=== PATIENT | male | born 1950 | race Caucasian/White ===

== ENCOUNTER 2017-06-18 09:00 | Inpatient (IN) ==
[2017-06-18] MEDS ORDERED: *HR* HYDROmorphone (PF) 1 MG/ML SYRINGE IVP ONE (09:12)
[2017-06-18] MEDS ORDERED: 0.9 % Sodium Chloride 1,000 ML IVC ONE (09:12)
--- NOTE | 2017-06-18 09:29 | Emergency Department Note ---
Disposition Clinical Impression: Left acetabular fracture Qualifiers: Encounter type: initial encounter Sublocation of acetabulum: unspecified portion of acetabulum Fracture type: closed Fracture alignment: nondisplaced Qualified Code(s): S32.402A - Unspecified fracture of left acetabulum, initial encounter for closed fracture Disposition: Admitted As Inpatient Condition: Good Referrals: NONE,PCP [Non-Partnered Physician] - Forms: ED Satisfaction Letter Time of Disposition: 12:08 Extremity Problem HPI - General Chief complaint: ED Extremity Problem,Nontraumatic Stated complaint: L hip pain Time Seen by Provider: 06/18/17 09:02 Source: patient Limitations: no limitations Nursing Notes Reviewed: Yes Vital Signs Reviewed: Yes - History of Present Illness HPI Narrative: 66 year old male who was most recently diagnosed with lung cancer and has lytic lesions to his left hip staets that about 7 weeks ago he injured his left hip while he was trimming a tree which incidentally started his workup because of findings of lytic lesions to his right and left hip. He has been recieviing radiation therapy per Dr. Rico in addition was schedled to start Chemotherapy thsi week He staes that since last night he has been experiencing increased left hip pain to the point that he is not able to ambulate. at baseline luis has been wallkig with a walker and since last night to this morning he can no longer bear weight on his left hip secondary to pain. Motor/ sensory and pulses intact. 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 Luis is concerned for osteomyleitis vs, pathologic fracture Pain Scale: 10 - Related Data Home Medications Medication Instructions Recorded Confirmed Albuterol Sulfate [Ventolin Hfa] 2 puff IH Q4H PRN 05/23/17 06/18/17 Umeclidinium Brm/Vilanterol Tr 1 puff IH DAILY 05/23/17 06/18/17 [Anoro Ellipta 62.5-25 Mcg INH] amLODIPine [Norvasc] 5 mg PO BID 05/23/17 06/18/17 Previous Rx's Medication Instructions Recorded Sennosides [Senna] 1 tab PO BID PRN #60 tablet 05/24/17 OxyCODONE/APAP 5/325 [Percocet 1 tab PO Q6-8H PRN #90 06/03/17 5/325 MG] Folic Acid 1 mg PO DAILY #30 tablet 06/05/17 Allergies Allergy/AdvReac Type Severity Reaction Status Date / Time codeine Allergy Hives Verified 05/23/17 12:15 Constitutional: Denies: fever, chills, weakness, weight change Eyes: Denies: eye pain, eye discharge, vision change ENT ED: Denies: ear pain, throat pain, dental pain, hearing loss, epistaxis, congestion, dysphagia Cardiovascular: Denies: chest pain, palpitations, dyspnea on exertion, edema, syncope Respiratory: Denies: cough, dyspnea, wheezes, hemoptysis, stridor Gastrointestinal: Denies: abdominal pain, nausea, vomiting, diarrhea, constipation, hematemesis, melena, hematochezia Genitourinary: Denies: urgency, dysuria, frequency, hematuria Musculoskeletal: Reports: other (left hip pain). Denies: back pain, neck pain, arthralgia, myalgia Integumentary: Denies: rash, abrasion, lesions Neurological: Denies: headache, weakness, numbness, paresthesias, confusion, abnormal gait, vertigo Psychiatric: Denies: anxiety, depression, suicidal thoughts, homicidal thoughts , auditory hallucinations, visual hallucinations Endocrine: Denies: fatigue Hematological/Lymphatic: Denies: easy bleeding, easy bruising Allergic/Immunologic: Denies: facial swelling, urticaria Past Medical History - Past Medical History Medical history: Reports: cancer, hypertension, other Surgical history: Reports: other Psychiatric history: Reports: no psych history - Social History Smoking Status: Current every day smoker Smokeless Tobacco Status: No Alcohol use: Reports: rarely Drug use: Reports: none Physical Exam - General Limitations: no limitations General appearance: alert, in no apparent distress - Head Head exam: atraumatic, normocephalic, normal inspection - Eye Eye exam: Present: normal appearance, PERRL, EOMI - Expanded Eye Exam Pupils: Left: reactive - ENT ENT exam: normal exam, normal oropharynx, mucous membranes moist - Expanded ENT Exam External ear exam: Present: normal external inspection Mouth exam: Present: normal external inspection Teeth exam: Present: normal inspection Throat exam: Present: normal inspection - Neck Neck exam: Present: normal inspection, full ROM, trachea midline - Chest Chest inspection: Present: normal inspection, symmetric chest wall rise - Respiratory Respiratory exam: Present: normal lung sounds bilaterally - Cardiovascular Cardiovascular exam: Present: regular rate, normal rhythm, normal heart sounds - Abdominal Exam Abdominal exam: Present: soft, Non-Tender. Absent: tenderness, distention, guarding, rebound, rigidity - Extremities Exam Extremities exam: Present: normal inspection, full ROM. Absent: tenderness, pedal edema - Expanded Upper Extremity Exam Shoulder exam: Present: normal inspection, full ROM Arm exam: Present: normal inspection, full ROM Elbow exam: Present: normal inspection, full ROM Forearm/Wrist exam: Present: normal inspection, full ROM Hand exam: Present: normal inspection, full ROM Vascular exam: Normal: capillary refill, radial pulse - Expanded Lower Extremity Exam Hip/Pelvis exam: Present: normal inspection, tenderness (left acetabulum, decreased of ROM secondary to pain). Absent: full ROM, swelling Upper leg exam: Present: normal inspection, full ROM Knee exam: Present: normal inspection, full ROM Lower leg exam: Present: normal inspection, full ROM Ankle exam: Present: normal inspection, full ROM Foot/toe exam: Present: normal inspection, full ROM Neurovascular/Tendon exam: Absent: motor deficit, sensory deficit, tendon deficit - Back Exam Back exam: Present: normal inspection, full ROM. Absent: tenderness - Neurological Exam Neurological exam: Present: alert, oriented X3 - Expanded Neurological Exam Patient oriented to: Present: person, place, time Coma Scale Eye Opening: Spontaneous Coma Scale Motor Response: Obeys Commands Coma Scale Verbal Response: Oriented Coma Scale Total: 15 - Psychiatric Psychiatric exam: Present: normal affect, normal mood - Skin Skin exam: Present: warm, dry, intact, normal color Course Course Narrative: we will do a CT and IV dliaudid for pain control - Reevaluation(s) Reevaluation #1: updated patient on reults and he is agreeable with plan Time: 12:16 - Consultations Consultation #1: discussed case with Dr. Murcia and he will consult luis with admission to medicine. Time: 12:07 Consultation #2: discussed case with Dr. Hodges and she acceps patient for admission. Time: 12:16 Vital Signs Temperature 98.5 F 06/18/17 09:05 Pulse Rate 99 06/18/17 09:05 Respiratory Rate 15 06/18/17 09:05 Blood Pressure 174/108 06/18/17 09:05 O2 Sat by Pulse Oximetry 93 06/18/17 09:05 Temperature 98.5 F 06/18/17 09:05 Pulse Rate 95 06/18/17 10:58 Respiratory Rate 16 06/18/17 10:58 Blood Pressure 160/89 06/18/17 10:58 O2 Sat by Pulse Oximetry 98 06/18/17 10:58 Oxygen Delivery Oxygen Delivery Room Air Extremity Problem, Nontraumati - Lab Data Result diagrams: 06/18/17 09:19 06/18/17 09:19 Lab Results 06/18/17 06/18/17 06/18/17 Range/Units 09:19 09:19 09:19 WBC 10.0 (4.3-11.1) K/mcL RBC 4.44 (4.19-5.50) M/mcL Hgb 14.3 (12.9-16.9) g/dL Hct 40.8 (37.5-50.1) % MCV 91.9 (83.0-100.0) fL MCH 32.2 (28.0-33.3) pg MCHC 35.0 (31.6-35.5) g/dL RDW 12.7 (11.5-14.5) % Plt Count 205 (140-400) K/mcL MPV 8.7 L (9.4-12.4) fL Immature Gran % 0.5 (0-4) % Seg Neutrophils % 84.4 % Lymphocytes % 4.6 % Monocytes % 8.6 % Eosinophils % 1.4 % Basophils % 0.5 % Neutrophils # 8.4 (1.6-8.9) K/mcL Lymphocytes # 0.5 L (0.6-4.6) K/mcL Monocytes # 0.9 (0.0-1.3) K/mcL Eosinophils # 0.1 (0.0-0.6) K/mcL Basophils # 0.1 (0.0-0.2) K/mcL Immature Plt Fraction 2.3 (1.1-6.1) % ESR 61 H (0-10) mm/hr Sodium 131 L (136-145) mEq/L Potassium 3.9 (3.5-4.5) mEq/L Chloride 97 L (98-109) mEq/L Carbon Dioxide 24 (19-29) mEq/L BUN 8 (8-26) mg/dL Creatinine 0.83 (0.72-1.25) mg/dL Est GFR ( Amer) > 60 (> 60) Est GFR (Non-Af Amer) > 60 (> 60) BUN/Creatinine Ratio 10 (6-26) Glucose 101 H (70-99) mg/dL Calculated Osmolality 270 L (280-300) Lactic Acid (0.5-2.2) mmol/L Calcium 9.4 (8.6-10.8) mg/dL Total Bilirubin 0.4 (0.2-1.2) mg/dL AST 15 (5-34) Units/L ALT 14 (0-55) Units/L Alkaline Phosphatase 155 H (38-126) Units/L C-Reactive Protein 35 H (Less than 5) mg/L Serum Total Protein 7.5 (6.0-8.3) g/dL Albumin 3.6 (3.5-5.0) g/dL Globulin 3.9 H (2.4-3.5) g/dL Albumin/Globulin Ratio 0.9 L (1.1-2.2) 06/18/17 Range/Units 09:19 WBC (4.3-11.1) K/mcL RBC (4.19-5.50) M/mcL Hgb (12.9-16.9) g/dL Hct (37.5-50.1) % MCV (83.0-100.0) fL MCH (28.0-33.3) pg MCHC (31.6-35.5) g/dL RDW (11.5-14.5) % Plt Count (140-400) K/mcL MPV (9.4-12.4) fL Immature Gran % (0-4) % Seg Neutrophils % % Lymphocytes % % Monocytes % % Eosinophils % % Basophils % % Neutrophils # (1.6-8.9) K/mcL Lymphocytes # (0.6-4.6) K/mcL Monocytes # (0.0-1.3) K/mcL Eosinophils # (0.0-0.6) K/mcL Basophils # (0.0-0.2) K/mcL Immature Plt Fraction (1.1-6.1) % ESR (0-10) mm/hr Sodium (136-145) mEq/L Potassium (3.5-4.5) mEq/L Chloride (98-109) mEq/L Carbon Dioxide (19-29) mEq/L BUN (8-26) mg/dL Creatinine (0.72-1.25) mg/dL Est GFR ( Amer) (> 60) Est GFR (Non-Af Amer) (> 60) BUN/Creatinine Ratio (6-26) Glucose (70-99) mg/dL Calculated Osmolality (280-300) Lactic Acid 1.0 (0.5-2.2) mmol/L Calcium (8.6-10.8) mg/dL Total Bilirubin (0.2-1.2) mg/dL AST (5-34) Units/L ALT (0-55) Units/L Alkaline Phosphatase (38-126) Units/L C-Reactive Protein (Less than 5) mg/L Serum Total Protein (6.0-8.3) g/dL Albumin (3.5-5.0) g/dL Globulin (2.4-3.5) g/dL Albumin/Globulin Ratio (1.1-2.2)
[2017-06-18 09:30] LABS: Basophils # 0.1 K/mcL (0.0-0.2); Basophils % 0.5 %; Eosinophils # 0.1 K/mcL (0.0-0.6); Eosinophils % 1.4 %; Hematocrit 40.8 % (37.5-50.1); Hemoglobin 14.3 g/dL (12.9-16.9); Immature Granulocytes % 0.5 % (0-4); Immature Platelets 2.3 % (1.1-6.1); Lymphocytes # 0.5 K/mcL (0.6-4.6); Lymphocytes % 4.6 %; Mean Corpuscular Hemoglobin 32.2 pg (28.0-33.3); Mean Corpuscular Volume 91.9 fL (83.0-100.0); Mean Platelet Volume 8.7 fL (9.4-12.4); Monocytes # 0.9 K/mcL (0.0-1.3); Monocytes % 8.6 %; Neutrophils # 8.4 K/mcL (1.6-8.9); Platelet Count 205 K/mcL (140-400); Red Blood Count 4.44 M/mcL (4.19-5.50); Red Cell Distribution Width 12.7 % (11.5-14.5); Segmented Neutrophils % 84.4 %
[2017-06-18 09:44] LABS: Alanine Aminotransferase 14 Units/L (0-55); Albumin 3.6 g/dL (3.5-5.0); Albumin/Globulin Ratio 0.9 (1.1-2.2); Alkaline Phosphatase 155 Units/L (38-126); Aspartate Amino Transferase 15 Units/L (5-34); BUN/Creatinine Ratio 10 (6-26); Bilirubin,Total 0.4 mg/dL (0.2-1.2); Blood Urea Nitrogen 8 mg/dL (8-26); C-Reactive Protein 35 mg/L (Less than 5); Calcium 9.4 mg/dL (8.6-10.8); Carbon Dioxide 24 mEq/L (19-29); Chloride 97 mEq/L (98-109); Globulin 3.9 g/dL (2.4-3.5); Glucose 101 mg/dL (70-99); Osmolality,Calculated 270 (280-300); Potassium 3.9 mEq/L (3.5-4.5); Sodium 131 mEq/L (136-145); Total Protein 7.5 g/dL (6.0-8.3); eGFR For African Americans > 60 (> 60); eGFR For Non-African Americans > 60 (> 60)
[2017-06-18] MEDS ORDERED: Acetaminophen 325 MG TABLET PO PRN (14:10)
[2017-06-18] MEDS ORDERED: Naloxone 0.4 MG/ML INJ IVP PRN (14:10)
[2017-06-18] MEDS ORDERED: *HR* HYDROmorphone (PF) 1 MG/ML SYRINGE IVP PRN (14:10)
[2017-06-18] MEDS ORDERED: Ondansetron 4 MG/2 ML VIAL IVP PRN (14:10)
--- NOTE | 2017-06-18 15:06 | Internal Med History&Physical ---
Date of Encounter: 06/18/17 Time of Encounter: 15:07 Assessment and Plan (1) Left acetabular fracture Current visit: Yes Status: Acute Patient presented with increased left hip pain. CT pelvis showed pathologic fracture of left acetabulum. Percocet, morphine PRN for pain Dr. Murcia of orthopedic surgery consulted and will see patient. PT/OT consults Qualifiers: Encounter type: initial encounter Sublocation of acetabulum: unspecified portion of acetabulum Fracture type: closed Fracture alignment: nondisplaced Qualified Code(s): S32.402A - Unspecified fracture of left acetabulum, initial encounter for closed fracture (2) COPD (chronic obstructive pulmonary disease) Current visit: Yes Status: Acute Patient not reporting any increased SOB or cough. He is not in exacerbation. Continue home doses of medications. Qualifiers: COPD type: unspecified COPD Qualified Code(s): J44.9 - Chronic obstructive pulmonary disease, unspecified (3) Smoker Current visit: Yes Status: Acute Patient continues to smoke despite lung cancer diagnosis. He reports he has tried to quit multiple times. Offered encouragement. Nicotine patch and smoking cessation education ordered. (4) Primary cancer of right lung metastatic to other site Current visit: Yes Status: Chronic Patient with known metastatic lung cancer and follows with Dr. Khanna as an outpatient. He has had palliative radiation to his pelvis with Dr. Rico. He is scheduled to start chemo this week and is concerned about potential delay. Oncology consulted and will see patient. (5) DVT prophylaxis Current visit: Yes Status: Acute SCDs Heparin TID Internal Medicine - H&P: HPI Chief complaint: left hip pain Admitted From: Emergency Dept Plans for Post Hospital Care: Home History of present illness: Mr. Santoyo is a 66 year old male with hypertension, COPD, and metastatic lung cancer presented to the emergency department today with increased left hip pain. Patient had bilateral hip pain associated with his metastasis for several weeks, his right hip pain improved with palliative radiation, his left hip pain progressed and yesterday he was unable to bear any weight over tolerate any movement of the hip joint without severe pain. He denies any loss of movement or sensation in the lower left leg. He denies any chest pain, shortness of breath, palpitations, fever, chills or sweats. Evaluation in the emergency department included a CT of the pelvis which showed pathologic fracture of the left lateral acetabular roof, as well as chronic lytic lesions in both hips. ESR was elevated at 61, CRP and Alk phos were also elevated. He was mildly hyponatremic with sodium of 131. Lactate was normal at 1.0. Other labs are grossly normal. On exam, patient alert and oriented, in no acute distress. Lungs with diminished breath sounds bilaterally, heart has regular rate and rhythm. Hip is not tender to palpation, but patient does have severe pain with any passive range of motion of the left hip. Past Med Surg Social Fam HX - Past Medical History Medical history: cancer (metastatic lung cancer), COPD, hypertension, other Psychiatric history: no psych history - Past Surgical History Surgical History: no surgical history, other - Social History Smoking Status: Current every day smoker Smokeless Tobacco Status: No Alcohol use: rarely Drug use: none - Family History Brother Living Status: Age at : 61 Cause of : Prostate cancer Hx Family Cancer: Yes Grandmother Living Status: Age at : 95 Hx Family Cancer: Yes Grandfather Living Status: Age at : 90 Hx Family Cancer: Yes Internal Medicine - H&P: Meds Albuterol Sulfate [Ventolin Hfa] 2 puff IH Q4H PRN 05/23/17 [History] Umeclidinium Brm/Vilanterol Tr [Anoro Ellipta 62.5-25 Mcg INH] 1 puff IH DAILY 05/23/17 [History] amLODIPine [Norvasc] 5 mg PO BID 05/23/17 [History] OxyCODONE/APAP 5/325 [Percocet 5/325 MG] 1 tab PO Q6-8H PRN #90 06/03/17 [Rx] Folic Acid 1 mg PO DAILY #30 tablet 06/05/17 [Rx] Docusate [Colace] 100 mg PO BID 06/18/17 [History] 3 Allergy/AdvReac Type Severity Reaction Status Date / Time codeine Allergy Hives Verified 05/23/17 12:15 All Systems PM: A 10-system review of systems was performed and is negative for pertinent findings except as documented above in the HPI. - Constitutional Constitutional: anorexia, no chills, no fever(s), no night sweats - EENT Eyes: no change in vision, no discharge, no pain, no photophobia Ears: no ear discharge, no ear pain, no tinnitus Nose, mouth and throat: no dysphagia, no nasal discharge, no neck pain, no sore throat - Cardiovascular Cardiovascular ROS IM: no chest pain, no diaphoresis, no dyspnea, no lightheadedness, no palpitations, no syncope - Respiratory Respiratory: cough (dry), no dyspnea, no wheezing, no excessive phlegm production - Gastrointestinal Gastrointestinal: no abdominal pain, no diarrhea, no hematemesis, no hematochezia, no melena, no nausea, no vomiting - Musculoskeletal Musculoskeletal ROS IM: no numbness, no tingling Additional comments: pain of left hip - Integumentary Integumentary IM: no rash, no unusual bruising - Neurological Neurological ROS: no confusion, no convulsions, no focal weakness, no numbness, no tingling, no tremor(s) - Hematologic/Lymphatic Hematologic/Lymphatic: no easy bruising - Constitutional Vitals: Temp Pulse Resp BP Pulse Ox 98.5 F 78 0 0/0 99 06/18/17 09:05 06/18/17 12:39 06/18/17 12:40 06/18/17 12:40 06/18/17 12:39 General appearance: Present: A&O X 3, pleasant, no acute distress - Head Head exam: Present: atraumatic, normocephalic - Eye Eye exam: Present: PERRL, conjuntiva pink, sclera anicteric Pupils: Present: PERRL - Neck Neck exam general surgery: Present: supple, trachea midline. Absent: lymphadenopathy - Respiratory Respiratory exam: Present: decreased breath sounds. Absent: accessory muscle use, rales, rhonchi, wheezes - Cardiovascular Cardiovascular exam: Present: RRR, +S1, +S2. Absent: diastolic murmur, gallop, rubs, systolic murmur - GI/Abdominal GI/Abdominal exam: Present: normal bowel sounds, soft, no peritoneal signs. Absent: distended, tenderness - Extremities Exam Extremities exam: Present: warm, radial pulses palpable and symmetrical. Absent : calf tenderness, cyanotic, pedal edema Additional comments: Pain with passive range of motion of left hip. - Neurological Exam Neurological exam: Present: CN II-XII intact, oriented X3, no focal deficits. Absent: pronater drift, facial droop, speech deficit - Skin Skin exam: Present: dry, intact Internal Med - H&P Results - Labs CBC & Chem 7: 06/18/17 09:19 06/18/17 09:19 Labs: All Lab Results (24 Hours) 06/18/17 06/18/17 06/18/17 Range/Units 09:19 09:19 09:19 WBC 10.0 (4.3-11.1) K/mcL RBC 4.44 (4.19-5.50) M/mcL Hgb 14.3 (12.9-16.9) g/dL Hct 40.8 (37.5-50.1) % MCV 91.9 (83.0-100.0) fL MCH 32.2 (28.0-33.3) pg MCHC 35.0 (31.6-35.5) g/dL RDW 12.7 (11.5-14.5) % Plt Count 205 (140-400) K/mcL MPV 8.7 L (9.4-12.4) fL Immature Gran % 0.5 (0-4) % Seg Neutrophils % 84.4 % Lymphocytes % 4.6 % Monocytes % 8.6 % Eosinophils % 1.4 % Basophils % 0.5 % Neutrophils # 8.4 (1.6-8.9) K/mcL Lymphocytes # 0.5 L (0.6-4.6) K/mcL Monocytes # 0.9 (0.0-1.3) K/mcL Eosinophils # 0.1 (0.0-0.6) K/mcL Basophils # 0.1 (0.0-0.2) K/mcL Immature Plt Fraction 2.3 (1.1-6.1) % ESR 61 H (0-10) mm/hr Sodium 131 L (136-145) mEq/L Potassium 3.9 (3.5-4.5) mEq/L Chloride 97 L (98-109) mEq/L Carbon Dioxide 24 (19-29) mEq/L BUN 8 (8-26) mg/dL Creatinine 0.83 (0.72-1.25) mg/dL Est GFR ( Amer) > 60 (> 60) Est GFR (Non-Af Amer) > 60 (> 60) BUN/Creatinine Ratio 10 (6-26) Glucose 101 H (70-99) mg/dL Calculated Osmolality 270 L (280-300) Lactic Acid (0.5-2.2) mmol/L Calcium 9.4 (8.6-10.8) mg/dL Total Bilirubin 0.4 (0.2-1.2) mg/dL AST 15 (5-34) Units/L ALT 14 (0-55) Units/L Alkaline Phosphatase 155 H (38-126) Units/L C-Reactive Protein 35 H (Less than 5) mg/L Serum Total Protein 7.5 (6.0-8.3) g/dL Albumin 3.6 (3.5-5.0) g/dL Globulin 3.9 H (2.4-3.5) g/dL Albumin/Globulin Ratio 0.9 L (1.1-2.2) 06/18/17 Range/Units 09:19 WBC (4.3-11.1) K/mcL RBC (4.19-5.50) M/mcL Hgb (12.9-16.9) g/dL Hct (37.5-50.1) % MCV (83.0-100.0) fL MCH (28.0-33.3) pg MCHC (31.6-35.5) g/dL RDW (11.5-14.5) % Plt Count (140-400) K/mcL MPV (9.4-12.4) fL Immature Gran % (0-4) % Seg Neutrophils % % Lymphocytes % % Monocytes % % Eosinophils % % Basophils % % Neutrophils # (1.6-8.9) K/mcL Lymphocytes # (0.6-4.6) K/mcL Monocytes # (0.0-1.3) K/mcL Eosinophils # (0.0-0.6) K/mcL Basophils # (0.0-0.2) K/mcL Immature Plt Fraction (1.1-6.1) % ESR (0-10) mm/hr Sodium (136-145) mEq/L Potassium (3.5-4.5) mEq/L Chloride (98-109) mEq/L Carbon Dioxide (19-29) mEq/L BUN (8-26) mg/dL Creatinine (0.72-1.25) mg/dL Est GFR ( Amer) (> 60) Est GFR (Non-Af Amer) (> 60) BUN/Creatinine Ratio (6-26) Glucose (70-99) mg/dL Calculated Osmolality (280-300) Lactic Acid 1.0 (0.5-2.2) mmol/L Calcium (8.6-10.8) mg/dL Total Bilirubin (0.2-1.2) mg/dL AST (5-34) Units/L ALT (0-55) Units/L Alkaline Phosphatase (38-126) Units/L C-Reactive Protein (Less than 5) mg/L Serum Total Protein (6.0-8.3) g/dL Albumin (3.5-5.0) g/dL Globulin (2.4-3.5) g/dL Albumin/Globulin Ratio (1.1-2.2) - Diagnostic Studies CT scan - pelvis Additional comments: Pelvis CT 06/18/17 09:12 IMPRESSION: 1. Lytic lesion involving the left acetabulum most suspicious for osseous metastasis. There is associated pathologic fracture of the lateral left acetabular roof. 2. Lytic lesion involving the medial right iliac bone with associated heterogeneous soft tissue mass extending into the adjacent musculature, as described above. 3. Infrarenal abdominal aortic aneurysm measuring at least 3.6 cm in diameter. This was seen in its entirety on the preceding CT from 05/17/2017. Please refer to recommendations in that report for future follow-up. D/ / 06/18/2017 11:34:48 Emani Chery MD / lópez Interpreting Provider: Emani Chery MD
[2017-06-18] MEDS ORDERED: *HR* Morphine 2 MG/ML SYRINGE IVP PRN (15:31)
[2017-06-18] MEDS: Nicotine 14 MG PATCH.TD24 TD SCH (15:38)
--- NOTE | 2017-06-18 17:20 | Orthopedic Consult Note ---
Date of Encounter: 06/18/17 Time of Encounter: 17:08 Assessment and Plan (1) Metastatic cancer to bone Current Visit: Yes Status: Acute Patient's case reviewed with . CT scan shows new linear lucency, along acetabulum, concerning for fracture. Because of the significant lesion and metastasis, this is likely a pathological fracture, which may contribute the the increase in his pain. We discussed both conservative and surgical options. Conservative options: Palliative management, pain control, PT as tolerated, along with further pelvic support. Will get SI belt to aid with support and ambulation. Discussed with oncologist, who also recommended further radiation treatment for palliative control. Surgical options: Total Hip Replacement I reviewed both risks and benefits to both options, including fracture, infection, blood clot, medical complications, along with hardware failure and - all associated with surgical management. At this time, patient would like to proceed with conservative treatment, focusing on pain control and management of his primary lung cancer through chemotherapy and medications. aware. (2) Primary cancer of right lung metastatic to other site Current Visit: Yes Status: Chronic (3) COPD (chronic obstructive pulmonary disease) Current Visit: Yes Status: Acute Qualifiers: COPD type: unspecified COPD Qualified Code(s): J44.9 - Chronic obstructive pulmonary disease, unspecified (4) Smoker Current Visit: Yes Status: Acute History of Present Illness Chief complaint: Hip Pain - Left HPI: Mr. Santoyo is a 66 year old male, Adenomacarcinoma of lung, associated with metastatic bone involvement to Right pelvis, left acetabulum and vertebrae. Other comorbidities: hypertension, COPD. Patient admitted to [facility] secondary to increase in Left hip pain that started last night. He was ambulatory prior to his increase in pain; however he is now unable to ambulate because of his left hip pain. He is unable to tolerate movement of the hip joint without severe pain. Laying in bed, he has no pain. He states his pain is a pinpoint pain to lateral aspect of hip joint. He denies any loss of movement or sensation in the lower left leg. He denies N/T or radiation of pain to left LE. He denies any falls or trauma to hip. Workup for this started in April. Left Hip MRI 04/2017: FINDINGS: BONE MARROW: There is extensive abnormal low T1, T2 signal within the visualized lower lumbar spine concerning for infiltrating marrow process. Additional note made of a destructive mass involving the right innominate measuring up to 8.6 x 7.1 cm. The lesion demonstrates cortical disruption and extends through the SI joint. There is associated extraosseous manifestation. The lesion is mildly hyperintense on T1 weighted signal and mixed hyperintense on T2 signal weighted imaging. There is a similar appearing lesion within the left acetabulum with associated cortical disruption anteriorly. The lesion involving the left acetabulum measuring up to 6.3 x 3.3 cm. Additional scattered lesions within the left femoral neck, left ischial tuberosity. HIP JOINT: Mild narrowing of the left hip joint space. There is no evidence of synovitis. LABRUM: There is no evidence of paralabral cyst. BURSAE: There is no evidence of trochanteric bursitis. Distention of the left iliopsoas bursa noted. SCIATIC NERVE: The course of the sciatic nerve is normal and there is no abnormal mass seen impinging on it. MUSCLES / TENDONS: There is no evidence of intramuscular strain or tear. INTRAPELVIC CONTENTS / SOFT TISSUES: Scattered colonic diverticula are appreciated. MR/MR hip LT wo con IMPRESSION: 1. Multiple scattered lytic destructive lesions concerning for metastatic disease, the largest involving the right innominate with extraosseous manifestation 8.6 x 7.1 cm. 2. Marrow infiltrating process lumbar spine. Correlate hematologic assessment. Multiple myeloma should be excluded. Left ABD/Pelvis CT 05/17/17 Bones/Soft Tissues: Large destructive bony lesion involving the superior medial right iliac wing. The lesion measures about 7.5 cm across, 6.5 cm AP and 6.1 cm in height. Extension across the sacroiliac joint is seen with involvement of the right side of the sacrum. Heterogeneous density of the bony pelvis consistent with additional metastatic disease. Additional lytic lesion in the left superior acetabulum measuring 4 cm across, 3.9 cm AP and about 2.8 cm in height. No spinal fracture or definite destructive bony lesions seen. Large direct right inguinal hernia containing unobstructed loops of small bowel. Hernia sac extends into the scrotum. CT/CT abd pelvis w iv and oral IMPRESSION: 3.3 cm spiculated right lower lobe lesion consistent primary lung cancer. Large destructive metastatic lesion involving the posterior superior medial right iliac wing and right sacrum. Additional destructive lesion in the superior left acetabulum. Smaller lesions also suspected in the bony pelvis. No evident hepatic or adrenal metastatic disease. Small nonobstructing calculus superiorly in the right kidney. Small abdominal aortic aneurysm. Large direct right inguinal hernia containing loops of small bowel. Marked enlargement of the prostate. Left Hip CT 06/18/17: CT/CT pelvis w iv no oral IMPRESSION: 1. Lytic lesion involving the left acetabulum most suspicious for osseous metastasis. There is associated pathologic fracture of the lateral left acetabular roof. 2. Lytic lesion involving the medial right iliac bone with associated heterogeneous soft tissue mass extending into the adjacent musculature, as described above. 3. Infrarenal abdominal aortic aneurysm measuring at least 3.6 cm in diameter. This was seen in its entirety on the preceding CT from 05/17/2017. Please refer to recommendations in that report for future follow-up. Patient had bilateral hip pain associated with his metastasis for several weeks , and he underwent palliative radiation low-dose to his Right pelvis and Left Hip. His right hip pain improved with palliative radiation, his left hip pain progressed. He has had bone bx confirming bone metastasis associated with lung cancer. He is scheduled to start his chemotherapy and treatments 06/20/17 for his Lung Adenocarcinoma. He denies any chest pain, shortness of breath, palpitations, fever, chills or sweats. Evaluation in the emergency department included a CT of the pelvis which showed pathologic fracture of the left lateral acetabular roof, as well as chronic lytic lesions in both hips. ESR was elevated at 61, CRP and Alk phos were also elevated. He was mildly hyponatremic with sodium of 131. Lactate was normal at 1.0. Other labs are grossly normal. Exam: A&O x 3 Left Hip No swelling, erythema or ecchymosis. No obvious deformity noted. ROM limited secondary to pain with both PROM and AROM. Unable to WB. Strength - limited eval secondary to pain. NV intact distally. Past Med Surg Social Fam HX - Past Medical History Medical history: cancer (metastatic lung cancer), COPD, hypertension, other Psychiatric history: no psych history - Past Surgical History Surgical History: no surgical history, other - Social History Smoking Status: Current every day smoker Smokeless Tobacco Status: No Alcohol use: rarely Drug use: none - Family History Brother Living Status: Age at : 61 Cause of : Prostate cancer Hx Family Cancer: Yes Grandmother Living Status: Age at : 95 Hx Family Cancer: Yes Grandfather Living Status: Age at : 90 Hx Family Cancer: Yes Medications and Allergies Albuterol Sulfate [Ventolin Hfa] 2 puff IH Q4H PRN 05/23/17 [History] Umeclidinium Brm/Vilanterol Tr [Anoro Ellipta 62.5-25 Mcg INH] 1 puff IH DAILY 05/23/17 [History] amLODIPine [Norvasc] 5 mg PO BID 05/23/17 [History] OxyCODONE/APAP 5/325 [Percocet 5/325 MG] 1 tab PO Q6-8H PRN #90 06/03/17 [Rx] Folic Acid 1 mg PO DAILY #30 tablet 06/05/17 [Rx] Docusate [Colace] 100 mg PO BID 06/18/17 [History] 3 Allergy/AdvReac Type Severity Reaction Status Date / Time codeine Allergy Hives Verified 05/23/17 12:15 All Systems Reviewed: A 10-system review of systems was performed and is negative for pertinent findings except as documented above in the HPI. - Constitutional Constitutional: as per HPI - Cardiovascular Cardiovascular: as per HPI - Respiratory Respiratory: as per HPI - Musculoskeletal Musculoskeletal: as per HPI Physical Exam - Constitutional Vitals: Temp Pulse Resp BP Pulse Ox 98.0 F 90 16 136/86 97 06/18/17 15:55 06/18/17 15:55 06/18/17 15:55 06/18/17 15:55 06/18/17 15:55 - Hip left Gait: other Tenderness with palpation: anterior, lateral ROM: extension: abnormal ROM: flexion: abnormal ROM: abduction: abnormal ROM: adduction: abnormal Strength: extension: Weak Strength: flexion: Weak Results - Labs Result Diagrams: 06/18/17 09:19 06/18/17 09:19 Labs: Abnormal lab results MPV 8.7 fL (9.4-12.4) L 06/18/17 09:19 Lymphocytes # 0.5 K/mcL (0.6-4.6) L 06/18/17 09:19 ESR 61 mm/hr (0-10) H 06/18/17 09:19 Sodium 131 mEq/L (136-145) L 06/18/17 09:19 Chloride 97 mEq/L (98-109) L 06/18/17 09:19 Glucose 101 mg/dL (70-99) H 06/18/17 09:19 Calculated Osmolality 270 (280-300) L 06/18/17 09:19 Alkaline Phosphatase 155 Units/L (38-126) H 06/18/17 09:19 C-Reactive Protein 35 mg/L (Less than 5) H 06/18/17 09:19 Globulin 3.9 g/dL (2.4-3.5) H 06/18/17 09:19 Albumin/Globulin Ratio 0.9 (1.1-2.2) L 06/18/17 09:19 All other labs normal. - Diagnostic results Hip x-ray: report reviewed, image reviewed Hip MRI: report reviewed, image reviewed Hip CT: report reviewed, image reviewed Pelvic AP x-ray: report reviewed, image reviewed Consult Discharge Plan - Plan Referrals: Yovanny Briceno Jr, MD [Primary Care Provider] -
--- NOTE | 2017-06-18 18:46 | Oncology Inp Consult Note ---
Date of Encounter: 06/18/17 Time of Encounter: 17:00 Assessment and Plan (1) Primary cancer of right lung metastatic to other site Status: Chronic Assessment and plan: Patient with stage IV adenocarcinoma of the lung, with bony metastatic disease to both hips, status post radiation to the right and left hip acetabular region over 5 fractions, patient has noticed worsening pain with fracture of roof of a stab-wound, unable to move left hip. I will discuss with rad onc for any possibility of addition RT around the area for pain control. Orthopedics bedside discussing with patient treatment options- SI belt for support/any palliative surgical intervention. Systemic chemotherapy/PDLI depending on status-- to be rescheduled to be received in clinic. 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 Right hilar lymphadenopathy, status post bronchoscopy biopsy showed adenocarcinoma, TTF-1 was positive. Patient had received palliative radiotherapy to the left acetabular lesion, right ilium as well as C3 vertebral disease. He is scheduled to receive systemic treatment this week but hospitalized due to increasing pain in the left hip. Patient reports that radiation had help control her right hip pain. Patient is unable to move the left hip and imaging shows a lytic lesion involving the left acetabulum with associated pathologic fracture of lateral left acetabular roof. Of systems is significant for left hip pain. Past Med Surg Social Fam HX - Past Medical History Medical history: cancer (metastatic lung cancer), COPD, hypertension, other Psychiatric history: no psych history - Past Surgical History Surgical History: no surgical history, other - Social History Smoking Status: Current every day smoker Smokeless Tobacco Status: No Alcohol use: rarely Drug use: none - Family History Brother Living Status: Age at : 61 Cause of : Prostate cancer Hx Family Cancer: Yes Grandmother Living Status: Age at : 95 Hx Family Cancer: Yes Grandfather Living Status: Age at : 90 Hx Family Cancer: Yes Medications and Allergies Albuterol Sulfate [Ventolin Hfa] 2 puff IH Q4H PRN 05/23/17 [History] Umeclidinium Brm/Vilanterol Tr [Anoro Ellipta 62.5-25 Mcg INH] 1 puff IH DAILY 05/23/17 [History] amLODIPine [Norvasc] 5 mg PO BID 05/23/17 [History] OxyCODONE/APAP 5/325 [Percocet 5/325 MG] 1 tab PO Q6-8H PRN #90 06/03/17 [Rx] Folic Acid 1 mg PO DAILY #30 tablet 06/05/17 [Rx] Docusate [Colace] 100 mg PO BID 06/18/17 [History] 3 Allergy/AdvReac Type Severity Reaction Status Date / Time codeine Allergy Hives Verified 05/23/17 12:15 Review of systems: as in HPI Oncology - Exam - Constitutional Vitals: Temp Pulse Resp BP Pulse Ox 98.0 F 90 16 136/86 97 06/18/17 15:55 06/18/17 15:55 06/18/17 15:55 06/18/17 15:55 06/18/17 15:55 General appearance: thin - Head Head exam: Present: atraumatic, normal inspection - Eye Eye exam: Present: sclera anicteric - ENT ENT exam: Present: mucous membranes moist - Neck Neck exam: Present: full ROM - Respiratory Respiratory exam: Present: CTAB - Cardiovascular Cardiovascular exam: Present: +S1, +S2 - GI/Abdominal GI/Abdominal exam: Present: normal bowel sounds, soft - Extremities Exam Additional comments: no edema, unable to move left hip due to pain - Neurological Exam Neurological exam: Present: alert, CN II-XII intact, oriented X3 - Psychiatric Psychiatric exam: Present: normal affect Oncology - Results CT pelvis reviewed-report Consult Discharge Plan - Plan Referrals: Yovanny Briceno Jr, MD [Primary Care Provider] -
[2017-06-18] MEDS: amLODIPine 5 MG TABLET PO SCH (20:42)
[2017-06-18] MEDS: *HR* OxyCODONE/APAP 5/325 TABLET PO PRN (20:42)
[2017-06-18] MEDS: *HR* Heparin 5,000 UNIT/ML VIAL SQ SCH (20:43)
[2017-06-19] MEDS: *HR* Heparin 5,000 UNIT/ML VIAL SQ SCH ×3 (05:30→20:33)
[2017-06-19 05:49] LABS: Basophils # 0.1 K/mcL (0.0-0.2); Eosinophils # 0.3 K/mcL (0.0-0.6); Eosinophils % 3.5 %; Hematocrit 35.9 % (37.5-50.1); Immature Granulocytes % 0.4 % (0-4); Lymphocytes # 0.6 K/mcL (0.6-4.6); Lymphocytes % 7.8 %; Mean Corpuscular HGB Conc 34.3 g/dL (31.6-35.5); Mean Corpuscular Hemoglobin 31.7 pg (28.0-33.3); Mean Corpuscular Volume 92.5 fL (83.0-100.0); Mean Platelet Volume 9.4 fL (9.4-12.4); Monocytes % 14.5 %; Neutrophils # 5.2 K/mcL (1.6-8.9); Platelet Count 165 K/mcL (140-400); Red Blood Count 3.88 M/mcL (4.19-5.50); Red Cell Distribution Width 13.2 % (11.5-14.5); Segmented Neutrophils % 72.8 %
[2017-06-19 05:58] LABS: BUN/Creatinine Ratio 13 (6-26); Blood Urea Nitrogen 10 mg/dL (8-26); Calcium 9.1 mg/dL (8.6-10.8); Carbon Dioxide 24 mEq/L (19-29); Chloride 101 mEq/L (98-109); Glucose 88 mg/dL (70-99); Osmolality,Calculated 274 (280-300); Potassium 3.7 mEq/L (3.5-4.5); Sodium 133 mEq/L (136-145); eGFR For African Americans > 60 (> 60); eGFR For Non-African Americans > 60 (> 60)
[2017-06-19 06:00] LABS: Hemoglobin 12.3 g/dL (12.9-16.9)
[2017-06-19] MEDS: Folic Acid 1 MG TABLET PO SCH (07:54)
[2017-06-19] MEDS: amLODIPine 5 MG TABLET PO SCH ×2 (07:54→20:32)
[2017-06-19] MEDS: Nicotine 14 MG PATCH.TD24 TD SCH (07:56)
[2017-06-19] MEDS: *HR* OxyCODONE/APAP 5/325 TABLET PO PRN ×3 (08:13→20:32)
--- NOTE | 2017-06-19 12:14 | Internal Med Progress Note ---
<Wyatt Jarvis - Last Filed: 06/19/17 19:49> Date of Encounter: 06/19/17 Time of Encounter: 10:30 - Assessment and plan (1) Metastatic cancer to bone Current Visit: Yes Status: Acute Assessment and plan: Pathalogic fracture of L acetabulum based on CT image. Ortho presented option for surgical or conservative management. Patient opted for conservative management in order to not delay his chemotherapy treatment. Per oncology, their recommendation is that the patient proceed with total hip arthroplasty as this would be the best option to provide palliation of his pain and durability of the joint. The further stated that recovery time would be short and his chemotherapy treatment would only be minimally delayed. Per palliative care, patient is doing well with percocet for his pain. Continue percocet. (2) Left acetabular fracture Current Visit: Yes Status: Acute Assessment and plan: See plan above. Qualifiers: Encounter type: initial encounter Sublocation of acetabulum: unspecified portion of acetabulum Fracture type: closed Fracture alignment: nondisplaced Qualified Code(s): S32.402A - Unspecified fracture of left acetabulum, initial encounter for closed fracture (3) COPD (chronic obstructive pulmonary disease) Current Visit: Yes Status: Acute Assessment and plan: Reports no shortness of breath. Continue with home meds. Qualifiers: COPD type: unspecified COPD Qualified Code(s): J44.9 - Chronic obstructive pulmonary disease, unspecified (4) DVT prophylaxis Current Visit: Yes Status: Acute Assessment and plan: On heparin and SCDs. (5) Primary cancer of right lung metastatic to other site Current Visit: Yes Status: Chronic Assessment and plan: Follows Dr. Khanna as an outpatient. Had palliative radiation to his pelvis with Dr. Rico. Scheduled to start chemo this week. - Time Spent With Patient 25 - 35 minutes - Subjective Interval history: Patient is a 66 YO M with a PMH of HTN, COPD, and metastatic lung cancer that presented to the ED for increased L hip pain. He has been suffering bilateral hip pain for the past 7 weeks. He had received palliative radiation to this R hip before. Two days go, he was unable to bear any weight over his hip joint. CT of the pelvis revealed lytic lesions to the L acetabulum and fracture of the roof of the L lateral acetabulum. Patient was seen by ortho and presented with options for surgery (total hip replacement) or conservative management. Patient opted for conservative management. When seen today, the patient admits that he has difficulty with weight bearing on his L leg. He denies any chest pain, shortness of breath, fever, chills, nausea, vomiting, or abdominal pain. - Constitutional Vitals: Temp Pulse Resp BP Pulse Ox 97.9 F 83 18 143/79 97 06/19/17 11:52 06/19/17 11:52 06/19/17 11:52 06/19/17 11:52 06/19/17 11:52 General appearance: Present: A&O X 3, pleasant, no acute distress - Respiratory Respiratory exam: Present: CTAB. Absent: respiratory distress, wheezes, tachypnea - Cardiovascular Cardiovascular exam: Present: RRR, +S1, +S2. Absent: diastolic murmur, systolic murmur - GI/Abdominal GI/Abdominal exam: Present: normal bowel sounds, soft. Absent: guarding, tenderness - Extremities Exam Additional comments: 4/5 strength in the L lower extremity and 5/5 strength in the R Lower extremity. No tenderness to palpation of hip joint bilaterally. Internal Medicine: Result - Labs CBC & Chem 7: 06/19/17 04:53 06/19/17 04:53 Labs: Short CBC 06/19/17 Range/Units 04:53 WBC 7.2 (4.3-11.1) K/mcL Hgb 12.3 L D (12.9-16.9) g/dL Hct 35.9 L (37.5-50.1) % Plt Count 165 (140-400) K/mcL Neutrophils # 5.2 (1.6-8.9) K/mcL BMP 06/19/17 04:53 Sodium 133 L Potassium 3.7 Chloride 101 Carbon Dioxide 24 BUN 10 Creatinine 0.76 Glucose 88 Calcium 9.1 - VTE Documentation of Mechanical Device: Intermittent pneumatic compression device Consult Discharge Plan - Plan Referrals: Yovanny Briceno Jr, MD [Primary Care Provider] - <Nir Webb - Last Filed: 06/20/17 07:47> Date of Encounter: 06/20/17 - Constitutional Vitals: Temp Pulse Resp BP Pulse Ox 97.8 F 87 16 134/87 96 06/20/17 06:29 06/20/17 06:29 06/20/17 06:29 06/20/17 06:29 06/20/17 06:29 Internal Medicine: Result - Labs CBC & Chem 7: 06/20/17 05:29 06/20/17 05:29 Labs: Short CBC 06/20/17 Range/Units 05:29 WBC 7.6 (4.3-11.1) K/mcL Hgb 13.0 (12.9-16.9) g/dL Hct 37.7 (37.5-50.1) % Plt Count 166 (140-400) K/mcL Neutrophils # 5.9 (1.6-8.9) K/mcL BMP 06/20/17 05:29 Sodium 130 L Potassium 3.9 Chloride 96 L Carbon Dioxide 24 BUN 13 Creatinine 0.86 Glucose 92 Calcium 9.6 - Attending Attestation I have independently seen and examined this patient on 06/19/17, reviewed the EMR and discussed plan of care with the patient and resident physician 66 M. Seen and evaluated at bedside. Stage IV Lung CA with mets to the hip admitted and being managed for pathologic fracture. He is denting new complains. Surgical intervention is not patients preference at this time and he is waiting for SI brace, PT/OT eval. He is for possible radiation per Onc. Physical exam: VSS, not in distress, no neurologic deficits, speaks full sentences, CTAB, S1, S2 only, abdomen is soft and not tender. Labs and imaging reviewed Plan is to continue pain control, SW and palliative care eval. Continue current management
--- NOTE | 2017-06-19 15:25 | Palliative - Consult Note ---
Date of Encounter: 06/19/17 Time of Encounter: 14:20 - Assessment and Plan (1) Left hip pain Current Visit: Yes Status: Acute Assessment and plan: He currently is utilizing Percocet. He has only taken 2 doses over the past 24 hours. He states that he controls his pain better by positioning. States that Percocet has done well at home. states he takes approx 3 daily. Discussed that sustained released pain medication is appropriate, and discussed low dose MS Contin. However, he states that he may still be having surgery and is waiting to discuss with Dr. Khanna later today. Will continue current Percocet and monitor. (2) Advanced directives, counseling/discussion Current Visit: No Status: Acute Assessment and plan: Patient already had an advanced care planning visit with Erwin Leiva NP at oncology clinic. His POA and living will were already completed, and he has already had code status discussion. He continued to desire full code. He will have discharge needs, I will discuss with Cehvy Leon, but this may vary based on his discharge disposition, or pending any surgical procedure. Has walker, cane, and some wheeled chair they have been using as a wheelchair. Will follow. (3) Left acetabular fracture Current Visit: Yes Status: Acute Qualifiers: Encounter type: initial encounter Sublocation of acetabulum: unspecified portion of acetabulum Fracture type: closed Fracture alignment: nondisplaced Qualified Code(s): S32.402A - Unspecified fracture of left acetabulum, initial encounter for closed fracture (4) Primary cancer of right lung metastatic to other site Current Visit: Yes Status: Chronic Palliative-CN HPI - Data of Consult Consult date: 06/19/17 Requesting Physician: Maddie Abreu MD Primary Care Provider: Yovanny Briceno Jr, MD - Consult Narrative History of present illness: Mr. 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 He has received radiation to pelvic area lesions with Dr. Rod Rico, and was actually supposed to begin chemotherapy tomorrow. He had acute change in left hip pain, and was advised to come to hospital. Found to have left acetabulum fracture. Orthopedic evaluation per Dr. Silvio Alicia. Initially total hip replacement was discussed, but patient seleted conservative treatment. Now states that he is re -considering and desires to discuss with Dr. Khanna when he visits. Labs have been stable. manager terminal smoker. Upon my visit, pt is reluctant to speak with me, and believes that I am representing hospice care. I explained palliative role, and he verbalized understanding. He states that he feels his pain is adequately controlled with positioning and Percocet. He was up with walker returning from bathroom when I entered and is up in chair. is at bedside. He based most of our conversation on his role as a pathologist and his experiences. He is anxious to get chemotherapy began as soon as possible. States "I was lifting weights 4- 6 weeks ago". does verbalize difficulty managing him at home, with his decreasing mobility. states she went to [facility] and Dr. Khanna coming to see patient this evening. They have 2 children, daughter in [place], and son in [place]. Daughter traveling down tomorrow. CC: Maddie Abreu MD Past Med Surg Social Fam HX - Past Medical History Medical history: cancer (metastatic lung cancer), COPD, hypertension, other Psychiatric history: no psych history - Past Surgical History Surgical History: no surgical history, other - Social History Smoking Status: Current every day smoker Smokeless Tobacco Status: No Alcohol use: rarely Drug use: none - Family History Brother Living Status: Age at : 61 Cause of : Prostate cancer Hx Family Cancer: Yes Grandmother Living Status: Age at : 95 Hx Family Cancer: Yes Grandfather Living Status: Age at : 90 Hx Family Cancer: Yes Medications and Allergies Albuterol Sulfate [Ventolin Hfa] 2 puff IH Q4H PRN 05/23/17 [History] Umeclidinium Brm/Vilanterol Tr [Anoro Ellipta 62.5-25 Mcg INH] 1 puff IH DAILY 05/23/17 [History] amLODIPine [Norvasc] 5 mg PO BID 05/23/17 [History] OxyCODONE/APAP 5/325 [Percocet 5/325 MG] 1 tab PO Q6-8H PRN #90 06/03/17 [Rx] Folic Acid 1 mg PO DAILY #30 tablet 06/05/17 [Rx] Docusate [Colace] 100 mg PO BID 06/18/17 [History] 3 Allergy/AdvReac Type Severity Reaction Status Date / Time codeine Allergy Hives Verified 05/23/17 12:15 All systems: reviewed and no additional remarkable complaints except as stated ( hip pain with movement and ambulation, generalized weakness,) Palliative Care-Exam - Constitutional Vitals: Temp Pulse Resp BP Pulse Ox 97.9 F 83 18 143/79 97 06/19/17 11:52 06/19/17 11:52 06/19/17 11:52 06/19/17 11:52 06/19/17 11:52 General appearance: Present: no acute distress, thin - Head Head Exam: Present: normal inspection, normocephalic - Eye Eye exam: Present: normal appearance - Expanded Respiratory Exam Location: decreased breath sounds: Left, Right, Lower - Cardiovascular Cardiovascular exam: Present: +S1, +S2 - GI/Abdominal Exam GI/Abdominal exam: Present: normal bowel sounds, soft - Extremities Exam Extremities exam: Present: normal capillary refill, normal inspection - Neurological Exam Neurological exam: Present: alert, oriented X3 Additional comments: Strength equal to upper extremities. Lower extremity deferred r/t fracture. He has been up with walker. - Psychiatric Psychiatric exam: Present: flat affect - Skin Skin exam: Present: dry, warm Internal Medicine - CN: Reslt - Labs CBC & Chem 7: 06/19/17 04:53 06/19/17 04:53 Labs: Short CBC 06/19/17 Range/Units 04:53 WBC 7.2 (4.3-11.1) K/mcL Hgb 12.3 L D (12.9-16.9) g/dL Hct 35.9 L (37.5-50.1) % Plt Count 165 (140-400) K/mcL Neutrophils # 5.2 (1.6-8.9) K/mcL BMP 06/19/17 04:53 Sodium 133 L Potassium 3.7 Chloride 101 Carbon Dioxide 24 BUN 10 Creatinine 0.76 Glucose 88 Calcium 9.1 Consult Discharge Plan - Plan Referrals: Yovanny Briceno Jr, MD [Primary Care Provider] - Palliative Quality Palliative Quality: Screen for Code Status: Yes, Screen for Goals of Care: Yes, Screen for Pain: Yes, If Pain Regimen Started, Initiate Bowel Regimen: NA, Screen for Nausea/Vomitting: Yes Code Status: 06/18/17 14:10 Resuscitation Status: Active [RES] Routine Comment: Resuscitation Status: Full Code
--- NOTE | 2017-06-19 18:21 | Oncology Inp Progress Note ---
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 He has a symptomatic left acetabular fracture. I think the best plan of action would be to proceed with left total hip arthroplasty surgery. I think this will be the surest way to provide palliation of his pain and durability of the joint. I fear that he would continued to suffer and significant discomfort without this procedure. I think that this will likely hinder my ability to provide adequate oncologic care moving forward. In addition, recovery from LILLIAN is usually short and well received. I think we could proceed with chemotherapy within weeks after completion of his surgery without issue. I shared my thoughts with Dr. Alicia's team as well. If possible, they will proceed with surgery before the end of this week dependent upon Dr. Alicia scheduled. Dr. Santoyo will think about this again overnight but is leaning towards this strongly after my conversation today. His is in agreement with proceeding with surgery as well. We will continue to assist with his care through his hospital stay. If you have any concerns or questions, do not hesitate to call my cell phone [phone] Qualifiers: Encounter type: initial encounter Sublocation of acetabulum: unspecified portion of acetabulum Fracture type: closed Fracture alignment: nondisplaced Qualified Code(s): S32.402A - Unspecified fracture of left acetabulum, initial encounter for closed fracture Oncology: Subj Interval history: Natanael is still having pain about his left hip. Is chronically controlled with Percocet. He tried to stand today for a few minutes expressed significant pain with weightbearing. He met with Dr. Alicia of orthopedics and has been very indecisive with regards to pursuing hip replacement surgery for his pathologic left hip fracture. He wants know what the plan for chemotherapy will be moving forward as well. His and I did talk over the lunch hour at the cancer center as well. I have also reviewed the case with Dr. Alicia's team. - Constitutional Vitals: Vital Signs Temp Pulse Resp BP Pulse Ox 06/19/17 15:20 98.1 F 75 18 139/88 97 06/19/17 11:52 97.9 F 83 18 143/79 97 06/19/17 07:47 98.0 F 89 20 118/81 99 06/19/17 04:20 97.4 F L 68 18 154/72 97 06/18/17 23:45 97.3 F L 68 18 128/79 98 06/18/17 19:18 98.5 F 87 18 152/89 95 Intake and Output 06/19/17 06/19/17 06/20/17 08:59 16:59 00:59 Other: Weight 71.94 kg Patient Weight 06/20/17 00:59 Weight 71.94 kg - Head Head exam: Present: atraumatic, normal inspection, normocephalic - Eye Eye exam: Present: conjuntiva pink, sclera anicteric - ENT ENT exam: Present: mucous membranes moist, normal exam - Respiratory Respiratory exam: Present: decreased breath sounds, CTAB - Cardiovascular Cardiovascular exam: Present: RRR - GI/Abdominal GI/Abdominal exam: Present: normal bowel sounds, soft - Extremities Exam Extremities exam: Present: normal inspection - Neurological Exam Neurological exam: Present: alert, CN II-XII intact, oriented X3, no focal deficits Oncology: Obj Data - Labs CBC & Chem 7: 06/19/17 04:53 06/19/17 04:53 Labs: Laboratory Results - last 24 hr 06/19/17 06/19/17 04:53 04:53 WBC 7.2 RBC 3.88 L Hgb 12.3 L D Hct 35.9 L MCV 92.5 MCH 31.7 MCHC 34.3 RDW 13.2 Plt Count 165 MPV 9.4 Immature Gran % 0.4 Seg Neutrophils % 72.8 Lymphocytes % 7.8 Monocytes % 14.5 Eosinophils % 3.5 Basophils % 1.0 Neutrophils # 5.2 Lymphocytes # 0.6 Monocytes # 1.0 Eosinophils # 0.3 Basophils # 0.1 Sodium 133 L Potassium 3.7 Chloride 101 Carbon Dioxide 24 BUN 10 Creatinine 0.76 Est GFR ( Amer) > 60 Est GFR (Non-Af Amer) > 60 BUN/Creatinine Ratio 13 Glucose 88 Calculated Osmolality 274 L Calcium 9.1 Consult Discharge Plan - Plan Referrals: Yovanny Briceno Jr, MD [Primary Care Provider] -
[2017-06-20] MEDS: *HR* OxyCODONE/APAP 5/325 TABLET PO PRN ×3 (03:24→20:13)
[2017-06-20 05:59] LABS: Basophils # 0.1 K/mcL (0.0-0.2); Basophils % 0.8 %; Eosinophils # 0.3 K/mcL (0.0-0.6); Eosinophils % 3.4 %; Hematocrit 37.7 % (37.5-50.1); Immature Granulocytes % 0.4 % (0-4); Lymphocytes # 0.5 K/mcL (0.6-4.6); Lymphocytes % 6.8 %; Mean Corpuscular HGB Conc 34.5 g/dL (31.6-35.5); Mean Corpuscular Hemoglobin 32.5 pg (28.0-33.3); Mean Corpuscular Volume 94.3 fL (83.0-100.0); Mean Platelet Volume 9.2 fL (9.4-12.4); Monocytes # 0.9 K/mcL (0.0-1.3); Monocytes % 11.9 %; Neutrophils # 5.9 K/mcL (1.6-8.9); Platelet Count 166 K/mcL (140-400); Red Cell Distribution Width 13.2 % (11.5-14.5); Segmented Neutrophils % 76.7 %
[2017-06-20 06:14] LABS: BUN/Creatinine Ratio 15 (6-26); Blood Urea Nitrogen 13 mg/dL (8-26); Calcium 9.6 mg/dL (8.6-10.8); Carbon Dioxide 24 mEq/L (19-29); Chloride 96 mEq/L (98-109); Glucose 92 mg/dL (70-99); Osmolality,Calculated 270 (280-300); Potassium 3.9 mEq/L (3.5-4.5); Sodium 130 mEq/L (136-145); eGFR For African Americans > 60 (> 60); eGFR For Non-African Americans > 60 (> 60)
[2017-06-20] MEDS: *HR* Heparin 5,000 UNIT/ML VIAL SQ SCH ×3 (06:23→22:18)
--- NOTE | 2017-06-20 06:54 | Orthopedics Progress Note ---
Date of Encounter: 06/20/17 Time of Encounter: 06:52 Subjective Interval history: Patient seen this morning history of metastatic lung cancer with acetabular metastases with fracture of dome. Initially patient was thinking conservative management pain has been too significant unable to weight-bear affecting his quality of life. Patient spoke with his oncologist and change his mind to have surgical procedure. I reviewed the CAT scan and believe that he would benefit from a left total hip replacement to relieve his pain. I discussed this with him discussed risks benefits as well as recovery if the surgery was uneventful. The potential complications associated with the metastatic lesion and his recent radiation and chemotherapy. Patient was to like to proceed with hip replacement surgery. This will be scheduled for tomorrow. Objective Vital signs: Vital Signs Temp Pulse Resp BP Pulse Ox 06/20/17 00:43 97.6 F 81 17 138/89 97 06/19/17 21:33 98.4 F 86 20 137/87 96 06/19/17 15:20 98.1 F 75 18 139/88 97 06/19/17 11:52 97.9 F 83 18 143/79 97 06/19/17 07:47 98.0 F 89 20 118/81 99 Intake and Output 06/19/17 06/19/17 06/20/17 15:59 23:59 07:59 Intake Total 500 / 500 Balance 500 / 500 Intake: Oral 500 / 500 Other: # Voids 1 2 - Labs CBC & BMP: 06/20/17 05:29 06/20/17 05:29 Labs: Abnormal lab results RBC 4.00 M/mcL (4.19-5.50) L 06/20/17 05:29 MPV 9.2 fL (9.4-12.4) L 06/20/17 05:29 Lymphocytes # 0.5 K/mcL (0.6-4.6) L 06/20/17 05:29 ESR 61 mm/hr (0-10) H 06/18/17 09:19 Sodium 130 mEq/L (136-145) L 06/20/17 05:29 Chloride 96 mEq/L (98-109) L 06/20/17 05:29 Calculated Osmolality 270 (280-300) L 06/20/17 05:29 Alkaline Phosphatase 155 Units/L (38-126) H 06/18/17 09:19 C-Reactive Protein 35 mg/L (Less than 5) H 06/18/17 09:19 Globulin 3.9 g/dL (2.4-3.5) H 06/18/17 09:19 Albumin/Globulin Ratio 0.9 (1.1-2.2) L 06/18/17 09:19 - VTE Documentation of Mechanical Device: Intermittent pneumatic compression device Consult Discharge Plan - Plan Referrals: Yovanny Briceno Jr, MD [Primary Care Provider] -
[2017-06-20] MEDS: amLODIPine 5 MG TABLET PO SCH ×2 (08:49→20:13)
[2017-06-20] MEDS: Nicotine 14 MG PATCH.TD24 TD SCH (08:49)
[2017-06-20] MEDS: Folic Acid 1 MG TABLET PO SCH (08:49)
--- NOTE | 2017-06-20 10:50 | Internal Med Progress Note ---
<Wyatt Jarvis - Last Filed: 06/20/17 13:28> Date of Encounter: 06/20/17 Time of Encounter: 10:30 - Assessment and plan (1) Pre-op evaluation Current Visit: Yes Status: Acute Assessment and plan: Patient's revised cardiac index score is 0 based on the fact that hip arthroplasty is not a high risk surgery, patient has no history of ischemic heart disease, no history of CHF, no history of CVA, not on insulin, and creatinine is below 2. Patient is in a low risk category for a low risk surgical procedure. 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 Ortho presented option for surgical or conservative management. Patient opted for conservative management in order to not delay his chemotherapy treatment. Per oncology, their recommendation is that the patient proceed with total hip arthroplasty as this would be the best option to provide palliation of his pain and durability of the joint. They further stated that recovery time would be short and his chemotherapy treatment would only be minimally delayed. Patient has decided to proceed with the surgery. Continue percocet. (3) Left acetabular fracture Current Visit: Yes Status: Acute Assessment and plan: See plan above. Qualifiers: Encounter type: initial encounter Sublocation of acetabulum: unspecified portion of acetabulum Fracture type: closed Fracture alignment: nondisplaced Qualified Code(s): S32.402A - Unspecified fracture of left acetabulum, initial encounter for closed fracture (4) COPD (chronic obstructive pulmonary disease) Current Visit: Yes Status: Acute Assessment and plan: Reports no shortness of breath. Continue with home meds. Qualifiers: COPD type: unspecified COPD Qualified Code(s): J44.9 - Chronic obstructive pulmonary disease, unspecified (5) DVT prophylaxis Current Visit: Yes Status: Acute Assessment and plan: On heparin and SCDs. (6) Primary cancer of right lung metastatic to other site Current Visit: Yes Status: Chronic Assessment and plan: Follows Dr. Khanna as an outpatient. Had palliative radiation to his pelvis with Dr. Rico. Patient has opted for hip replacement surgery tomorrow. Patient plans to resume chemotherapy afterwards as soon as appropriate medically. - Subjective Interval history: Patient is a 66 YO M with a PMH of HTN, COPD, and metastatic lung cancer that presented to the ED for increased L hip pain. He has been suffering bilateral hip pain for the past 7 weeks. He had received palliative radiation to this R hip before. Two days go, he was unable to bear any weight over his hip joint. CT of the pelvis revealed lytic lesions to the L acetabulum and fracture of the roof of the L lateral acetabulum. Patient was seen by ortho and presented with options for surgery (total hip replacement) or conservative management. Patient opted for conservative management initially, but he has now opted to undergo hip replacement surgery, scheduled for tomorrow. When seen today, the patient admits that he has difficulty with weight bearing on his L leg. He denies any chest pain, shortness of breath, fever, chills, nausea, vomiting, or abdominal pain. - Constitutional Vitals: Temp Pulse Resp BP Pulse Ox 97.8 F 87 16 134/87 96 06/20/17 06:29 06/20/17 06:06/20/17 06:06/20/17 06:06/20/17 06:29 General appearance: Present: A&O X 3, pleasant, no acute distress - Respiratory Respiratory exam: Present: CTAB. Absent: respiratory distress, wheezes, tachypnea - Cardiovascular Cardiovascular exam: Present: RRR, +S1, +S2. Absent: diastolic murmur, systolic murmur, tachycardia - GI/Abdominal GI/Abdominal exam: Present: normal bowel sounds, soft. Absent: guarding, tenderness - Extremities Exam Extremities exam: Present: radial pulses palpable and symmetrical. Absent: pedal edema Additional comments: Patient exhibits 5/5 strength test in the R let and 4/5 strength in the L leg. No tenderness to palpation of hip joint bilaterally. Internal Medicine: Result - Labs CBC & Chem 7: 06/20/17 05:06/20/17 05:29 Labs: Short CBC 06/20/17 Range/Units 05:29 WBC 7.6 (4.3-11.1) K/mcL Hgb 13.0 (12.9-16.9) g/dL Hct 37.7 (37.5-50.1) % Plt Count 166 (140-400) K/mcL Neutrophils # 5.9 (1.6-8.9) K/mcL BMP 06/20/17 05:29 Sodium 130 L Potassium 3.9 Chloride 96 L Carbon Dioxide 24 BUN 13 Creatinine 0.86 Glucose 92 Calcium 9.6 - VTE Documentation of Mechanical Device: Intermittent pneumatic compression device Consult Discharge Plan - Plan Referrals: Yovanny Briceno Jr, MD [Primary Care Provider] - <Nir Webb - Last Filed: 06/20/17 14:41> Date of Encounter: 06/20/17 - Constitutional Vitals: Temp Pulse Resp BP Pulse Ox 98 F 94 16 138/83 95 06/20/17 10:32 06/20/17 10:32 06/20/17 10:32 06/20/17 10:32 06/20/17 10:32 Internal Medicine: Result - Labs CBC & Chem 7: 06/20/17 05:29 06/20/17 05:29 - Attending Attestation I have independently seen and examined this patient on 06/20/17, reviewed the EMR and discussed plan of care with the patient and resident physician 66 M. Seen and evaluated at bedside. Stage IV Lung CA with mets to the hip admitted and being managed for pathologic fracture. He is denting new complains. After discussion with Ortho , he has decided on L hip arthroplasty He denies prior GA exposure, no family hx of malignant hyperhermia, no chest pain or cariac symptoms, he does have a history of heavy smoking. Physical exam: VSS, not in distress, no neurologic deficits, speaks full sentences, CTAB, S1, S2 only, abdomen is soft and not tender. Labs and imaging reviewed: Stable Patient is low risk for low to medium risk surgery NPO from [place] DVT prophylaixs Discharge disposition depends on clinical outcome Plan is to continue pain control, SW and palliative care eval. Continue current management
--- NOTE | 2017-06-20 12:30 | Event Note ---
Date of Encounter: 06/20/17 Time of Encounter: 11:00 Patient doing well, up in chair. No family present. He is comfortable and Percocet managing pain. After consultation with oncology/ortho, pt now scheduled for total hip replacement tomorrow. spool worker Chevy Leon working with patient for discharge plan. Advanced directives are done, and code status is full. Palliative will sign off. Please call if needed.
--- NOTE | 2017-06-20 18:22 | Oncology Inp Progress Note ---
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 Will hopefully require minimal rehab as to expedite moving towards palliative chemotherapy. I will set up an appointment after d/c to finalize treatment planning. We will continue to assist with his care through his hospital stay. If you have any concerns or questions, do not hesitate to call my cell phone [phone] Qualifiers: Encounter type: initial encounter Sublocation of acetabulum: unspecified portion of acetabulum Fracture type: closed Fracture alignment: nondisplaced Qualified Code(s): S32.402A - Unspecified fracture of left acetabulum, initial encounter for closed fracture Oncology: Subj Interval history: Worked with PT today. Difficulty with pain during these exercises. Has agreed to surgery which is planned for tomorrow. Besides left hip, no other pain. Breathing well. Eating very well. - Constitutional Vitals: Vital Signs Temp Pulse Resp BP Pulse Ox 06/20/17 14:51 98.3 F 97 16 134/78 94 Intake and Output 06/20/17 06/20/17 06/21/17 08:59 16:59 00:59 Intake Total 450 / 450 Output Total 600 / 600 Balance -150 / -150 Intake: Oral 450 / 450 Output: Urine 600 / 600 Other: Meal Lunch Percent of Meal Consumed 90% - Head Head exam: Present: atraumatic, normal inspection, normocephalic - Eye Eye exam: Present: EOMI, normal appearance, conjuntiva pink, sclera anicteric - ENT ENT exam: Present: mucous membranes moist, normal exam, normal oropharynx - Respiratory Respiratory exam: Present: decreased breath sounds - Cardiovascular Cardiovascular exam: Present: RRR - GI/Abdominal GI/Abdominal exam: Present: normal bowel sounds, soft - Extremities Exam Extremities exam: Present: normal inspection - Neurological Exam Neurological exam: Present: alert, CN II-XII intact, oriented X3 Oncology: Obj Data - Labs CBC & Chem 7: 06/20/17 05:29 06/20/17 05:29 Consult Discharge Plan - Plan Referrals: Yovanny Briceno Jr, MD [Primary Care Provider] -
--- NOTE | 2017-06-20 19:35 | Anesthesia Evaluation PreOp ---
Date of Encounter: 06/20/17 Time of Encounter: 19:15 - Past History Planned Operation: Left Total Hip Replacement Cardiac History: HTN, Hyperlipidemia Pulmonary History: Smoker, COPD, Other (Metastatic Lung Cancer...palliative radiation therapy to Left Hip) SENIOR IT ENGINEER History: Denies Any Significant HX Other Medical History: Denies Any Significant HX Anesthesia History: No Prior Anesthetic Complications, Past Anesthesia (Bronch easy intubation MAC 4 blade 8.5 ETT) Alcohol Use: rarely Drug use: none Medications and Allergies Albuterol Sulfate [Ventolin Hfa] 2 puff IH Q4H PRN 05/23/17 [History] Umeclidinium Brm/Vilanterol Tr [Anoro Ellipta 62.5-25 Mcg INH] 1 puff IH DAILY 05/23/17 [History] amLODIPine [Norvasc] 5 mg PO BID 05/23/17 [History] OxyCODONE/APAP 5/325 [Percocet 5/325 MG] 1 tab PO Q6-8H PRN #90 06/03/17 [Rx] Folic Acid 1 mg PO DAILY #30 tablet 06/05/17 [Rx] Docusate [Colace] 100 mg PO BID 06/18/17 [History] 3 Allergy/AdvReac Type Severity Reaction Status Date / Time codeine Allergy Hives Verified 05/23/17 12:15 - Meds/Allergy Pre-op Review Medications Reviewed: Yes Allergies Reviewed: Yes Beta Blockers on Current Med List: No Anesthesia Results - Labs 06/20/17 05:29 06/20/17 05:29 - Imaging EKG: report reviewed (SR) Anesthesia Exam O2 Sat O2 Sat by Pulse Oximetry 94 O2 Sat by Pulse Oximetry 95 O2 Sat by Pulse Oximetry 96 O2 Sat by Pulse Oximetry 97 O2 Sat by Pulse Oximetry 96 Vital Signs Temp Pulse Resp BP Pulse Ox 98.5 F 99 15 174/108 93 06/18/17 09:05 06/18/17 09:05 06/18/17 09:05 06/18/17 09:05 06/18/17 09:05 Height: 6'0 Weight: 158 lbs NPO (# of Hours): [place] Pain Scale: 1 - HEENT Pupil (Motor): Pupils equal, EOMI Mallampati: II Teeth: Normal Oral Opening: Greater than 3 - SENIOR IT ENGINEER LOC: Oriented SENIOR IT ENGINEER Motor: Normal RUE, Normal LUE, Normal RLE, Normal LLE, Normal Face SENIOR IT ENGINEER Sensory: Normal: RUE, LUE, RLE, LLE, Face - Cardiac Rhythm: Regular Murmur: None JVD: No Carotid Bruit: No - Pulmonary Breath Sounds: bilateral Clear Respiratory Effort: Symmetrical Anesthesia Assess/Plan ASA Score: 3 (HTN COPD) Modified Oblong Scale for Level of Consciousness: Cooperative, oriented, and tranquil Anesthetic Plan: General Monitoring Plan: Standard Monitors Recovery Plan: PACU (Discussed GA versus RA, patient had GA recently, prefers GA , agrees to proceed)
[2017-06-21 04:36] LABS: Basophils % 0.5 %; Eosinophils # 0.3 K/mcL (0.0-0.6); Eosinophils % 3.7 %; Hematocrit 33.9 % (37.5-50.1); Hemoglobin 11.8 g/dL (12.9-16.9); Immature Granulocytes % 0.3 % (0-4); Lymphocytes # 0.6 K/mcL (0.6-4.6); Lymphocytes % 7.7 %; Mean Corpuscular HGB Conc 34.8 g/dL (31.6-35.5); Mean Corpuscular Hemoglobin 32.2 pg (28.0-33.3); Mean Corpuscular Volume 92.6 fL (83.0-100.0); Mean Platelet Volume 9.3 fL (9.4-12.4); Monocytes % 13.7 %; Neutrophils # 5.4 K/mcL (1.6-8.9); Platelet Count 148 K/mcL (140-400); Red Blood Count 3.66 M/mcL (4.19-5.50); Red Cell Distribution Width 12.9 % (11.5-14.5); Segmented Neutrophils % 74.1 %
[2017-06-21] MEDS: *HR* Heparin 5,000 UNIT/ML VIAL SQ SCH ×2 (04:50→11:45)
[2017-06-21 04:53] LABS: BUN/Creatinine Ratio 14 (6-26); Blood Urea Nitrogen 11 mg/dL (8-26); Carbon Dioxide 26 mEq/L (19-29); Chloride 97 mEq/L (98-109); Glucose 91 mg/dL (70-99); Magnesium 1.6 mg/dL (1.6-2.6); Osmolality,Calculated 269 (280-300); Potassium 3.9 mEq/L (3.5-4.5); Sodium 130 mEq/L (136-145); eGFR For African Americans > 60 (> 60); eGFR For Non-African Americans > 60 (> 60)
[2017-06-21] MEDS: Nicotine 14 MG PATCH.TD24 TD SCH (07:29)
--- NOTE | 2017-06-21 08:13 | Orthopedics Progress Note ---
Date of Encounter: 06/21/17 Time of Encounter: 08:13 Subjective Interval history: Patient seen this morning surgical plan reviewed all questions answered. Patient in significant discomfort Objective Vital signs: Vital Signs Temp Pulse Resp BP Pulse Ox 06/21/17 05:36 97.4 F L 88 16 124/79 98 06/21/17 02:03 97.8 F 86 14 140/84 99 06/20/17 21:05 98.0 F 81 16 132/87 97 06/20/17 14:51 98.3 F 97 16 134/78 94 - Labs CBC & BMP: 06/21/17 04:07 06/21/17 04:07 Labs: Abnormal lab results RBC 3.66 M/mcL (4.19-5.50) L 06/21/17 04:07 Hgb 11.8 g/dL (12.9-16.9) L 06/21/17 04:07 Hct 33.9 % (37.5-50.1) L 06/21/17 04:07 MPV 9.3 fL (9.4-12.4) L 06/21/17 04:07 ESR 61 mm/hr (0-10) H 06/18/17 09:19 Sodium 130 mEq/L (136-145) L 06/21/17 04:07 Chloride 97 mEq/L (98-109) L 06/21/17 04:07 Calculated Osmolality 269 (280-300) L 06/21/17 04:07 Alkaline Phosphatase 155 Units/L (38-126) H 06/18/17 09:19 C-Reactive Protein 35 mg/L (Less than 5) H 06/18/17 09:19 Globulin 3.9 g/dL (2.4-3.5) H 06/18/17 09:19 Albumin/Globulin Ratio 0.9 (1.1-2.2) L 06/18/17 09:19 - VTE Documentation of Mechanical Device: Intermittent pneumatic compression device Consult Discharge Plan - Plan Referrals: Yovanny Briceno Jr, MD [Primary Care Provider] -
[2017-06-21] MEDS: amLODIPine 5 MG TABLET PO SCH (08:43)
[2017-06-21] MEDS: Folic Acid 1 MG TABLET PO SCH (08:43)
--- NOTE | 2017-06-21 10:26 | Internal Med Progress Note ---
<Wyatt Jarvis - Last Filed: 06/21/17 12:39> Date of Encounter: 06/21/17 Time of Encounter: 10:00 - Assessment and plan (1) Pre-op evaluation Current Visit: Yes Status: Acute Assessment and plan: Patient's revised cardiac index score is 0 based on the fact that hip arthroplasty is not a high risk surgery, patient has no history of ischemic heart disease, no history of CHF, no history of CVA, not on insulin, and creatinine is below 2. Patient is in a low risk category for a low risk surgical procedure. 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 Ortho presented option for surgical or conservative management. Patient opted for conservative management in order to not delay his chemotherapy treatment. Per oncology, their recommendation is that the patient proceed with total hip arthroplasty as this would be the best option to provide palliation of his pain and durability of the joint. They further stated that recovery time would be short and his chemotherapy treatment would only be minimally delayed. Patient to proceed with the surgery. Continue percocet. (3) Left acetabular fracture Current Visit: Yes Status: Acute Assessment and plan: See plan above. Qualifiers: Encounter type: initial encounter Sublocation of acetabulum: unspecified portion of acetabulum Fracture type: closed Fracture alignment: nondisplaced Qualified Code(s): S32.402A - Unspecified fracture of left acetabulum, initial encounter for closed fracture (4) COPD (chronic obstructive pulmonary disease) Current Visit: Yes Status: Acute Assessment and plan: Reports no shortness of breath. Continue with home meds. Qualifiers: COPD type: unspecified COPD Qualified Code(s): J44.9 - Chronic obstructive pulmonary disease, unspecified (5) DVT prophylaxis Current Visit: Yes Status: Acute Assessment and plan: On heparin and SCDs. (6) Primary cancer of right lung metastatic to other site Current Visit: Yes Status: Chronic Assessment and plan: Follows Dr. Khanna as an outpatient. Had palliative radiation to his pelvis with Dr. Rico. Patient has opted for hip replacement surgery tomorrow. Patient plans to resume chemotherapy afterwards as soon as appropriate medically. - Time Spent With Patient less than 15 minutes - Subjective Interval history: Patient is a 66 YO M with a PMH of HTN, COPD, and metastatic lung cancer that presented to the ED for increased L hip pain. He has been suffering bilateral hip pain for the past 7 weeks. He had received palliative radiation to this R hip before. Two days go, he was unable to bear any weight over his hip joint. CT of the pelvis revealed lytic lesions to the L acetabulum and fracture of the roof of the L lateral acetabulum. Patient was seen by ortho and presented with options for surgery (total hip replacement) or conservative management. Patient opted for conservative management initially, but he has now opted to undergo hip replacement surgery, scheduled for today. When seen today, patient seemed more mobile today, stating that he is able to walk around with his walker with minimal stiffness of his L hip. He denies any headaches, dizziness, chest pain, shortness of breath, nausea, vomiting, constipation, diarrhea, light-headedness , or syncope. - Constitutional Vitals: Temp Pulse Resp BP Pulse Ox 97.4 F L 88 16 124/79 98 06/21/17 05:36 06/21/17 05:36 06/21/17 05:36 06/21/17 05:36 06/21/17 05:36 General appearance: Present: cachectic, A&O X 3, pleasant, no acute distress - Respiratory Respiratory exam: Present: CTAB. Absent: respiratory distress, rhonchi, wheezes , tachypnea - Cardiovascular Cardiovascular exam: Present: RRR, +S1, +S2. Absent: diastolic murmur, systolic murmur - GI/Abdominal GI/Abdominal exam: Present: normal bowel sounds, soft. Absent: guarding, rebound, tenderness - Extremities Exam Extremities exam: Present: radial pulses palpable and symmetrical. Absent: pedal edema, tenderness Additional comments: 5/5 strength testing in lower extremities bilaterally. Sensations intact in lower extremities bilaterally. Pedal pulses intact bilaterally. Internal Medicine: Result - Labs CBC & Chem 7: 06/21/17 04:07 06/21/17 04:07 Labs: Short CBC 06/21/17 Range/Units 04:07 WBC 7.3 (4.3-11.1) K/mcL Hgb 11.8 L (12.9-16.9) g/dL Hct 33.9 L (37.5-50.1) % Plt Count 148 (140-400) K/mcL Neutrophils # 5.4 (1.6-8.9) K/mcL [facility] 06/21/17 04:07 Sodium 130 L Potassium 3.9 Chloride 97 L Carbon Dioxide 26 BUN 11 Creatinine 0.76 Glucose 91 Calcium 9.0 - VTE Documentation of Mechanical Device: Intermittent pneumatic compression device Consult Discharge Plan - Plan Referrals: Yovanny Briceno Jr, MD [Primary Care Provider] - <Nir Webb - Last Filed: 06/21/17 13:08> Date of Encounter: 06/21/17 - Constitutional Vitals: Temp Pulse Resp BP Pulse Ox 97.8 F 86 17 139/85 97 06/21/17 11:52 06/21/17 11:52 06/21/17 11:52 06/21/17 11:52 06/21/17 11:52 Internal Medicine: Result - Labs CBC & Chem 7: 06/21/17 04:07 06/21/17 04:07 Labs: Short CBC 06/21/17 Range/Units 04:07 WBC 7.3 (4.3-11.1) K/mcL Hgb 11.8 L (12.9-16.9) g/dL Hct 33.9 L (37.5-50.1) % Plt Count 148 (140-400) K/mcL Neutrophils # 5.4 (1.6-8.9) K/mcL [facility] 06/21/17 04:07 Sodium 130 L Potassium 3.9 Chloride 97 L Carbon Dioxide 26 BUN 11 Creatinine 0.76 Glucose 91 Calcium 9.0 - Attending Attestation I have independently seen and examined this patient on 06/21/17, reviewed the EMR and discussed plan of care with the patient and resident physician 66 M. Seen and evaluated at bedside. Stage IV Lung CA with mets to the hip admitted and being managed for pathologic fracture. He is denting new complains. He is awaiting surgery this afternoon He is seen at the bedside with his and daughter. He states his pain is well controlled and he has no wheezing. He denies new complains Physical exam: VSS, not in distress, no neurologic deficits, speaks full sentences, CTAB, S1, S2 only, abdomen is soft and not tender. Labs and imaging reviewed: Stable A/P: Stage IV Lung CA with bone mets, pathologic fracture and COPD. For surgery today Continue current management Rest of details as in resident physician's documentation
--- NOTE | 2017-06-21 12:37 | Event Note ---
Date of Encounter: 06/21/17 Time of Encounter: 12:20 Patient scheduled for THR today with Dr. Alicia. Nursing informed me he has not yet taken his pre-surgical bath. Discussed this with patient and he states he is now ready for this. SLAT TWISTER/Nurse informed. He states his pain is presently well controlled. He states he has been NPO since last night. He admits concern regarding his IV site to left arm. Inspected - in place and sealed though proximal to IV dull erythema appx [id number] noted however not warm to touch or tender per patient. Informed nursing.
[2017-06-21] MEDS ORDERED: Lidocaine -MPF 4% 5 ML AMPUL ONE (14:38)
[2017-06-21] MEDS ORDERED: *HR* FentaNYL (PF) 100 MCG/2 ML VIAL ONE ×3 (14:38→16:15)
[2017-06-21] MEDS ORDERED: Ondansetron 4 MG/2 ML VIAL ONE (14:38)
[2017-06-21] MEDS ORDERED: *HR* Succinylcholine 200 MG/10 ML VIAL IVP ONE (14:38)
[2017-06-21] MEDS ORDERED: *HR* Propofol 200 MG/20 ML VIAL IVP ONE (14:38)
[2017-06-21] MEDS ORDERED: Dexamethasone 4 MG/ML VIAL ONE ×2 (14:38→16:06)
[2017-06-21] MEDS ORDERED: *HR* Midazolam HCl 2 MG/2 ML VIAL ONE (14:38)
[2017-06-21] MEDS ORDERED: Lidocaine -MPF 2% 2 ML VIAL ONE (14:39)
[2017-06-21] MEDS ORDERED: *HR* Meperidine 25 MG/ML SYRINGE IVP PRN ×2 (15:28→18:21)
[2017-06-21] MEDS ORDERED: Ondansetron 4 MG/2 ML VIAL IVP ONE ×2 (15:28→18:21)
[2017-06-21] MEDS ORDERED: Dexamethasone 4 MG/ML VIAL IVP ONE ×2 (15:28→18:21)
[2017-06-21] MEDS ORDERED: Ketorolac 15 MG/ML VIAL IVP ONE ×2 (15:28→18:21)
[2017-06-21] MEDS ORDERED: *HR* Labetalol 20 MG/4 ML SYRINGE IVP PRN ×2 (15:28→18:21)
[2017-06-21] MEDS ORDERED: *HR* Promethazine 25 MG/ML VIAL IVP PRN ×2 (15:28→18:21)
--- NOTE | 2017-06-21 15:47 | Electrocardiograph Report ---
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
[2017-06-21] MEDS ORDERED: *HR* HYDROmorphone 2 MG/ML SYRINGE ONE (16:17)
--- NOTE | 2017-06-21 17:02 | Orthopedic Operative Note ---
Date of procedure: 06/21/17 Pre-op diagnosis: Metastatic disease left acetabulum with pathologic fracture Post-op diagnosis: same Procedure: Procedure: Left Total Hip Replacment Estimated blood loss: 400 cc Hardware: Metal and polyethylene replacement. Biomet DM Cup: 60 G7 fin cup Femoral size13 echo full profile lateralized stem Head: 12 head with Vandana Procedural Notes: Patient with abnormal tissue in the central portion of acetabulum. Operative procedure: The patient was brought to the operating room and placed on the operating room table. After general anesthesia was administered the patient was placed in the lateral decubitus position with the operative leg up. All pressure points were padded appropriately and the head was stabilized in the neutral position. The operative extremity was prepped and draped in the sterile surgical fashion patient received IV antibiotic prior to skin incision. A standard posterior approach is made to the operative hip, the incision was made through the skin and subcutaneous tissue hemostasis was obtained with Bovie cautery. Using careful sharp dissection the fascia was identified and incised exposing the external rotators. The external rotators were released off the greater trochanter and tagged with #2 FiberWire suture. The capsule was T'd open and the hip was brought into internal rotation and dislocated. The femoral neck cut was made at the appropriate level. An anterior capsulotomy was performed for the anterior retractor. Soft tissues removed from the acetabulum. Patient noted to have abnormal soft tissue in the central portion of the acetabulum. Acetabulum was first reamed medially, and then reamed in 15 degrees of anteversion and 45 degrees off the horizontal. It was reamed up to the appropriate size 60, care was taken not to ream to medial to avoid entering the fracture area. The appropriate-sized 60 acetabular cup was impacted in place in 15 degrees of anteversion and 45 degrees off the horizontal. This had good fit and fixation. The hip was brought back in to internal rotation and prepared with the card boxer followed by the canal finder followed by broaching process in 20 degrees anteversion. It was broached up to the appropriate size 13. The femoral implant was impacted in place in 20 degrees of anteversion. Trial reduction found the hip to be stable with 12 head and Vandana. The trials were removed and the real implants were impacted in place. The hip was reduced, patient had apparent equal leg lengths. The hip had excellent stability with forward flexion to 90 degrees adduction of 30 degrees and internal rotation of 60 degrees. The hip had no shuck. The hips after 2 minutes with a Betadine saline solution. It was irrigated out with 2 L of pulse irrigation. Fascia was closed with a running #2 PDS suture. The deep tissue was irrigated and closed deep with #1 PDS suture superficially with 0 PDS suture and skin was closed with Dermabond and skin blake. The patient was placed in a sterile dressing and abduction pillow. The patient was extubated and transferred to the recovery room in stable condition. Anesthesia: GETA Surgeon: Silvio Alicia Condition: stable Disposition: PACU
[2017-06-21] MEDS ORDERED: Acetaminophen IV 1,000 MG/100 ML INFUS..BTL ONE (17:16)
[2017-06-21] MEDS: *HR* HYDROmorphone (PF) 1 MG/ML SYRINGE IVP PRN ×4 (17:20→17:40)
[2017-06-21] MEDS ORDERED: Acetaminophen IV 1,000 MG/100 ML INFUS..BTL IVPB ONE (17:50)
[2017-06-21 17:54] LABS: Hematocrit 35.3 % (37.5-50.1); Hemoglobin 11.9 g/dL (12.9-16.9)
--- NOTE | 2017-06-21 18:00 | Anesthesia Evaluation Post Op ---
Date of Encounter: 06/21/17 Time of Encounter: 18:00 - Vital Signs Vital Signs: Vital Signs/O2 Sat, Most Current Temp Pulse Resp BP Pulse Ox 97.3 F L 100 16 158/89 98 06/21/17 17:36 06/21/17 17:47 06/21/17 17:47 06/21/17 17:47 06/21/17 17:47 - Lungs Lungs: Clear Ascult./Percussion - Airway Airway: Non-obstructed - Cardiovascular Regular Rate - Mental Status Mental Status: Asleep with brisk response to light stimulation - Pain Pain Scale: 5 Pain Scale used: Numeric (1 - 10) - Nausea Vomiting Nausea Vomiting: Not Present - Hydration Hydration: NPO, Has not voided - Discharge PostOp Status: Transfer Patient to floor
[2017-06-21] MEDS ORDERED: *HR* HYDROmorphone (PF) 1 MG/ML SYRINGE IVP PRN (18:21)
[2017-06-21] MEDS ORDERED: MOM Conc 10 ML UD.LIQ PO PRN (18:21)
[2017-06-21] MEDS ORDERED: Ondansetron 4 MG/2 ML VIAL IVP PRN (18:21)
[2017-06-21] MEDS ORDERED: Naloxone 0.4 MG/ML INJ IVP PRN (18:21)
[2017-06-21] MEDS ORDERED: Acetaminophen 325 MG TABLET PO PRN (18:21)
[2017-06-21] MEDS ORDERED: ceFAZolin 2,000 MG in D5% in Water 100 ML IVPB SCH (18:21)
[2017-06-21] MEDS ORDERED: Ringers Solution, Lactated 1,000 ML IVC SCH (18:21)
[2017-06-21] MEDS: *HR* Morphine 2 MG/ML SYRINGE IVP PRN (18:48)
[2017-06-21] MEDS: Ascorbic Acid 500 MG TABLET PO SCH (18:50)
[2017-06-21] MEDS ORDERED: Sennosides 8.6 MG TABLET PO PRN (21:00)
[2017-06-21] MEDS ORDERED: Temazepam 15 MG CAPSULE PO PRN (21:00)
[2017-06-22] MEDS: *HR* Heparin 5,000 UNIT/ML VIAL SQ SCH ×4 (00:25→22:23)
[2017-06-22] MEDS: amLODIPine 5 MG TABLET PO SCH ×3 (00:25→22:22)
[2017-06-22] MEDS: *HR* OxyCODONE/APAP 5/325 TABLET PO PRN ×4 (00:45→22:56)
[2017-06-22] MEDS: ceFAZolin 2,000 MG in D5% in Water 100 ML IVPB SCH ×2 (01:32→09:54)
[2017-06-22 04:45] LABS: Hematocrit 29.9 % (37.5-50.1); Hemoglobin 10.4 g/dL (12.9-16.9)
[2017-06-22] MEDS: Ascorbic Acid 500 MG TABLET PO SCH ×2 (06:54→16:50)
--- NOTE | 2017-06-22 07:33 | Orthopedics Progress Note ---
Date of Encounter: 06/22/17 Time of Encounter: 07:32 Subjective Interval history: Patient was seen this morning doing well without complaints. Afebrile vital signs stable. Operative extremity: Neurovascularly intact Dressing clean dry and intact Calves nontender Assessment and plan: Continue with postoperative care hemoglobin 10.4 Objective Vital signs: Vital Signs Temp Pulse Resp BP Pulse Ox 06/22/17 07:01 98.4 F 79 16 127/81 98 06/22/17 04:24 98.2 F 77 16 129/79 99 06/21/17 21:05 98.1 F 74 16 128/70 95 06/21/17 20:05 97.9 F 76 16 135/78 95 06/21/17 18:40 104 18 162/92 96 06/21/17 18:10 102 18 158/92 96 06/21/17 17:56 97.7 F 85 18 164/92 98 06/21/17 17:47 100 16 158/89 98 06/21/17 17:36 97.3 F L 103 20 172/97 95 06/21/17 17:26 108 20 154/92 96 06/21/17 17:16 110 14 160/99 96 06/21/17 17:06 98.0 F 80 16 150/88 98 06/21/17 14:22 81 137/86 100 06/21/17 11:52 97.8 F 86 17 139/85 97 Intake and Output 06/21/17 06/21/17 06/22/17 15:59 23:59 07:59 Intake Total 0 / 0 Output Total 1050 / 1050 Balance -1050 / -1050 Intake: Oral 0 / 0 Output: Urine 650 / 650 Estimated Blood Loss 400 / 400 - Labs CBC & BMP: 06/22/17 03:46 06/21/17 04:07 Labs: Abnormal lab results RBC 3.66 M/mcL (4.19-5.50) L 06/21/17 04:07 Hgb 10.4 g/dL (12.9-16.9) L D 06/22/17 03:46 Hct 29.9 % (37.5-50.1) L 06/22/17 03:46 MPV 9.3 fL (9.4-12.4) L 06/21/17 04:07 ESR 61 mm/hr (0-10) H 06/18/17 09:19 Sodium 130 mEq/L (136-145) L 06/21/17 04:07 Chloride 97 mEq/L (98-109) L 06/21/17 04:07 Calculated Osmolality 269 (280-300) L 06/21/17 04:07 Alkaline Phosphatase 155 Units/L (38-126) H 06/18/17 09:19 C-Reactive Protein 35 mg/L (Less than 5) H 06/18/17 09:19 Globulin 3.9 g/dL (2.4-3.5) H 06/18/17 09:19 Albumin/Globulin Ratio 0.9 (1.1-2.2) L 06/18/17 09:19 - VTE Documentation of Mechanical Device: Venous foot pump, device Consult Discharge Plan - Plan Referrals: Yovanny Briceno Jr, MD [Primary Care Provider] -
[2017-06-22] MEDS: Folic Acid 1 MG TABLET PO SCH (09:55)
[2017-06-22] MEDS: Nicotine 14 MG PATCH.TD24 TD SCH (09:56)
[2017-06-22] MEDS: Multivit/Ca/Min/Fe/FA 1 TAB TABLET PO SCH (09:57)
[2017-06-22] MEDS: VILANTEROL TR IH SCH (10:00)
[2017-06-22] MEDS: UMECLIDINIUM BRM IH SCH (10:00)
[2017-06-22] MEDS: *HR* Morphine 2 MG/ML SYRINGE IVP PRN (11:23)
--- NOTE | 2017-06-22 11:55 | Internal Med Progress Note ---
Date of Encounter: 06/22/17 Time of Encounter: 11:55 - Assessment and plan (1) COPD (chronic obstructive pulmonary disease) Current Visit: Yes Status: Chronic Assessment and plan: Reports no shortness of breath. Continue with home meds. Qualifiers: COPD type: unspecified COPD Qualified Code(s): J44.9 - Chronic obstructive pulmonary disease, unspecified (2) DVT prophylaxis Current Visit: Yes Status: Acute Assessment and plan: On heparin and SCDs. (3) Metastatic cancer to bone Current Visit: Yes Status: Acute Assessment and plan: Pathalogic fracture of L acetabulum based on CT image. Ortho presented option for surgical or conservative management. Per oncology, their recommendation is that the patient proceed with total hip arthroplasty as this would be the best option to provide palliation of his pain and durability of the joint. POD 1 pain control Monitor CBC Ensure DVT prophylaxis (4) Left acetabular fracture Current Visit: Yes Status: Acute Assessment and plan: See plan above. Qualifiers: Encounter type: initial encounter Sublocation of acetabulum: unspecified portion of acetabulum Fracture type: closed Fracture alignment: nondisplaced Qualified Code(s): S32.402A - Unspecified fracture of left acetabulum, initial encounter for closed fracture (5) Pre-op evaluation Current Visit: Yes Status: Resolved (6) Smoker Current Visit: Yes Status: Chronic Assessment and plan: Cessation encouraged (7) Acute blood loss anemia Current Visit: Yes Status: Acute Assessment and plan: Surgery related Hb 12-14 on admission, 10 POD 1 Hb is acceptable today Monitor CBC hemodynamically stable - Subjective Interval history: Seen at bedside No new complains POD 1 s/p L hip arthroplasty for pathologic fracture secondary to bone mets from Lung CA - Constitutional Vitals: Temp Pulse Resp BP Pulse Ox 97.9 F 95 18 125/74 98 06/22/17 10:08 06/22/17 10:08 06/22/17 10:08 06/22/17 10:08 06/22/17 10:08 General appearance: Present: cachectic, A&O X 3, pleasant, no acute distress - Head Head exam: Present: atraumatic, normocephalic - Eye Eye exam: Present: PERRL, conjuntiva pink, sclera anicteric Pupils: Present: PERRL - Neck Neck exam general surgery: Present: supple, trachea midline. Absent: lymphadenopathy - Respiratory Respiratory exam: Present: CTAB. Absent: accessory muscle use, rales, rhonchi, wheezes - Cardiovascular Cardiovascular exam: Present: RRR, +S1, +S2. Absent: diastolic murmur, gallop, rubs, systolic murmur - GI/Abdominal GI/Abdominal exam: Present: normal bowel sounds, soft, no peritoneal signs. Absent: distended, tenderness - Extremities Exam Extremities exam: Present: normal inspection, warm, radial pulses palpable and symmetrical. Absent: calf tenderness, cyanotic, pedal edema Additional comments: Neurovascularly intact - Neurological Exam Neurological exam: Present: alert, CN II-XII intact, oriented X3, no focal deficits. Absent: pronater drift, facial droop, speech deficit - Skin Skin exam: Present: dry, intact Internal Medicine: Result - Labs CBC & Chem 7: 06/22/17 03:46 06/21/17 04:07 Labs: Short CBC 06/21/17 06/22/17 Range/Units 17:33 03:46 Hgb 11.9 L 10.4 L D (12.9-16.9) g/dL Hct 35.3 L 29.9 L (37.5-50.1) % - Impressions Impressions Hip X-Ray 06/21/17 17:32 IMPRESSION: Postop radiographs of the left hip with expected postsurgical appearance. D/ / Minh Chaparro MD / Minh Chaparro MD Interpreting Provider: Minh Chaparro MD - VTE Documentation of Mechanical Device: Intermittent pneumatic compression device Consult Discharge Plan - Plan Referrals: Yovanny Briceno Jr, MD [Primary Care Provider] -
[2017-06-23 01:48] LABS: Basophils % 0.3 %; Eosinophils % 0.2 %; Hematocrit 25.7 % (37.5-50.1); Immature Granulocytes % 0.4 % (0-4); Lymphocytes # 0.7 K/mcL (0.6-4.6); Lymphocytes % 7.9 %; Mean Corpuscular Hemoglobin 32.3 pg (28.0-33.3); Mean Corpuscular Volume 92.1 fL (83.0-100.0); Mean Platelet Volume 9.6 fL (9.4-12.4); Monocytes # 1.5 K/mcL (0.0-1.3); Monocytes % 15.5 %; Neutrophils # 7.1 K/mcL (1.6-8.9); Platelet Count 140 K/mcL (140-400); Red Blood Count 2.79 M/mcL (4.19-5.50); Red Cell Distribution Width 12.9 % (11.5-14.5); Segmented Neutrophils % 75.7 %
[2017-06-23 02:00] LABS: BUN/Creatinine Ratio 21 (6-26); Blood Urea Nitrogen 15 mg/dL (8-26); Calcium 8.4 mg/dL (8.6-10.8); Carbon Dioxide 25 mEq/L (19-29); Chloride 95 mEq/L (98-109); Glucose 100 mg/dL (70-99); Osmolality,Calculated 263 (280-300); Potassium 3.7 mEq/L (3.5-4.5); Sodium 126 mEq/L (136-145); eGFR For African Americans > 60 (> 60); eGFR For Non-African Americans > 60 (> 60)
[2017-06-23] MEDS: *HR* Heparin 5,000 UNIT/ML VIAL SQ SCH ×3 (07:02→22:35)
--- NOTE | 2017-06-23 07:35 | Orthopedics Progress Note ---
Date of Encounter: 06/23/17 Time of Encounter: 07:35 Subjective Interval history: Patient was seen this morning doing well without complaints. Afebrile vital signs stable. Operative extremity: Neurovascularly intact Dressing clean dry and intact Calves nontender Assessment and plan: Continue with postoperative care hemoglobin 9 Objective Vital signs: Vital Signs Temp Pulse Resp BP Pulse Ox 06/23/17 06:49 97.8 F 96 16 129/78 96 06/22/17 23:51 97.7 F 90 18 121/81 97 06/22/17 19:55 97.6 F 93 18 120/84 97 06/22/17 15:11 98.1 F 98 16 132/76 96 06/22/17 10:08 97.9 F 95 18 125/74 98 Intake and Output 06/22/17 06/22/17 06/23/17 15:59 23:59 07:59 Intake Total 800 / 800 300 / 300 Output Total 1000 / 1000 Balance -200 / -200 300 / 300 Intake: IV Fluids 100 / 100 Ancef 2,000 MG In 100 / 100 Dextrose 5% 100 ML @ 200 mls/hr IVPB Q8HR [facility] Rx#: [id number] Oral 800 / 800 200 / 200 Output: Urine 1000 / 1000 Other: Meal Lunch Dinner Percent of Meal Consumed 100% 85% # Voids 1 Weight 73 kg Patient Weight 06/23/17 23:59 Weight 73 kg - Labs CBC & BMP: 06/23/17 01:03 06/23/17 01:03 Labs: Abnormal lab results RBC 2.79 M/mcL (4.19-5.50) L 06/23/17 01:03 Hgb 9.0 g/dL (12.9-16.9) L 06/23/17 01:03 Hct 25.7 % (37.5-50.1) L 06/23/17 01:03 Monocytes # 1.5 K/mcL (0.0-1.3) H 06/23/17 01:03 ESR 61 mm/hr (0-10) H 06/18/17 09:19 Sodium 126 mEq/L (136-145) L 06/23/17 01:03 Chloride 95 mEq/L (98-109) L 06/23/17 01:03 Creatinine 0.70 mg/dL (0.72-1.25) L 06/23/17 01:03 Glucose 100 mg/dL (70-99) H 06/23/17 01:03 Calculated Osmolality 263 (280-300) L 06/23/17 01:03 Calcium 8.4 mg/dL (8.6-10.8) L 06/23/17 01:03 Alkaline Phosphatase 155 Units/L (38-126) H 06/18/17 09:19 C-Reactive Protein 35 mg/L (Less than 5) H 06/18/17 09:19 Globulin 3.9 g/dL (2.4-3.5) H 06/18/17 09:19 Albumin/Globulin Ratio 0.9 (1.1-2.2) L 06/18/17 09:19 - VTE Documentation of Mechanical Device: Venous foot pump, device Consult Discharge Plan - Plan Referrals: Yovanny Briceno Jr, MD [Primary Care Provider] -
[2017-06-23] MEDS: Folic Acid 1 MG TABLET PO SCH (08:18)
[2017-06-23] MEDS: Multivit/Ca/Min/Fe/FA 1 TAB TABLET PO SCH (08:18)
[2017-06-23] MEDS: amLODIPine 5 MG TABLET PO SCH ×2 (08:18→22:34)
[2017-06-23] MEDS: Ascorbic Acid 500 MG TABLET PO SCH ×2 (08:18→17:02)
[2017-06-23] MEDS: Nicotine 14 MG PATCH.TD24 TD SCH (08:19)
[2017-06-23] MEDS: VILANTEROL TR IH SCH (08:19)
[2017-06-23] MEDS: UMECLIDINIUM BRM IH SCH (08:19)
[2017-06-23] MEDS: *HR* OxyCODONE/APAP 5/325 TABLET PO PRN ×2 (08:20→14:24)
--- NOTE | 2017-06-23 10:49 | Internal Med Progress Note ---
Date of Encounter: 06/23/17 Time of Encounter: 10:49 - Assessment and plan (1) COPD (chronic obstructive pulmonary disease) Current Visit: Yes Status: Chronic Assessment and plan: Reports no shortness of breath. Continue with home meds. Qualifiers: COPD type: unspecified COPD Qualified Code(s): J44.9 - Chronic obstructive pulmonary disease, unspecified (2) DVT prophylaxis Current Visit: Yes Status: Acute Assessment and plan: On heparin and SCDs. (3) Metastatic cancer to bone Current Visit: Yes Status: Acute Assessment and plan: Pathalogic fracture of L acetabulum based on CT image. Ortho presented option for surgical or conservative management. Per oncology, their recommendation is that the patient proceed with total hip arthroplasty as this would be the best option to provide palliation of his pain and durability of the joint. POD 2 pain control Monitor CBC Ensure DVT prophylaxis (4) Left acetabular fracture Current Visit: Yes Status: Acute Assessment and plan: See plan above. Qualifiers: Encounter type: initial encounter Sublocation of acetabulum: unspecified portion of acetabulum Fracture type: closed Fracture alignment: nondisplaced Qualified Code(s): S32.402A - Unspecified fracture of left acetabulum, initial encounter for closed fracture (5) Pre-op evaluation Current Visit: Yes Status: Resolved Assessment and plan: Resolved. (6) Smoker Current Visit: Yes Status: Chronic Assessment and plan: Cessation encouraged (7) Acute blood loss anemia Current Visit: Yes Status: Acute Assessment and plan: Surgery related Hb 12-14 on admission, 10 POD 1, 9.8 today Hb is acceptable today Monitor CBC hemodynamically stable - Subjective Interval history: Seen at bedside No new complains POD 2 s/p L hip arthroplasty for pathologic fracture secondary to bone mets from Lung CA - Constitutional Vitals: Temp Pulse Resp BP Pulse Ox 97.8 F 96 16 129/78 97 06/23/17 06:49 06/23/17 06:49 06/23/17 06:49 06/23/17 06:49 06/23/17 08:00 General appearance: Present: cachectic, A&O X 3, pleasant, no acute distress - Head Head exam: Present: atraumatic, normocephalic - Eye Eye exam: Present: PERRL, conjuntiva pink, sclera anicteric Pupils: Present: PERRL - Neck Neck exam general surgery: Present: supple, trachea midline. Absent: lymphadenopathy - Respiratory Respiratory exam: Present: CTAB. Absent: accessory muscle use, rales, rhonchi, wheezes - Cardiovascular Cardiovascular exam: Present: RRR, +S1, +S2. Absent: diastolic murmur, gallop, rubs, systolic murmur - GI/Abdominal GI/Abdominal exam: Present: normal bowel sounds, soft, no peritoneal signs. Absent: distended, tenderness - Extremities Exam Extremities exam: Present: warm, radial pulses palpable and symmetrical. Absent : calf tenderness, cyanotic, pedal edema - Neurological Exam Neurological exam: Present: alert, CN II-XII intact, oriented X3, no focal deficits. Absent: pronater drift, facial droop, speech deficit - Skin Skin exam: Present: dry Internal Medicine: Result - Labs CBC & Chem 7: 06/23/17 01:03 06/23/17 01:03 Labs: Short CBC 06/23/17 Range/Units 01:03 WBC 9.4 (4.3-11.1) K/mcL Hgb 9.0 L (12.9-16.9) g/dL Hct 25.7 L (37.5-50.1) % Plt Count 140 (140-400) K/mcL Neutrophils # 7.1 (1.6-8.9) K/mcL BMP 06/23/17 01:03 Sodium 126 L Potassium 3.7 Chloride 95 L Carbon Dioxide 25 BUN 15 Creatinine 0.70 L Glucose 100 H Calcium 8.4 L - VTE Documentation of Mechanical Device: Venous foot pump, device Consult Discharge Plan - Plan Referrals: Yovanny Briceno Jr, MD [Primary Care Provider] -
[2017-06-23] MEDS: *HR* Morphine 2 MG/ML SYRINGE IVP PRN (11:03)
[2017-06-24] MEDS: *HR* OxyCODONE/APAP 5/325 TABLET PO PRN ×3 (01:18→21:43)
[2017-06-24] MEDS: *HR* Heparin 5,000 UNIT/ML VIAL SQ SCH ×3 (06:11→21:38)
[2017-06-24 07:07] LABS: Basophils % 0.3 %; Eosinophils # 0.1 K/mcL (0.0-0.6); Eosinophils % 0.6 %; Hemoglobin 9.6 g/dL (12.9-16.9); Immature Granulocytes % 0.4 % (0-4); Lymphocytes # 0.6 K/mcL (0.6-4.6); Lymphocytes % 6.6 %; Mean Corpuscular HGB Conc 34.3 g/dL (31.6-35.5); Mean Corpuscular Hemoglobin 31.8 pg (28.0-33.3); Mean Corpuscular Volume 92.7 fL (83.0-100.0); Mean Platelet Volume 9.3 fL (9.4-12.4); Monocytes # 1.3 K/mcL (0.0-1.3); Monocytes % 14.3 %; Platelet Count 160 K/mcL (140-400); Red Blood Count 3.02 M/mcL (4.19-5.50); Red Cell Distribution Width 12.9 % (11.5-14.5); Segmented Neutrophils % 77.8 %
[2017-06-24 07:23] LABS: BUN/Creatinine Ratio 18 (6-26); Blood Urea Nitrogen 13 mg/dL (8-26); Calcium 9.1 mg/dL (8.6-10.8); Carbon Dioxide 25 mEq/L (19-29); Glucose 120 mg/dL (70-99); eGFR For African Americans > 60 (> 60); eGFR For Non-African Americans > 60 (> 60)
[2017-06-24] MEDS: Multivit/Ca/Min/Fe/FA 1 TAB TABLET PO SCH (07:35)
[2017-06-24] MEDS: Ascorbic Acid 500 MG TABLET PO SCH ×2 (07:35→16:40)
[2017-06-24] MEDS: Folic Acid 1 MG TABLET PO SCH (07:35)
[2017-06-24 07:36] LABS: Chloride 93 mEq/L (98-109); Magnesium 1.6 mg/dL (1.6-2.6); Osmolality,Calculated 265 (280-300); Potassium 3.9 mEq/L (3.5-4.5); Sodium 127 mEq/L (136-145)
[2017-06-24] MEDS: Nicotine 14 MG PATCH.TD24 TD SCH (07:36)
[2017-06-24] MEDS: amLODIPine 5 MG TABLET PO SCH ×2 (07:36→21:37)
[2017-06-24] MEDS: VILANTEROL TR IH SCH (08:36)
[2017-06-24] MEDS: UMECLIDINIUM BRM IH SCH (08:36)
--- NOTE | 2017-06-24 10:02 | Orthopedics Progress Note ---
Date of Encounter: 06/24/17 Time of Encounter: 10:01 Subjective Interval history: Patient was seen this morning doing well without complaints. Afebrile vital signs stable. Operative extremity: Neurovascularly intact Dressing clean dry and intact Calves nontender Assessment and plan: Continue with postoperative care ortho stable Objective Vital signs: Vital Signs Temp Pulse Resp BP Pulse Ox 06/24/17 06:42 97.8 F 91 18 117/75 97 06/24/17 00:00 98.1 F 89 19 125/80 96 06/23/17 19:46 98.3 F 93 19 126/82 97 06/23/17 10:17 98.2 F 89 16 136/78 95 Intake and Output 06/23/17 06/24/17 06/24/17 23:59 07:59 15:59 Intake Total 200 / 200 400 / 400 Output Total 300 / 300 300 / 300 Balance -100 / -100 100 / 100 Intake: Oral 200 / 200 Free Water 400 / 400 Output: Urine 300 / 300 300 / 300 Other: # Voids 1 Weight 74.1 kg Patient Weight 06/24/17 23:59 Weight 74.1 kg - Labs CBC & BMP: 06/24/17 06:57 06/24/17 06:57 Labs: Abnormal lab results RBC 3.02 M/mcL (4.19-5.50) L 06/24/17 06:57 Hgb 9.6 g/dL (12.9-16.9) L 06/24/17 06:57 Hct 28.0 % (37.5-50.1) L 06/24/17 06:57 MPV 9.3 fL (9.4-12.4) L 06/24/17 06:57 ESR 61 mm/hr (0-10) H 06/18/17 09:19 Sodium 127 mEq/L (136-145) L 06/24/17 06:57 Chloride 93 mEq/L (98-109) L 06/24/17 06:57 Creatinine 0.71 mg/dL (0.72-1.25) L 06/24/17 06:57 Glucose 120 mg/dL (70-99) H 06/24/17 06:57 Calculated Osmolality 265 (280-300) L 06/24/17 06:57 Alkaline Phosphatase 155 Units/L (38-126) H 06/18/17 09:19 C-Reactive Protein 35 mg/L (Less than 5) H 06/18/17 09:19 Globulin 3.9 g/dL (2.4-3.5) H 06/18/17 09:19 Albumin/Globulin Ratio 0.9 (1.1-2.2) L 06/18/17 09:19 - VTE Documentation of Mechanical Device: Intermittent pneumatic compression device Consult Discharge Plan - Plan Referrals: Yovanny Briceno Jr, MD [Primary Care Provider] -
--- NOTE | 2017-06-24 11:37 | Internal Med Progress Note ---
<Wyatt Jarvis - Last Filed: 06/24/17 11:53> Date of Encounter: 06/24/17 Time of Encounter: 10:30 - Assessment and plan (1) Metastatic cancer to bone Current Visit: Yes Status: Acute Assessment and plan: Pathalogic fracture of L acetabulum based on CT image. Patient underwent hip arthoplasty on 06/21/17. Hemoglobin has increased to 9.6 from 9.0. Patient displaying good mobility per physical therapy. - Monitor CBC. -Continue pain control. -F/U with clinical social work aide for placement to [facility] in [place] once financial approvals are complete. (2) Left acetabular fracture Current Visit: Yes Status: Acute Assessment and plan: See plan above. Qualifiers: Encounter type: initial encounter Sublocation of acetabulum: unspecified portion of acetabulum Fracture type: closed Fracture alignment: nondisplaced Qualified Code(s): S32.402A - Unspecified fracture of left acetabulum, initial encounter for closed fracture (3) COPD (chronic obstructive pulmonary disease) Current Visit: Yes Status: Chronic Assessment and plan: Shortness of breath at his baseline. Continue with home meds. Qualifiers: COPD type: unspecified COPD Qualified Code(s): J44.9 - Chronic obstructive pulmonary disease, unspecified (4) DVT prophylaxis Current Visit: Yes Status: Acute Assessment and plan: On heparin and SCDs. (5) Primary cancer of right lung metastatic to other site Current Visit: Yes Status: Chronic Assessment and plan: Follows Dr. Khanna as an outpatient. Had palliative radiation to his pelvis with Dr. Rico. Patient has opted for hip replacement surgery tomorrow. Patient plans to resume chemotherapy afterwards as soon as appropriate medically. (6) Hyponatremia Current Visit: Yes Status: Acute Assessment and plan: Current sodium level is at 127, which has increased from 126 since yesterday. His sodium on admission was 131 and his baseline has been 131 from 05/09/17. Hyponatremia likely secondary to patient's lung cancer status. Patient displays no neurologic symptoms. Continue to monitor and plan to treat if it downtrends tomorrow. - Subjective Interval history: Patient is a 66 YO M with a PMH of HTN, COPD, and metastatic lung cancer that presented to the ED for increased L hip pain. He has been suffering bilateral hip pain for the past 7 weeks. He had received palliative radiation to this R hip before. Two days go, he was unable to bear any weight over his hip joint. CT of the pelvis revealed lytic lesions to the L acetabulum and fracture of the roof of the L lateral acetabulum. Patient was seen by ortho and presented with options for surgery (total hip replacement) or conservative management. Patient opted for conservative management initially, but he ultimately decided to undergo surgery, which he underwent on 06/21/17. Per PT, patient has been able to ambulate long distances. When seen today, he says that the tightness in his L hip has gotten better since yesterday. He also says that the swelling in his L hip was worst yesterday, but it has since subsided. He denies any fever, chills , nausea, vomiting, or chest pain. He complains of shortness of breath, but he describes it as being his baseline due to his COPD. - Constitutional Vitals: Temp Pulse Resp BP Pulse Ox 97.8 F 91 18 117/75 97 06/24/17 06:42 06/24/17 06:42 06/24/17 06:42 06/24/17 06:42 06/24/17 06:42 General appearance: Present: cachectic, A&O X 3, pleasant, no acute distress - Respiratory Respiratory exam: Present: CTAB. Absent: respiratory distress, wheezes, tachypnea - Cardiovascular Cardiovascular exam: Present: RRR, +S1, +S2. Absent: diastolic murmur, systolic murmur - GI/Abdominal GI/Abdominal exam: Present: soft. Absent: guarding, tenderness - Extremities Exam Extremities exam: Present: radial pulses palpable and symmetrical. Absent: pedal edema Additional comments: 5/5 strength in lower extremities bilaterally. Internal Medicine: Result - Labs CBC & Chem 7: 06/24/17 06:57 06/24/17 06:57 Labs: Short CBC 06/24/17 Range/Units 06:57 WBC 9.0 (4.3-11.1) K/mcL Hgb 9.6 L (12.9-16.9) g/dL Hct 28.0 L (37.5-50.1) % Plt Count 160 (140-400) K/mcL Neutrophils # 7.0 (1.6-8.9) K/mcL BMP 06/24/17 06:57 Sodium 127 L Potassium 3.9 Chloride 93 L Carbon Dioxide 25 BUN 13 Creatinine 0.71 L Glucose 120 H Calcium 9.1 - VTE Documentation of Mechanical Device: Intermittent pneumatic compression device Consult Discharge Plan - Plan Referrals: Yovanny Briceno Jr, MD [Primary Care Provider] - <Nir Webb - Last Filed: 06/24/17 16:01> Date of Encounter: 06/24/17 - Assessment and plan (1) COPD (chronic obstructive pulmonary disease) Current Visit: Yes Status: Chronic Qualifiers: COPD type: unspecified COPD Qualified Code(s): J44.9 - Chronic obstructive pulmonary disease, unspecified (2) DVT prophylaxis Current Visit: Yes Status: Acute (3) Metastatic cancer to bone Current Visit: Yes Status: Acute (4) Left acetabular fracture Current Visit: Yes Status: Acute Qualifiers: Encounter type: initial encounter Sublocation of acetabulum: unspecified portion of acetabulum Fracture type: closed Fracture alignment: nondisplaced Qualified Code(s): S32.402A - Unspecified fracture of left acetabulum, initial encounter for closed fracture (5) Pre-op evaluation Current Visit: Yes Status: Resolved (6) Smoker Current Visit: Yes Status: Chronic (7) Acute blood loss anemia Current Visit: Yes Status: Acute - Constitutional Vitals: Temp Pulse Resp BP Pulse Ox 98.1 F 92 18 129/79 98 06/24/17 15:05 06/24/17 15:05 06/24/17 15:05 06/24/17 15:05 06/24/17 15:05 Internal Medicine: Result - Labs CBC & Chem 7: 06/24/17 06:57 06/24/17 06:57 Labs: Short CBC 06/24/17 Range/Units 06:57 WBC 9.0 (4.3-11.1) K/mcL Hgb 9.6 L (12.9-16.9) g/dL Hct 28.0 L (37.5-50.1) % Plt Count 160 (140-400) K/mcL Neutrophils # 7.0 (1.6-8.9) K/mcL BMP 06/24/17 06:57 Sodium 127 L Potassium 3.9 Chloride 93 L Carbon Dioxide 25 BUN 13 Creatinine 0.71 L Glucose 120 H Calcium 9.1 - Attending Attestation I have independently seen and examined this patient on 06/24/17, reviewed the EMR and discussed plan of care with the patient and resident physician John Ames. Seen and evaluated at bedside. Stage IV Lung CA with mets to the hip admitted and being managed for pathologic fracture. He is denting new complains. POD 3 He is seen today with no new complains. Physical exam: VSS, not in distress, no neurologic deficits, speaks full sentences, CTAB, S1, S2 only, abdomen is soft and not tender. No pedal edema. Labs and imaging reviewed: Stable. Na is chronically low, slowly improving A/P: Stage IV Lung CA with bone mets, pathologic fracture and COPD. POD 3 s/p L hip arthroplasty Continue current management, for placement to SNF Rest of details as in resident physician's documentation
[2017-06-25] MEDS: *HR* Heparin 5,000 UNIT/ML VIAL SQ SCH ×3 (05:53→21:18)
[2017-06-25 06:01] LABS: Basophils % 0.4 %; Eosinophils # 0.1 K/mcL (0.0-0.6); Eosinophils % 1.4 %; Hematocrit 26.7 % (37.5-50.1); Hemoglobin 9.2 g/dL (12.9-16.9); Immature Granulocytes % 0.5 % (0-4); Lymphocytes # 0.6 K/mcL (0.6-4.6); Lymphocytes % 7.6 %; Mean Corpuscular HGB Conc 34.5 g/dL (31.6-35.5); Mean Corpuscular Hemoglobin 31.7 pg (28.0-33.3); Mean Corpuscular Volume 92.1 fL (83.0-100.0); Mean Platelet Volume 9.2 fL (9.4-12.4); Monocytes % 13.3 %; Neutrophils # 5.9 K/mcL (1.6-8.9); Platelet Count 181 K/mcL (140-400); Segmented Neutrophils % 76.8 %
[2017-06-25 06:03] LABS: BUN/Creatinine Ratio 17 (6-26); Blood Urea Nitrogen 12 mg/dL (8-26); Calcium 9.1 mg/dL (8.6-10.8); Carbon Dioxide 26 mEq/L (19-29); Chloride 94 mEq/L (98-109); Glucose 135 mg/dL (70-99); Magnesium 1.4 mg/dL (1.6-2.6); Osmolality,Calculated 268 (280-300); Potassium 3.9 mEq/L (3.5-4.5); Sodium 128 mEq/L (136-145); eGFR For African Americans > 60 (> 60); eGFR For Non-African Americans > 60 (> 60)
[2017-06-25] MEDS ORDERED: Magnesium Sulfate 2 GM in D5% in Water 100 ML IVPB ONE (06:47)
[2017-06-25] MEDS: Ascorbic Acid 500 MG TABLET PO SCH ×2 (08:42→17:09)
[2017-06-25] MEDS: amLODIPine 5 MG TABLET PO SCH ×2 (08:42→21:19)
[2017-06-25] MEDS: Folic Acid 1 MG TABLET PO SCH (08:42)
[2017-06-25] MEDS: Multivit/Ca/Min/Fe/FA 1 TAB TABLET PO SCH (08:42)
[2017-06-25] MEDS: Nicotine 14 MG PATCH.TD24 TD SCH (08:43)
--- NOTE | 2017-06-25 08:46 | Internal Med Progress Note ---
<Wyatt Jarvis - Last Filed: 06/25/17 14:57> Date of Encounter: 06/25/17 Time of Encounter: 08:30 - Assessment and plan (1) Metastatic cancer to bone Current Visit: Yes Status: Acute Assessment and plan: Pathalogic fracture of L acetabulum based on CT image. Patient underwent hip arthoplasty on 06/21/17. Hemoglobin has decreased from 9.6 from 9.2. Patient displaying good mobility per physical therapy. - Monitor CBC. -Continue pain control. -emergency medical services coordinator currently working to get patient placed in rhab facility at [facility]. Anticipated date of placement today or tomorrow. (2) Left acetabular fracture Current Visit: Yes Status: Acute Assessment and plan: See plan above. Qualifiers: Encounter type: initial encounter Sublocation of acetabulum: unspecified portion of acetabulum Fracture type: closed Fracture alignment: nondisplaced Qualified Code(s): S32.402A - Unspecified fracture of left acetabulum, initial encounter for closed fracture (3) COPD (chronic obstructive pulmonary disease) Current Visit: Yes Status: Chronic Assessment and plan: Shortness of breath at his baseline. Continue with home meds. Qualifiers: COPD type: unspecified COPD Qualified Code(s): J44.9 - Chronic obstructive pulmonary disease, unspecified (4) Primary cancer of right lung metastatic to other site Current Visit: Yes Status: Chronic Assessment and plan: Follows Dr. Khanna as an outpatient. Had palliative radiation to his pelvis with Dr. Rico. Patient has opted for hip replacement surgery tomorrow. Patient plans to resume chemotherapy afterwards as soon as appropriate medically. (5) Hyponatremia Current Visit: Yes Status: Acute Assessment and plan: Current sodium level is at 128, which has increased from 127 since yesterday. His sodium on admission was 131 and his baseline has been 131 from 05/09/17. Hyponatremia likely secondary to patient's lung cancer status. Patient displays no neurologic symptoms. Continue to monitor and plan to treat if it downtrends tomorrow. (6) Hypomagnesemia Current Visit: Yes Status: Acute Assessment and plan: Patient had magnesium of 1.4. He was given 2 gm of IV magnesium earlier this morning. (7) DVT prophylaxis Current Visit: Yes Status: Acute Assessment and plan: On heparin and SCDs. - Subjective Interval history: Patient is a 66 YO M with a PMH of HTN, COPD, and metastatic lung cancer that presented to the ED for increased L hip pain. He has been suffering bilateral hip pain for the past 7 weeks. He had received palliative radiation to this R hip before. Two days go, he was unable to bear any weight over his hip joint. CT of the pelvis revealed lytic lesions to the L acetabulum and fracture of the roof of the L lateral acetabulum. Patient was seen by ortho and presented with options for surgery (total hip replacement) or conservative management. Patient opted for conservative management initially, but he ultimately decided to undergo surgery, which he underwent on 06/21/17. Per PT, patient has been able to ambulate long distances. emergency medical services coordinator is currently trying to place him in a rehab facility named [facility]. When seen today, patient says that the pain in his L hip is minimal, rating it a 1/10 in the pain scale. He admits to minor swelling at the surgical site on his L hip. He is able to ambulate with a walker long distances. He denies any chest pain, shortness of breath, nausea, vomiting, numbness/tingling, headaches, or syncope. - Constitutional Vitals: Temp Pulse Resp BP Pulse Ox 97.6 F 85 16 127/73 99 06/25/17 07:01 06/25/17 07:01 06/25/17 07:01 06/25/17 07:01 06/25/17 07:01 General appearance: Present: cachectic, A&O X 3, pleasant, no acute distress - Respiratory Respiratory exam: Present: CTAB. Absent: respiratory distress, rhonchi, wheezes , tachypnea - Cardiovascular Cardiovascular exam: Present: RRR, +S1, +S2. Absent: diastolic murmur, systolic murmur - GI/Abdominal GI/Abdominal exam: Present: normal bowel sounds, soft. Absent: guarding, rebound, tenderness - Extremities Exam Extremities exam: Present: full ROM, radial pulses palpable and symmetrical. Absent: pedal edema Additional comments: Pedal pulses intact bilaterally. Sensations in lower extremities intact bilaterally. 5/5 strength in lower extremities bilaterally. Internal Medicine: Result - Labs CBC & Chem 7: 06/25/17 05:43 06/25/17 05:43 Labs: Short CBC 06/25/17 Range/Units 05:43 WBC 7.7 (4.3-11.1) K/mcL Hgb 9.2 L (12.9-16.9) g/dL Hct 26.7 L (37.5-50.1) % Plt Count 181 (140-400) K/mcL Neutrophils # 5.9 (1.6-8.9) K/mcL [facility] 06/25/17 05:43 Sodium 128 L Potassium 3.9 Chloride 94 L Carbon Dioxide 26 BUN 12 Creatinine 0.70 L Glucose 135 H Calcium 9.1 Laboratory Tests 06/25/17 05:43 Magnesium 1.4 L - VTE Documentation of Mechanical Device: Venous foot pump, device Consult Discharge Plan - Plan Referrals: Yovanny Briceno Jr, MD [Primary Care Provider] - <Tarun Bonner H - Last Filed: 06/25/17 15:02> Date of Encounter: 06/25/17 - Constitutional Vitals: Temp Pulse Resp BP Pulse Ox 97.6 F 85 16 127/73 99 06/25/17 07:01 06/25/17 07:01 06/25/17 07:01 06/25/17 07:01 06/25/17 07:01 Internal Medicine: Result - Labs CBC & Chem 7: 06/25/17 05:43 06/25/17 05:43 Labs: Short CBC 06/25/17 Range/Units 05:43 WBC 7.7 (4.3-11.1) K/mcL Hgb 9.2 L (12.9-16.9) g/dL Hct 26.7 L (37.5-50.1) % Plt Count 181 (140-400) K/mcL Neutrophils # 5.9 (1.6-8.9) K/mcL [facility] 06/25/17 05:43 Sodium 128 L Potassium 3.9 Chloride 94 L Carbon Dioxide 26 BUN 12 Creatinine 0.70 L Glucose 135 H Calcium 9.1 - Attending Attestation Send urine sodium and osmolality Consider either increasing sodium in diet or fluid restriction depending on results I examined this patient and my medical decision-making was reviewed with the Resident Physician. I agree with the documented findings, disposition and treatment plan as described except to the extent set forth below.
[2017-06-25] MEDS: UMECLIDINIUM BRM IH SCH (10:56)
[2017-06-25] MEDS: VILANTEROL TR IH SCH (10:56)
--- NOTE | 2017-06-25 12:31 | Event Note ---
Date of Encounter: 06/25/17 Time of Encounter: 12:31 Left THR - metastatic lesion - 06/21/17 POD#4 Patient seen at bedside. Pain control: yes Participating in PT. All questions and concerns addressed. Educated on use of incentive spirometer, ambulation, and hydration. Patient educated on post-operative restrictions and care. D/C plan: ECF.
[2017-06-25] MEDS: *HR* OxyCODONE/APAP 5/325 TABLET PO PRN ×2 (14:13→21:18)
[2017-06-25 19:00] LABS: Sodium, Urine < 20.0 mEq/L
[2017-06-26 02:02] LABS: Osmolality,Urine 504 mOsm/kg (300-1090)
[2017-06-26 06:07] LABS: Basophils % 0.5 %; Eosinophils # 0.2 K/mcL (0.0-0.6); Eosinophils % 2.4 %; Hematocrit 28.4 % (37.5-50.1); Hemoglobin 9.7 g/dL (12.9-16.9); Immature Granulocytes % 0.5 % (0-4); Lymphocytes # 0.6 K/mcL (0.6-4.6); Lymphocytes % 6.9 %; Mean Corpuscular HGB Conc 34.2 g/dL (31.6-35.5); Mean Corpuscular Hemoglobin 31.6 pg (28.0-33.3); Mean Corpuscular Volume 92.5 fL (83.0-100.0); Mean Platelet Volume 9.2 fL (9.4-12.4); Monocytes # 1.1 K/mcL (0.0-1.3); Monocytes % 12.9 %; Neutrophils # 6.7 K/mcL (1.6-8.9); Platelet Count 230 K/mcL (140-400); Red Blood Count 3.07 M/mcL (4.19-5.50); Red Cell Distribution Width 13.1 % (11.5-14.5); Segmented Neutrophils % 76.8 %
[2017-06-26 06:20] LABS: BUN/Creatinine Ratio 14 (6-26); Blood Urea Nitrogen 10 mg/dL (8-26); Carbon Dioxide 25 mEq/L (19-29); Chloride 94 mEq/L (98-109); Glucose 93 mg/dL (70-99); Magnesium 1.6 mg/dL (1.6-2.6); Osmolality,Calculated 263 (280-300); Potassium 3.8 mEq/L (3.5-4.5); Sodium 127 mEq/L (136-145); eGFR For African Americans > 60 (> 60); eGFR For Non-African Americans > 60 (> 60)
[2017-06-26] MEDS: *HR* Heparin 5,000 UNIT/ML VIAL SQ SCH ×3 (06:40→21:39)
[2017-06-26] MEDS: *HR* OxyCODONE/APAP 5/325 TABLET PO PRN ×2 (06:41→18:15)
[2017-06-26] MEDS: amLODIPine 5 MG TABLET PO SCH ×2 (08:14→21:39)
[2017-06-26] MEDS: Nicotine 14 MG PATCH.TD24 TD SCH (08:14)
[2017-06-26] MEDS: Ascorbic Acid 500 MG TABLET PO SCH ×2 (08:14→18:04)
[2017-06-26] MEDS: Multivit/Ca/Min/Fe/FA 1 TAB TABLET PO SCH (08:15)
[2017-06-26] MEDS: Folic Acid 1 MG TABLET PO SCH (08:15)
--- NOTE | 2017-06-26 08:33 | Discharge Summary ---
<Wyatt Jarvis - Last Filed: 06/26/17 09:09> Date of Encounter: 06/26/17 Time of Encounter: 08:45 - Discharge Diagnosis (1) Metastatic cancer to bone Priority: Primary Status: Acute (2) Left acetabular fracture Priority: Primary Status: Acute Qualifiers: Encounter type: initial encounter Sublocation of acetabulum: unspecified portion of acetabulum Fracture type: closed Fracture alignment: nondisplaced Qualified Code(s): S32.402A - Unspecified fracture of left acetabulum, initial encounter for closed fracture (3) COPD (chronic obstructive pulmonary disease) Priority: Primary Status: Chronic Qualifiers: COPD type: unspecified COPD Qualified Code(s): J44.9 - Chronic obstructive pulmonary disease, unspecified (4) Primary cancer of right lung metastatic to other site Priority: Primary Status: Chronic (5) Hyponatremia Priority: Primary Status: Acute (6) Hypomagnesemia Priority: Primary Status: Acute (7) DVT prophylaxis Priority: Primary Status: Acute - Discharge Medications Home Medications: Albuterol Sulfate [Ventolin Hfa] 2 puff IH Q4H PRN 05/23/17 [History] Umeclidinium Brm/Vilanterol Tr [Anoro Ellipta 62.5-25 Mcg INH] 1 puff IH DAILY 05/23/17 [History] amLODIPine [Norvasc] 5 mg PO BID 05/23/17 [History] OxyCODONE/APAP 5/325 [Percocet 5/325 MG] 1 tab PO Q6-8H PRN #90 06/03/17 [Rx] Folic Acid 1 mg PO DAILY #30 tablet 06/05/17 [Rx] Docusate [Colace] 100 mg PO BID 06/18/17 [History] Allergies/Adverse Reactions: 3 Allergy/AdvReac Type Severity Reaction Status Date / Time codeine Allergy Hives Verified 05/23/17 12:15 Date of admission: 06/20/17 12:11 Primary care physician: Yovanny Briceno Jr, MD Consults: 06/21/17 18:21 Consult to Nurse Navigator [CONS] Routine Comment: ortho navigator Consult to Occupational Therapy [CONS] Routine Comment: Evaluate, develop and implement POC Reason for Consult: total hip replacement Consult to Physical Therapy [CONS] Routine Comment: Evaluate, develop and implement POC Reason for Consult: total hip replacement Consult to Die Stamping Press Operator [CONS] Routine Reason for SW Consult: post op joint replacement RT Post Op Consult [CONS] Routine Discharging clinician: Tarun Bonner Anticipated date of discharge: 06/26/17 - Patient Status Disposition: Transfer Inpatient Rehab Fac Condition: Good Functional capacity at discharge: uses cane/walker Overall status at discharge: patient is progressing back to baseline - Discharge Instructions Follow Up With: Yovanny Briceno Jr, MD [Primary Care Provider] - - Diet and Activity Activity: as per physical therapy Diet: regular diet Interval History: Mr. Santoyo is a 66 year old male with a PMH of HTN, COPD, and metastatic lung cancer that presented to the ED for increased L hip pain. Hospital course: Mr. Santoyo is a 66 year old male with a PMH of HTN, COPD, and metastatic lung cancer that presented to the ED for increased L hip pain. He has been suffering bilateral hip pain for the past 7 weeks. He had received palliative radiation to this R hip before. Two days before presentation, he was unable to bear any weight over his L hip joint. CT of the pelvis revealed lytic lesions to the L acetabulum and fracture of the roof of the L lateral acetabulum. Patient was seen by ortho and presented with options for surgery (total hip replacement) or conservative management. Patient opted for conservative management initially, but he ultimately decided to undergo surgery, which he underwent on 06/21/17. His hemoglobin has been stable today at 9.7. He has had no exacerbation of his shortness of breath and cites that it has been around his baseline. He was treated with albuterol PRN for his COPD. Patient plans to resume chemotherapy soon. Per PT, patient has been able to ambulate long distances. [facility] [place]. Currently awaiting pirior authorization. When seen today, patient says his L hip pain has improved considerably. He has no pain while sitting and just minor stiffness and discomfort when standing up. His shortness of breath has been at his baseline. He denies any chest pain, light-headedness, syncope, dizziness, cough , fever, chills, urinary retention, nausea, or vomiting. - Time Spent with Patient Total time spent providing and/or coordinating discharge services: Greater than 30 minutes - Constitutional Vitals: Temp Pulse Resp BP Pulse Ox 97.8 F 86 16 132/75 99 06/26/17 00:36 06/26/17 00:36 06/26/17 00:36 06/26/17 00:36 06/26/17 00:36 General appearance: Present: cachectic, A&O X 3, pleasant, no acute distress, answers questions appropriately - Respiratory Respiratory exam: Present: CTAB. Absent: respiratory distress, rhonchi, wheezes , tachypnea - Cardiovascular Cardiovascular exam: Present: RRR, +S1, +S2. Absent: diastolic murmur, systolic murmur - GI/Abdominal GI/Abdominal exam: Present: soft. Absent: distended, guarding, rebound, tenderness - Extremities Exam Extremities exam: Present: radial pulses palpable and symmetrical. Absent: pedal edema Additional comments: Pedal pulses intact bilaterally. 5/5 strength lower extremities bilaterally. Surigical scar dressing intact on L hip. No signs of active bleeding, pus, drainage, or erythema. - VTE Documentation of Mechanical Device: Venous foot pump, device <Tarun Bonner - Last Filed: 06/26/17 10:23> Date of Encounter: 06/26/17 Date of admission: 06/20/17 12:11 Primary care physician: Yovanny Briceno Jr, MD Consults: 06/21/17 18:21 Consult to Nurse Navigator [CONS] Routine Comment: ortho navigator Consult to Occupational Therapy [CONS] Routine Comment: Evaluate, develop and implement POC Reason for Consult: total hip replacement Consult to Physical Therapy [CONS] Routine Comment: Evaluate, develop and implement POC Reason for Consult: total hip replacement Consult to Die Stamping Press Operator [CONS] Routine Reason for SW Consult: post op joint replacement RT Post Op Consult [CONS] Routine Hospital course: Mr. Santoyo is a 66 year old male - Time Spent with Patient Total time spent providing and/or coordinating discharge services: - Constitutional Vitals: Temp Pulse Resp BP Pulse Ox 97.9 F 89 16 129/79 97 06/26/17 09:04 06/26/17 09:04 06/26/17 00:36 06/26/17 09:04 06/26/17 09:04 - Attending Attestation Urine sodium was less than 20. Maintain proper hydration, increase salt intake Acute to be discharged to a rehabilitation facility Time spent: 40 minutes I examined this patient and my medical decision-making was reviewed with the Resident Physician. I agree with the documented findings, disposition and treatment plan as described except to the extent set forth below.
--- NOTE | 2017-06-26 10:30 | Physician Discharge Referral ---
<Wyatt Jarvis - Last Filed: 06/26/17 10:28> ExtendedCare Referral Info Transfer To: Extended care facility Provider in Charge: Dr. Thompson Provider in Charge after Transfer: PCP Institutional Level of Care: Intermediate - Diagnosis (1) Metastatic cancer to bone Priority: Primary Status: Acute (2) Left acetabular fracture Priority: Primary Status: Acute (3) COPD (chronic obstructive pulmonary disease) Priority: Primary Status: Chronic (4) Primary cancer of right lung metastatic to other site Priority: Primary Status: Chronic (5) Hyponatremia Priority: Primary Status: Acute (6) Hypomagnesemia Priority: Primary Status: Acute (7) DVT prophylaxis Priority: Primary Status: Acute Prognosis: Fair Aware of Diagnosis: Patient Aware of Prognosis: Patient - Transfer Medications Home Medications: Albuterol Sulfate [Ventolin Hfa] 2 puff IH Q4H PRN 05/23/17 [History] Umeclidinium Brm/Vilanterol Tr [Anoro Ellipta 62.5-25 Mcg INH] 1 puff IH DAILY 05/23/17 [History] amLODIPine [Norvasc] 5 mg PO BID 05/23/17 [History] OxyCODONE/APAP 5/325 [Percocet 5/325 MG] 1 tab PO Q6-8H PRN #90 06/03/17 [Rx] Folic Acid 1 mg PO DAILY #30 tablet 06/05/17 [Rx] Docusate [Colace] 100 mg PO BID 06/18/17 [History] Allergies/Adverse Reactions: 3 Allergy/AdvReac Type Severity Reaction Status Date / Time codeine Allergy Hives Verified 05/23/17 12:15 - Respiratory Orders None Smoking Cessation: Smoking cessation has been advised. For more information, call the [place] Tobacco Quit Line at 8-323-LLXS-NOW. - Advance Directives Code Status: Full Code - Mobility Orders Other - Rehabiliation Orders Rehab Potential: Good - Diet Orders Regular (May increase salt in diet.) CERTIFICATION: I certify that the transfer of the above named patient to an Extended Care Facility is necessary for the continuing treatment of the diagnosis listed. The above information is true and accurate reflection of patient's current condition. Confidential - Redisclosure prohibited without a patient's written consent. <Tarun Bonner - Last Filed: 06/26/17 15:10> - Respiratory Orders Smoking Cessation: Smoking cessation has been advised. For more information, call the [place] Tobacco Quit Line at 7-150-MXGR-NOW. CERTIFICATION: I certify that the transfer of the above named patient to an Extended Care Facility is necessary for the continuing treatment of the diagnosis listed. The above information is true and accurate reflection of patient's current condition. Confidential - Redisclosure prohibited without a patient's written consent. Add Lovenox 30 mg daily
[2017-06-26] MEDS: UMECLIDINIUM BRM IH SCH (11:00)
[2017-06-26] MEDS: VILANTEROL TR IH SCH (11:00)
--- NOTE | 2017-06-26 11:44 | Event Note ---
Date of Encounter: 06/26/17 Time of Encounter: 11:49 Left THR - metastatic lesion - 06/21/17 POD#5 Patient seen at bedside. Pain control: yes Participating in PT. All questions and concerns addressed. Educated on use of incentive spirometer, ambulation, and hydration. Patient educated on post-operative restrictions and care. Scant drainage noted to the bandage - will plan to change prior to discharge. D/C plan: ECF
[2017-06-27 05:12] LABS: Basophils % 0.4 %; Eosinophils # 0.2 K/mcL (0.0-0.6); Eosinophils % 2.4 %; Hemoglobin 9.1 g/dL (12.9-16.9); Immature Granulocytes % 0.5 % (0-4); Immature Platelets 2.5 % (1.1-6.1); Lymphocytes # 0.6 K/mcL (0.6-4.6); Lymphocytes % 6.7 %; Mean Corpuscular Hemoglobin 32.9 pg (28.0-33.3); Mean Corpuscular Volume 93.9 fL (83.0-100.0); Mean Platelet Volume 9.2 fL (9.4-12.4); Monocytes # 1.1 K/mcL (0.0-1.3); Monocytes % 13.9 %; Neutrophils # 6.2 K/mcL (1.6-8.9); Platelet Count 252 K/mcL (140-400); Red Blood Count 2.77 M/mcL (4.19-5.50); Red Cell Distribution Width 13.2 % (11.5-14.5); Segmented Neutrophils % 76.1 %
[2017-06-27] MEDS: *HR* Heparin 5,000 UNIT/ML VIAL SQ SCH ×3 (05:25→22:13)
[2017-06-27] MEDS: *HR* OxyCODONE/APAP 5/325 TABLET PO PRN ×2 (05:25→18:07)
[2017-06-27 05:34] LABS: BUN/Creatinine Ratio 16 (6-26); Blood Urea Nitrogen 11 mg/dL (8-26); Calcium 8.8 mg/dL (8.6-10.8); Carbon Dioxide 25 mEq/L (19-29); Chloride 94 mEq/L (98-109); Glucose 90 mg/dL (70-99); Magnesium 1.6 mg/dL (1.6-2.6); Osmolality,Calculated 263 (280-300); Potassium 4.1 mEq/L (3.5-4.5); Sodium 127 mEq/L (136-145); eGFR For African Americans > 60 (> 60); eGFR For Non-African Americans > 60 (> 60)
[2017-06-27] MEDS: Multivit/Ca/Min/Fe/FA 1 TAB TABLET PO SCH (10:02)
[2017-06-27] MEDS: Ascorbic Acid 500 MG TABLET PO SCH ×2 (10:02→18:04)
[2017-06-27] MEDS: Nicotine 14 MG PATCH.TD24 TD SCH (10:02)
[2017-06-27] MEDS: amLODIPine 5 MG TABLET PO SCH ×2 (10:02→22:13)
--- NOTE | 2017-06-27 10:55 | Internal Med Progress Note ---
<Wyatt Jarvis - Last Filed: 06/27/17 10:53> Date of Encounter: 06/27/17 Time of Encounter: 10:45 - Assessment and plan (1) Metastatic cancer to bone Current Visit: Yes Status: Acute Assessment and plan: Pathalogic fracture of L acetabulum based on CT image. Patient underwent hip arthoplasty on 06/21/17. Hemoglobin stable at 9.1. Patient displaying good mobility per physical therapy. - Monitor CBC. -Continue pain control. -director field services currently working to get patient placed in rehab facility at [facility]. Anticipated date of placement today. (2) Left acetabular fracture Current Visit: Yes Status: Acute Assessment and plan: See plan above. Qualifiers: Encounter type: initial encounter Sublocation of acetabulum: unspecified portion of acetabulum Fracture type: closed Fracture alignment: nondisplaced Qualified Code(s): S32.402A - Unspecified fracture of left acetabulum, initial encounter for closed fracture (3) COPD (chronic obstructive pulmonary disease) Current Visit: Yes Status: Chronic Assessment and plan: Shortness of breath at his baseline. Continue with home meds. Qualifiers: COPD type: unspecified COPD Qualified Code(s): J44.9 - Chronic obstructive pulmonary disease, unspecified (4) Primary cancer of right lung metastatic to other site Current Visit: Yes Status: Chronic Assessment and plan: Follows Dr. Khanna as an outpatient. Had palliative radiation to his pelvis with Dr. Rico. Patient has underwent hip replacement surgery. Patient plans to resume chemotherapy afterwards as soon as appropriate medically. (5) Hyponatremia Current Visit: Yes Status: Acute Assessment and plan: Current sodium level is at 128, which has stayed at 127 since yesterday. His sodium on admission was 131 and his baseline has been 131 from 05/09/17. Hyponatremia likely secondary to patient's lung cancer status. Patient displays no neurologic symptoms. Continue to monitor and plan to treat if it downtrends. (6) Hypomagnesemia Current Visit: Yes Status: Resolved Assessment and plan: Patient's magnesium stable at 1.6. (7) DVT prophylaxis Current Visit: Yes Status: Acute Assessment and plan: On heparin and SCDs. - Subjective Interval history: Patient is a 66 YO M with a PMH of HTN, COPD, and metastatic lung cancer that presented to the ED for increased L hip pain. He has been suffering bilateral hip pain for the past 7 weeks. He had received palliative radiation to this R hip before. Two days go, he was unable to bear any weight over his hip joint. CT of the pelvis revealed lytic lesions to the L acetabulum and fracture of the roof of the L lateral acetabulum. Patient was seen by ortho and presented with options for surgery (total hip replacement) or conservative management. Patient opted for conservative management initially, but he ultimately decided to undergo surgery, which he underwent on 06/21/17. Per PT, patient has been able to ambulate long distances. director field services is currently trying to place him in a rehab facility named [facility]. When seen today, patient says that the pain in his L hip is minimal. He says that he has been able to ambulate farther with his walker with PT/OT. He denies any shortness of breath, fever, chills, chest pain, light-headedness, syncope, dizziness, abdominal pain, nausea, vomiting, or numbness.tingling. - Constitutional Vitals: Temp Pulse Resp BP Pulse Ox 97.7 F 96 18 127/76 98 06/27/17 09:59 06/27/17 09:59 06/27/17 09:59 06/27/17 09:59 06/27/17 09:59 General appearance: Present: cachectic, A&O X 3, pleasant, no acute distress, answers questions appropriately - Respiratory Respiratory exam: Present: CTAB. Absent: respiratory distress, rhonchi, wheezes , tachypnea - Cardiovascular Cardiovascular exam: Present: RRR, +S1, +S2. Absent: diastolic murmur, systolic murmur - GI/Abdominal GI/Abdominal exam: Present: normal bowel sounds, soft. Absent: distended, rebound, tenderness - Extremities Exam Extremities exam: Present: pedal edema, radial pulses palpable and symmetrical. Absent: calf tenderness, cyanotic Additional comments: Pedal pulses intact bilaterally. +1 pitting edema of L foot. L hip surgical site has dressing intact. No signs of bleeding, pus, or drainage. Internal Medicine: Result - Labs CBC & Chem 7: 06/27/17 04:28 06/27/17 04:28 Labs: Short CBC 06/27/17 Range/Units 04:28 WBC 8.2 (4.3-11.1) K/mcL Hgb 9.1 L (12.9-16.9) g/dL Hct 26.0 L (37.5-50.1) % Plt Count 252 (140-400) K/mcL Neutrophils # 6.2 (1.6-8.9) K/mcL [facility] 06/27/17 04:28 Sodium 127 L Potassium 4.1 Chloride 94 L Carbon Dioxide 25 BUN 11 Creatinine 0.70 L Glucose 90 Calcium 8.8 Laboratory Tests 06/27/17 04:28 Magnesium 1.6 - VTE Documentation of Mechanical Device: Venous foot pump, device Consult Discharge Plan - Plan Referrals: Yovanny Briceno Jr, MD [Primary Care Provider] - Prescriptions: Enoxaparin [Lovenox] 30 mg SQ DAILY #14 syr <Tarun Bonner H - Last Filed: 06/27/17 15:08> Date of Encounter: 06/27/17 - Constitutional Vitals: Temp Pulse Resp BP Pulse Ox 98.3 F 92 16 137/74 96 06/27/17 14:39 06/27/17 14:39 06/27/17 14:39 06/27/17 14:39 06/27/17 14:39 Internal Medicine: Result - Labs CBC & Chem 7: 06/27/17 04:28 06/27/17 04:28 Labs: Short CBC 06/27/17 Range/Units 04:28 WBC 8.2 (4.3-11.1) K/mcL Hgb 9.1 L (12.9-16.9) g/dL Hct 26.0 L (37.5-50.1) % Plt Count 252 (140-400) K/mcL Neutrophils # 6.2 (1.6-8.9) K/mcL [facility] 06/27/17 04:28 Sodium 127 L Potassium 4.1 Chloride 94 L Carbon Dioxide 25 BUN 11 Creatinine 0.70 L Glucose 90 Calcium 8.8 - Attending Attestation Stable to be discharged
[2017-06-27] MEDS: VILANTEROL TR IH SCH (13:55)
[2017-06-27] MEDS: Folic Acid 1 MG TABLET PO SCH (13:55)
[2017-06-27] MEDS: UMECLIDINIUM BRM IH SCH (13:55)
[2017-06-28] MEDS: *HR* OxyCODONE/APAP 5/325 TABLET PO PRN ×4 (00:20→20:21)
[2017-06-28] MEDS: *HR* Heparin 5,000 UNIT/ML VIAL SQ SCH ×2 (06:38→17:29)
--- NOTE | 2017-06-28 09:51 | Internal Med Progress Note ---
<Wyatt Jarvis - Last Filed: 06/28/17 09:49> Date of Encounter: 06/28/17 Time of Encounter: 09:40 - Assessment and plan (1) Metastatic cancer to bone Current Visit: Yes Status: Acute Assessment and plan: Pathalogic fracture of L acetabulum based on CT image. Patient underwent hip arthoplasty on 06/21/17. Patient displaying good mobility per physical therapy. -Continue pain control. -financial services professional currently working to get patient placed in rehab facility at [facility]. Anticipated date of placement today. (2) Left acetabular fracture Current Visit: Yes Status: Acute Assessment and plan: See plan above. Qualifiers: Encounter type: initial encounter Sublocation of acetabulum: unspecified portion of acetabulum Fracture type: closed Fracture alignment: nondisplaced Qualified Code(s): S32.402A - Unspecified fracture of left acetabulum, initial encounter for closed fracture (3) COPD (chronic obstructive pulmonary disease) Current Visit: Yes Status: Chronic Assessment and plan: Shortness of breath at his baseline. Continue with home meds. Qualifiers: COPD type: unspecified COPD Qualified Code(s): J44.9 - Chronic obstructive pulmonary disease, unspecified (4) Primary cancer of right lung metastatic to other site Current Visit: Yes Status: Chronic Assessment and plan: Follows Dr. Khanna as an outpatient. Had palliative radiation to his pelvis with Dr. Rico. Patient has underwent hip replacement surgery. Patient plans to resume chemotherapy afterwards as soon as appropriate medically. (5) Hyponatremia Current Visit: Yes Status: Acute Assessment and plan: Patient's sodium yesterday was 127 and his baseline has been a 131. Hyponatremia likely secondary to patient's lung cancer status. Patient displays no neurologic symptoms. (6) DVT prophylaxis Current Visit: Yes Status: Acute Assessment and plan: On heparin and SCDs. - Subjective Interval history: Patient is a 66 YO M with a PMH of HTN, COPD, and metastatic lung cancer that presented to the ED for increased L hip pain. He has been suffering bilateral hip pain for the past 7 weeks. He had received palliative radiation to this R hip before. Two days go, he was unable to bear any weight over his hip joint. CT of the pelvis revealed lytic lesions to the L acetabulum and fracture of the roof of the L lateral acetabulum. Patient was seen by ortho and presented with options for surgery (total hip replacement) or conservative management. Patient opted for conservative management initially, but he ultimately decided to undergo surgery, which he underwent on 06/21/17. Per PT, patient has been able to ambulate long distances. financial services professional is currently trying to place him in a rehab facility named [facility]. When seen today, patient says that the pain in his L hip is minimal. He says that he has been able to ambulate with his walker with PT/OT. His shortness of breath due to his COPD has been at his baseline. He denies fever, chills, chest pain, light-headedness, syncope, dizziness, abdominal pain, nausea, vomiting, or numbness/tingling. - Constitutional Vitals: Temp Pulse Resp BP Pulse Ox 97.7 F 94 17 145/84 97 06/28/17 00:45 06/28/17 00:45 06/28/17 00:45 06/28/17 00:45 06/28/17 00:45 General appearance: Present: cachectic, A&O X 3, pleasant, no acute distress, answers questions appropriately - Respiratory Respiratory exam: Present: CTAB. Absent: respiratory distress, rhonchi, wheezes , tachypnea - Cardiovascular Cardiovascular exam: Present: RRR, +S1, +S2. Absent: diastolic murmur, systolic murmur - GI/Abdominal GI/Abdominal exam: Present: soft. Absent: guarding, rebound, tenderness - Extremities Exam Extremities exam: Present: pedal edema (Edema in L foot has improved considerably since yesterday. ). Absent: cyanotic, tenderness Additional comments: Pedal pulses intact bilaterally. Dressing on L hip surgical site intact. No signs of active bleeding, pus, or discharge. Internal Medicine: Result - Labs CBC & Chem 7: 06/27/17 04:28 06/27/17 04:28 - VTE Documentation of Mechanical Device: Venous foot pump, device Consult Discharge Plan - Plan Referrals: Yovanny Briceno Jr, MD [Primary Care Provider] - Prescriptions: Enoxaparin [Lovenox] 30 mg SQ DAILY #14 syr <Tarun Bonner H - Last Filed: 06/28/17 16:07> Date of Encounter: 06/28/17 - Constitutional Vitals: Temp Pulse Resp BP Pulse Ox 97.7 F 94 17 145/84 97 06/28/17 00:45 06/28/17 00:45 06/28/17 00:45 06/28/17 00:45 06/28/17 00:45 Internal Medicine: Result - Labs CBC & Chem 7: 06/27/17 04:28 06/27/17 04:28 - Impressions Impressions Hip X-Ray 06/28/17 11:29 IMPRESSION: 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 Again noted is the lytic mass in the superior left acetabulum with a pathologic fracture D/ / 06/28/2017 12:17:43 [facility]oss [facility] Interpreting Provider: Mark Voss MD - Attending Attestation stable to be discharged I examined this patient and my medical decision-making was reviewed with the Resident Physician. I agree with the documented findings, disposition and treatment plan as described except to the extent set forth below.
[2017-06-28] MEDS: Ascorbic Acid 500 MG TABLET PO SCH ×2 (11:09→17:28)
[2017-06-28] MEDS: amLODIPine 5 MG TABLET PO SCH ×2 (11:09→20:21)
[2017-06-28] MEDS: Folic Acid 1 MG TABLET PO SCH (11:09)
[2017-06-28] MEDS: Multivit/Ca/Min/Fe/FA 1 TAB TABLET PO SCH (11:10)
[2017-06-28] MEDS: VILANTEROL TR IH SCH (11:11)
[2017-06-28] MEDS: UMECLIDINIUM BRM IH SCH (11:11)
[2017-06-28] MEDS: Nicotine 14 MG PATCH.TD24 TD SCH (12:56)
[2017-06-28] MEDS: *HR* Morphine 2 MG/ML SYRINGE IVP PRN (17:29)
[2017-06-28 20:22] VITALS: BP 121/73
== END 2017-06-28 21:54 | DRG 470 ==
LOC: 3NENU 09:00 → EMEROO 09:00 → 3NENU 13:18 → SUATTDRO 06-20 12:11
PROVIDERS: ADMIT Internal Medicine; ATTEND Internal Medicine

== ENCOUNTER 2017-07-19 13:56 | Inpatient (IN) ==
--- NOTE | 2017-07-19 14:08 | Emergency Department Note ---
Disposition Clinical Impression: Altered mental status, Primary cancer of right lung metastatic to other site Disposition: Admitted As Inpatient Condition: Undetermined General Adult HPI - General Chief complaint: ED Altered Mental Status Stated complaint: confusion Time Seen by Provider: 07/19/17 14:01 Source: patient Limitations: no limitations - History of Present Illness Pain Scale: 7 - Related Data Home Medications Medication Instructions Recorded Confirmed Albuterol Sulfate [Ventolin Hfa] 2 puff IH Q4H PRN 05/23/17 07/19/17 Umeclidinium Brm/Vilanterol Tr 1 puff IH DAILY 05/23/17 07/19/17 [Anoro Ellipta 62.5-25 Mcg INH] amLODIPine [Norvasc] 5 mg PO BID 05/23/17 07/19/17 Docusate [Colace] 100 mg PO BID PRN 06/18/17 07/19/17 Multivit-Min/FA/Lycopen/Lutein 1 each PO DAILY 07/11/17 07/19/17 [Centrum Silver Men Tablet] LORazepam [Ativan] 1 mg PO Q4HR PRN 07/19/17 07/19/17 Promethazine [Phenergan] 12.5 - 25 mg PO Q6HR PRN 07/19/17 07/19/17 Previous Rx's Medication Instructions Recorded Folic Acid 1 mg PO DAILY #30 tablet 06/05/17 HYDROcodone/Acet 5/325 mg [[place] 1 tab PO Q6H PRN #30 tab 07/11/17 5-325 mg] Allergies Allergy/AdvReac Type Severity Reaction Status Date / Time codeine Allergy Hives Verified 07/18/17 08:28 Past Medical History - Past Medical History Medical history: Reports: cancer, COPD, hypertension, other Surgical history: Reports: no surgical history, other Psychiatric history: Reports: no psych history - Social History Smoking Status: Current every day smoker Smokeless Tobacco Status: No Alcohol use: Reports: rarely Drug use: Reports: none Physical Exam - General Limitations: no limitations General appearance: alert, in no apparent distress Course Vital Signs Temperature 97.2 F L 07/19/17 13:58 Pulse Rate 97 07/19/17 13:58 Respiratory Rate 16 07/19/17 13:58 Blood Pressure 163/84 07/19/17 13:58 O2 Sat by Pulse Oximetry 99 07/19/17 13:58 Temperature 98.0 F 07/19/17 19:06 Pulse Rate 88 07/19/17 19:06 Respiratory Rate 18 07/19/17 19:06 Blood Pressure 136/87 07/19/17 19:06 O2 Sat by Pulse Oximetry 98 07/19/17 19:06 Oxygen Delivery Oxygen Delivery Room Air Medical Decision Making - Lab Data Result diagrams: 07/19/17 14:30 07/19/17 14:30 Lab Results 07/19/17 07/19/17 07/19/17 Range/Units 14:30 14:30 14:30 WBC 14.9 H (4.3-11.1) K/mcL RBC 3.50 L (4.19-5.50) M/mcL Hgb 11.1 L (12.9-16.9) g/dL Hct 32.4 L (37.5-50.1) % MCV 92.6 (83.0-100.0) fL MCH 31.7 (28.0-33.3) pg MCHC 34.3 (31.6-35.5) g/dL RDW 13.0 (11.5-14.5) % Plt Count 304 (140-400) K/mcL MPV 8.4 L (9.4-12.4) fL Immature Gran % 0.7 (0-4) % Seg Neutrophils % 89.0 % Lymphocytes % 3.0 % Monocytes % 7.1 % Eosinophils % 0.1 % Basophils % 0.1 % Neutrophils # 13.2 H (1.6-8.9) K/mcL Lymphocytes # 0.5 L (0.6-4.6) K/mcL Monocytes # 1.1 (0.0-1.3) K/mcL Eosinophils # 0.0 (0.0-0.6) K/mcL Basophils # 0.0 (0.0-0.2) K/mcL PT 11.3 (9.4-12.1) Seconds INR 1.1 APTT 31.6 (26.0-36.0) Seconds Sodium 126 L (136-145) mEq/L Potassium 4.1 (3.5-4.5) mEq/L Chloride 92 L (98-109) mEq/L Carbon Dioxide 26 (19-29) mEq/L BUN 15 (8-26) mg/dL Creatinine 0.69 L (0.72-1.25) mg/dL Est GFR ( Amer) > 60 (> 60) Est GFR (Non-Af Amer) > 60 (> 60) BUN/Creatinine Ratio 22 (6-26) Glucose 110 H (70-99) mg/dL Calculated Osmolality 263 L (280-300) Lactic Acid (0.5-2.2) mmol/L Calcium 9.5 (8.6-10.8) mg/dL Total Bilirubin 0.4 (0.2-1.2) mg/dL Direct Bilirubin 0.2 (0.0-0.5) mg/dL Indirect Bilirubin 0.2 (0.0-1.2) mg/dL AST 17 (5-34) Units/L ALT 18 (0-55) Units/L Alkaline Phosphatase 159 H (38-126) Units/L Troponin I (0-0.03) ng/mL Serum Total Protein 7.3 (6.0-8.3) g/dL Albumin 3.4 L (3.5-5.0) g/dL Globulin 3.9 H (2.4-3.5) g/dL Albumin/Globulin Ratio 0.9 L (1.1-2.2) TSH 0.643 (0.350-4.840) mcIU/mL Ur Specimen Adequacy Urine Color (Yellow) Urine Clarity (Clear) Urine pH (5.0-8.0) pH Units Ur Specific [place] (1.010-1.025) Urine Protein (Neg-Trace) mg/dL Urine Glucose (UA) (Normal) mg/dL Urine Ketones (Negative) mg/dL Urine Blood (Negative) Urine Nitrite (Negative) Urine Bilirubin (Negative) Urine Urobilinogen (Normal) mg/dL Ur Leukocyte Esterase (Negative) Urine Microscopic RBC (0-3) per hpf Urine Microscopic WBC (0-3) per hpf Ur Squamous Epith Cells (None-Few) per lpf Urine Bacteria (None-Few) per hpf Hyaline Casts (None-Few) per lpf Ur Culture Indicated? (NO) Urine Opiates Screen (Zjubsr=931) ng/mL Ur Barbiturates Screen (Zbicqq=784) ng/mL Ur Phencyclidine Scrn (Cutoff=25) ng/mL Ur Amphetamines Screen (Mscyiu=9920) ng/mL U Benzodiazepines Scrn (Zajrto=520) ng/mL Urine Cocaine Screen (Cutoff= 300) ng/mL U Marijuana (THC) Screen (Cutoff = 50) ng/mL Ethyl Alcohol < 10 (0-10) mg/dL 07/19/17 07/19/17 07/19/17 Range/Units 14:30 15:19 15:28 WBC (4.3-11.1) K/mcL RBC (4.19-5.50) M/mcL Hgb (12.9-16.9) g/dL Hct (37.5-50.1) % MCV (83.0-100.0) fL MCH (28.0-33.3) pg MCHC (31.6-35.5) g/dL RDW (11.5-14.5) % Plt Count (140-400) K/mcL MPV (9.4-12.4) fL Immature Gran % (0-4) % Seg Neutrophils % % Lymphocytes % % Monocytes % % Eosinophils % % Basophils % % Neutrophils # (1.6-8.9) K/mcL Lymphocytes # (0.6-4.6) K/mcL Monocytes # (0.0-1.3) K/mcL Eosinophils # (0.0-0.6) K/mcL Basophils # (0.0-0.2) K/mcL PT (9.4-12.1) Seconds INR APTT (26.0-36.0) Seconds Sodium (136-145) mEq/L Potassium (3.5-4.5) mEq/L Chloride (98-109) mEq/L Carbon Dioxide (19-29) mEq/L BUN (8-26) mg/dL Creatinine (0.72-1.25) mg/dL Est GFR ( Amer) (> 60) Est GFR (Non-Af Amer) (> 60) BUN/Creatinine Ratio (6-26) Glucose (70-99) mg/dL Calculated Osmolality (280-300) Lactic Acid 0.8 (0.5-2.2) mmol/L Calcium (8.6-10.8) mg/dL Total Bilirubin (0.2-1.2) mg/dL Direct Bilirubin (0.0-0.5) mg/dL Indirect Bilirubin (0.0-1.2) mg/dL AST (5-34) Units/L ALT (0-55) Units/L Alkaline Phosphatase (38-126) Units/L Troponin I 0.00 (0-0.03) ng/mL Serum Total Protein (6.0-8.3) g/dL Albumin (3.5-5.0) g/dL Globulin (2.4-3.5) g/dL Albumin/Globulin Ratio (1.1-2.2) TSH (0.350-4.840) mcIU/mL Ur Specimen Adequacy See below A Urine Color Yellow (Yellow) Urine Clarity Clear (Clear) Urine pH 7.0 (5.0-8.0) pH Units Ur Specific [place] 1.010 (1.010-1.025) Urine Protein Negative (Neg-Trace) mg/dL Urine Glucose (UA) Normal (Normal) mg/dL Urine Ketones Negative (Negative) mg/dL Urine Blood Negative (Negative) Urine Nitrite Negative (Negative) Urine Bilirubin Negative (Negative) Urine Urobilinogen Normal (Normal) mg/dL Ur Leukocyte Esterase Moderate H (Negative) Urine Microscopic RBC 0-3 (0-3) per hpf Urine Microscopic WBC 5-15 H (0-3) per hpf Ur Squamous Epith Cells Few (None-Few) per lpf Urine Bacteria Few (None-Few) per hpf Hyaline Casts None Seen (None-Few) per lpf Ur Culture Indicated? YES A (NO) Urine Opiates Screen (Ardjqi=582) ng/mL Ur Barbiturates Screen (Mmabam=549) ng/mL Ur Phencyclidine Scrn (Cutoff=25) ng/mL Ur Amphetamines Screen (Pznkzt=9436) ng/mL U Benzodiazepines Scrn (Ycuhdg=072) ng/mL Urine Cocaine Screen (Cutoff= 300) ng/mL U Marijuana (THC) Screen (Cutoff = 50) ng/mL Ethyl Alcohol (0-10) mg/dL 07/19/17 Range/Units 15:28 WBC (4.3-11.1) K/mcL RBC (4.19-5.50) M/mcL Hgb (12.9-16.9) g/dL Hct (37.5-50.1) % MCV (83.0-100.0) fL MCH (28.0-33.3) pg MCHC (31.6-35.5) g/dL RDW (11.5-14.5) % Plt Count (140-400) K/mcL MPV (9.4-12.4) fL Immature Gran % (0-4) % Seg Neutrophils % % Lymphocytes % % Monocytes % % Eosinophils % % Basophils % % Neutrophils # (1.6-8.9) K/mcL Lymphocytes # (0.6-4.6) K/mcL Monocytes # (0.0-1.3) K/mcL Eosinophils # (0.0-0.6) K/mcL Basophils # (0.0-0.2) K/mcL PT (9.4-12.1) Seconds INR APTT (26.0-36.0) Seconds Sodium (136-145) mEq/L Potassium (3.5-4.5) mEq/L Chloride (98-109) mEq/L Carbon Dioxide (19-29) mEq/L BUN (8-26) mg/dL Creatinine (0.72-1.25) mg/dL Est GFR ( Amer) (> 60) Est GFR (Non-Af Amer) (> 60) BUN/Creatinine Ratio (6-26) Glucose (70-99) mg/dL Calculated Osmolality (280-300) Lactic Acid (0.5-2.2) mmol/L Calcium (8.6-10.8) mg/dL Total Bilirubin (0.2-1.2) mg/dL Direct Bilirubin (0.0-0.5) mg/dL Indirect Bilirubin (0.0-1.2) mg/dL AST (5-34) Units/L ALT (0-55) Units/L Alkaline Phosphatase (38-126) Units/L Troponin I (0-0.03) ng/mL Serum Total Protein (6.0-8.3) g/dL Albumin (3.5-5.0) g/dL Globulin (2.4-3.5) g/dL Albumin/Globulin Ratio (1.1-2.2) TSH (0.350-4.840) mcIU/mL Ur Specimen Adequacy Urine Color (Yellow) Urine Clarity (Clear) Urine pH (5.0-8.0) pH Units Ur Specific [place] (1.010-1.025) Urine Protein (Neg-Trace) mg/dL Urine Glucose (UA) (Normal) mg/dL Urine Ketones (Negative) mg/dL Urine Blood (Negative) Urine Nitrite (Negative) Urine Bilirubin (Negative) Urine Urobilinogen (Normal) mg/dL Ur Leukocyte Esterase (Negative) Urine Microscopic RBC (0-3) per hpf Urine Microscopic WBC (0-3) per hpf Ur Squamous Epith Cells (None-Few) per lpf Urine Bacteria (None-Few) per hpf Hyaline Casts (None-Few) per lpf Ur Culture Indicated? (NO) Urine Opiates Screen Negative (Qpxxec=751) ng/mL Ur Barbiturates Screen Negative (Knfmfk=681) ng/mL Ur Phencyclidine Scrn Negative (Cutoff=25) ng/mL Ur Amphetamines Screen Negative (Wbtswz=5730) ng/mL U Benzodiazepines Scrn Negative (Etygnp=326) ng/mL Urine Cocaine Screen Negative (Cutoff= 300) ng/mL U Marijuana (THC) Screen Negative (Cutoff = 50) ng/mL Ethyl Alcohol (0-10) mg/dL Attestation Statement - Attestation Attestation: I examined this patient and my medical decision-making was reviewed with the Resident Physician. I agree with the documented findings, disposition and treatment plan as described except to the extent set forth below. Status post time provided in conjunction with the resident physician Dr. De Luna Patient presents by EMS with reports of confusion. He appears in no acute distress on exam
--- NOTE | 2017-07-19 14:28 | Emergency Department Note ---
Disposition Clinical Impression: Primary cancer of right lung metastatic to other site Altered mental status Qualifiers: Altered mental status type: delirium Qualified Code(s): R41.0 - Disorientation , unspecified Disposition: Admitted As Inpatient Condition: Undetermined Referrals: Dario Díaz DO [Primary Care Provider] - Forms: ED Satisfaction Letter Time of Disposition: 16:32 Altered Mental Status HPI - General Chief Complaint: ED Altered Mental Status Stated Complaint: confusion Time Seen by Provider: 07/19/17 14:01 Source: patient Mode of arrival: EMS Limitations: no limitations Nursing Notes Reviewed: Yes Vital Signs Reviewed: Yes - History of Present Illness HPI Narrative: 66-year-old male with recent diagnosis of lung cancer and multiple metastasis arrives to [facility] emergency department with intermittent , waxing and waning episodes of delirium/dementia. The patient was recently diagnosed with this metastasis cancer. The patient received chemotherapy one day ago. He was due for another dose of chemotherapy today and was very confused with what is going on according to his . The patient's states that over the course of the past few weeks he has become increasingly more confused intermittently and states that he gets very worked up over 1 subject and then it completely wanes. The patient denies any complaints at this time but knows that something is occurring. The patient has a previous physician and is very aware that he is not quite acting like himself. The patient denies any abdominal pain, fever, chills, headache, weakness. MD complaint: altered mental status Onset (ago): week(s) (2-3) Timing confirmed by: spouse Pain Severity: mild Consistency of Symptoms: waxing and waning Context: cancer Associated symptoms: Reports: denies other symptoms - Related Data Home Medications Medication Instructions Recorded Confirmed Albuterol Sulfate [Ventolin Hfa] 2 puff IH Q4H PRN 05/23/17 07/19/17 Umeclidinium Brm/Vilanterol Tr 1 puff IH DAILY 05/23/17 07/19/17 [Anoro Ellipta 62.5-25 Mcg INH] amLODIPine [Norvasc] 5 mg PO BID 05/23/17 07/19/17 Docusate [Colace] 100 mg PO BID PRN 06/18/17 07/19/17 Multivit-Min/FA/Lycopen/Lutein 1 each PO DAILY 07/11/17 07/19/17 [Centrum Silver Men Tablet] LORazepam [Ativan] 1 mg PO Q4HR PRN 07/19/17 07/19/17 Promethazine [Phenergan] 12.5 - 25 mg PO Q6HR PRN 07/19/17 07/19/17 Previous Rx's Medication Instructions Recorded Folic Acid 1 mg PO DAILY #30 tablet 06/05/17 HYDROcodone/Acet 5/325 mg [[place] 1 tab PO Q6H PRN #30 tab 07/11/17 5-325 mg] Allergies Allergy/AdvReac Type Severity Reaction Status Date / Time codeine Allergy Hives Verified 07/18/17 08:28 All systems ED: reviewed and negative except as stated. Constitutional: Denies: fever, chills, weakness Cardiovascular: Denies: chest pain, palpitations, dyspnea on exertion Respiratory: Denies: cough, dyspnea, wheezes Gastrointestinal: Denies: abdominal pain, nausea, vomiting Genitourinary: Denies: urgency, dysuria Musculoskeletal: Denies: back pain, neck pain, arthralgia, myalgia Neurological: Reports: confusion. Denies: headache, weakness, numbness, paresthesias, abnormal gait, vertigo Psychiatric: Reports: anxiety, other (Paranoia). Denies: depression, suicidal thoughts, homicidal thoughts, auditory hallucinations, visual hallucinations Past Medical History - Past Medical History Attestation: Yes The following information was validated with the patient. Source: patient, obtained from family Medical history: Reports: cancer, COPD, hypertension, other Surgical history: Reports: no surgical history, other Psychiatric history: Reports: no psych history - Social History Smoking Status: Current every day smoker Smokeless Tobacco Status: No Alcohol use: Reports: rarely Drug use: Reports: none Physical Exam - General Limitations: no limitations General appearance: alert, in no apparent distress - Head Head exam: atraumatic, normocephalic, normal inspection - Eye Eye exam: Present: normal appearance, PERRL, EOMI - ENT ENT exam: normal exam, normal oropharynx, mucous membranes moist - Neck Neck exam: Present: normal inspection, full ROM, trachea midline - Chest Chest inspection: Present: normal inspection, symmetric chest wall rise - Respiratory Respiratory exam: Present: normal lung sounds bilaterally - Cardiovascular Cardiovascular exam: Present: regular rate, normal rhythm, normal heart sounds - Abdominal Exam Abdominal exam: Present: soft, Non-Tender. Absent: tenderness, distention, guarding, rebound, rigidity - Extremities Exam Extremities exam: Present: normal inspection, full ROM. Absent: tenderness, pedal edema - Neurological Exam Neurological exam: Present: alert, oriented X3, CN II-XII intact, normal gait - Expanded Neurological Exam Patient oriented to: Present: person, place, time Speech: Present: fluid speech Cranial nerves: EOM function (II, III, IV, ): Normal, facial sensation (V): Normal, facial palsy (VII): Normal Cerebellar function: normal gait Motor strength - LUE: 5/5 Motor strength - RUE: 5/5 Motor strength - LLE: 5/5 Motor strength - RLE: 5/5 Sensory exam upper extremity: light touch: Normal Sensory exam lower extremity: light touch: Normal Coma Scale Eye Opening: Spontaneous Coma Scale Motor Response: Obeys Commands Coma Scale Verbal Response: Oriented Coma Scale Total: 15 Course - Reevaluation(s) Reevaluation #1: Patient's family expressed concern that they did not feel comfortable taking care of patient at home due to agitation as well as confusion. We will speak to the oncologist regional planner after labs return. We will likely admit the patient for further work-up. Time: 15:27 - Consultations Consultation #1: After speaking with oncology, Dr. Leiva, he no further recommendations. He agreed that the patient would benefit from admission for further care and workup. Time: 15:54 Vital Signs Temperature 97.2 F L 07/19/17 13:58 Pulse Rate 97 07/19/17 13:58 Respiratory Rate 16 07/19/17 13:58 Blood Pressure 163/84 07/19/17 13:58 O2 Sat by Pulse Oximetry 99 07/19/17 13:58 Temperature 97.2 F L 07/19/17 13:58 Pulse Rate 84 07/19/17 15:48 Respiratory Rate 16 07/19/17 15:48 Blood Pressure 153/94 07/19/17 15:48 O2 Sat by Pulse Oximetry 100 07/19/17 15:48 Oxygen Delivery Oxygen Delivery Room Air Altered Mental Status - MDM Narrative Medical decision making narrative: Patient's expressed concern for patient's safety at home. Given the patient's alteration of mentation and worsening symptoms, we will admit the patient to the hospitalist. The patient denies any other complaints at this time. He is able to answer most questions correctly but does seem to have some delirium. Patient does have a mild leukocytosis and a left shift without any known source at this time. Urinalysis is negative. The patient denies any cough or difficulty breathing. Patient's abdominal exam is benign. We will admit the patient for observation given his mental status and for further care. Patient does not have any nuchal rigidity and we are not concerned about meningitis at this time. We spoke with oncology regional planner in the if they agree that the patient would benefit from admission. We will admit the patient to the hospitalist service at this time. Accepted by Dr. Staley. Dr. Staley requested 1 g of Rocephin due to white blood cells in the urine. - Lab Data Lab results reviewed: Yes I reviewed the patient's lab results. Result diagrams: 07/19/17 14:30 07/19/17 14:30 Lab Results 07/19/17 07/19/17 07/19/17 Range/Units 14:30 14:30 14:30 WBC 14.9 H (4.3-11.1) K/mcL RBC 3.50 L (4.19-5.50) M/mcL Hgb 11.1 L (12.9-16.9) g/dL Hct 32.4 L (37.5-50.1) % MCV 92.6 (83.0-100.0) fL MCH 31.7 (28.0-33.3) pg MCHC 34.3 (31.6-35.5) g/dL RDW 13.0 (11.5-14.5) % Plt Count 304 (140-400) K/mcL MPV 8.4 L (9.4-12.4) fL Immature Gran % 0.7 (0-4) % Seg Neutrophils % 89.0 % Lymphocytes % 3.0 % Monocytes % 7.1 % Eosinophils % 0.1 % Basophils % 0.1 % Neutrophils # 13.2 H (1.6-8.9) K/mcL Lymphocytes # 0.5 L (0.6-4.6) K/mcL Monocytes # 1.1 (0.0-1.3) K/mcL Eosinophils # 0.0 (0.0-0.6) K/mcL Basophils # 0.0 (0.0-0.2) K/mcL PT 11.3 (9.4-12.1) Seconds INR 1.1 APTT 31.6 (26.0-36.0) Seconds Sodium 126 L (136-145) mEq/L Potassium 4.1 (3.5-4.5) mEq/L Chloride 92 L (98-109) mEq/L Carbon Dioxide 26 (19-29) mEq/L BUN 15 (8-26) mg/dL Creatinine 0.69 L (0.72-1.25) mg/dL Est GFR ( Amer) > 60 (> 60) Est GFR (Non-Af Amer) > 60 (> 60) BUN/Creatinine Ratio 22 (6-26) Glucose 110 H (70-99) mg/dL Calculated Osmolality 263 L (280-300) Lactic Acid (0.5-2.2) mmol/L Calcium 9.5 (8.6-10.8) mg/dL Total Bilirubin 0.4 (0.2-1.2) mg/dL Direct Bilirubin 0.2 (0.0-0.5) mg/dL Indirect Bilirubin 0.2 (0.0-1.2) mg/dL AST 17 (5-34) Units/L ALT 18 (0-55) Units/L Alkaline Phosphatase 159 H (38-126) Units/L Troponin I (0-0.03) ng/mL Serum Total Protein 7.3 (6.0-8.3) g/dL Albumin 3.4 L (3.5-5.0) g/dL Globulin 3.9 H (2.4-3.5) g/dL Albumin/Globulin Ratio 0.9 L (1.1-2.2) TSH 0.643 (0.350-4.840) mcIU/mL Ur Specimen Adequacy Urine Color (Yellow) Urine Clarity (Clear) Urine pH (5.0-8.0) pH Units Ur Specific Sixes (1.010-1.025) Urine Protein (Neg-Trace) mg/dL Urine Glucose (UA) (Normal) mg/dL Urine Ketones (Negative) mg/dL Urine Blood (Negative) Urine Nitrite (Negative) Urine Bilirubin (Negative) Urine Urobilinogen (Normal) mg/dL Ur Leukocyte Esterase (Negative) Urine Microscopic RBC (0-3) per hpf Urine Microscopic WBC (0-3) per hpf Ur Squamous Epith Cells (None-Few) per lpf Urine Bacteria (None-Few) per hpf Hyaline Casts (None-Few) per lpf Ur Culture Indicated? (NO) Urine Opiates Screen (Ftfkzv=225) ng/mL Ur Barbiturates Screen (Ukwwhm=726) ng/mL Ur Phencyclidine Scrn (Cutoff=25) ng/mL Ur Amphetamines Screen (Eigfro=7016) ng/mL U Benzodiazepines Scrn (Xwdswi=178) ng/mL Urine Cocaine Screen (Cutoff= 300) ng/mL U Marijuana (THC) Screen (Cutoff = 50) ng/mL Ethyl Alcohol < 10 (0-10) mg/dL 07/19/17 07/19/17 07/19/17 Range/Units 14:30 15:19 15:28 WBC (4.3-11.1) K/mcL RBC (4.19-5.50) M/mcL Hgb (12.9-16.9) g/dL Hct (37.5-50.1) % MCV (83.0-100.0) fL MCH (28.0-33.3) pg MCHC (31.6-35.5) g/dL RDW (11.5-14.5) % Plt Count (140-400) K/mcL MPV (9.4-12.4) fL Immature Gran % (0-4) % Seg Neutrophils % % Lymphocytes % % Monocytes % % Eosinophils % % Basophils % % Neutrophils # (1.6-8.9) K/mcL Lymphocytes # (0.6-4.6) K/mcL Monocytes # (0.0-1.3) K/mcL Eosinophils # (0.0-0.6) K/mcL Basophils # (0.0-0.2) K/mcL PT (9.4-12.1) Seconds INR APTT (26.0-36.0) Seconds Sodium (136-145) mEq/L Potassium (3.5-4.5) mEq/L Chloride (98-109) mEq/L Carbon Dioxide (19-29) mEq/L BUN (8-26) mg/dL Creatinine (0.72-1.25) mg/dL Est GFR ( Amer) (> 60) Est GFR (Non-Af Amer) (> 60) BUN/Creatinine Ratio (6-26) Glucose (70-99) mg/dL Calculated Osmolality (280-300) Lactic Acid 0.8 (0.5-2.2) mmol/L Calcium (8.6-10.8) mg/dL Total Bilirubin (0.2-1.2) mg/dL Direct Bilirubin (0.0-0.5) mg/dL Indirect Bilirubin (0.0-1.2) mg/dL AST (5-34) Units/L ALT (0-55) Units/L Alkaline Phosphatase (38-126) Units/L Troponin I 0.00 (0-0.03) ng/mL Serum Total Protein (6.0-8.3) g/dL Albumin (3.5-5.0) g/dL Globulin (2.4-3.5) g/dL Albumin/Globulin Ratio (1.1-2.2) TSH (0.350-4.840) mcIU/mL Ur Specimen Adequacy See below A Urine Color Yellow (Yellow) Urine Clarity Clear (Clear) Urine pH 7.0 (5.0-8.0) pH Units Ur Specific Sixes 1.010 (1.010-1.025) Urine Protein Negative (Neg-Trace) mg/dL Urine Glucose (UA) Normal (Normal) mg/dL Urine Ketones Negative (Negative) mg/dL Urine Blood Negative (Negative) Urine Nitrite Negative (Negative) Urine Bilirubin Negative (Negative) Urine Urobilinogen Normal (Normal) mg/dL Ur Leukocyte Esterase Moderate H (Negative) Urine Microscopic RBC 0-3 (0-3) per hpf Urine Microscopic WBC 5-15 H (0-3) per hpf Ur Squamous Epith Cells Few (None-Few) per lpf Urine Bacteria Few (None-Few) per hpf Hyaline Casts None Seen (None-Few) per lpf Ur Culture Indicated? YES A (NO) Urine Opiates Screen (Dkkqml=776) ng/mL Ur Barbiturates Screen (Lxxqna=026) ng/mL Ur Phencyclidine Scrn (Cutoff=25) ng/mL Ur Amphetamines Screen (Ykzllb=8978) ng/mL U Benzodiazepines Scrn (Epgkng=840) ng/mL Urine Cocaine Screen (Cutoff= 300) ng/mL U Marijuana (THC) Screen (Cutoff = 50) ng/mL Ethyl Alcohol (0-10) mg/dL 07/19/17 Range/Units 15:28 WBC (4.3-11.1) K/mcL RBC (4.19-5.50) M/mcL Hgb (12.9-16.9) g/dL Hct (37.5-50.1) % MCV (83.0-100.0) fL MCH (28.0-33.3) pg MCHC (31.6-35.5) g/dL RDW (11.5-14.5) % Plt Count (140-400) K/mcL MPV (9.4-12.4) fL Immature Gran % (0-4) % Seg Neutrophils % % Lymphocytes % % Monocytes % % Eosinophils % % Basophils % % Neutrophils # (1.6-8.9) K/mcL Lymphocytes # (0.6-4.6) K/mcL Monocytes # (0.0-1.3) K/mcL Eosinophils # (0.0-0.6) K/mcL Basophils # (0.0-0.2) K/mcL PT (9.4-12.1) Seconds INR APTT (26.0-36.0) Seconds Sodium (136-145) mEq/L Potassium (3.5-4.5) mEq/L Chloride (98-109) mEq/L Carbon Dioxide (19-29) mEq/L BUN (8-26) mg/dL Creatinine (0.72-1.25) mg/dL Est GFR ( Amer) (> 60) Est GFR (Non-Af Amer) (> 60) BUN/Creatinine Ratio (6-26) Glucose (70-99) mg/dL Calculated Osmolality (280-300) Lactic Acid (0.5-2.2) mmol/L Calcium (8.6-10.8) mg/dL Total Bilirubin (0.2-1.2) mg/dL Direct Bilirubin (0.0-0.5) mg/dL Indirect Bilirubin (0.0-1.2) mg/dL AST (5-34) Units/L ALT (0-55) Units/L Alkaline Phosphatase (38-126) Units/L Troponin I (0-0.03) ng/mL Serum Total Protein (6.0-8.3) g/dL Albumin (3.5-5.0) g/dL Globulin (2.4-3.5) g/dL Albumin/Globulin Ratio (1.1-2.2) TSH (0.350-4.840) mcIU/mL Ur Specimen Adequacy Urine Color (Yellow) Urine Clarity (Clear) Urine pH (5.0-8.0) pH Units Ur Specific Sixes (1.010-1.025) Urine Protein (Neg-Trace) mg/dL Urine Glucose (UA) (Normal) mg/dL Urine Ketones (Negative) mg/dL Urine Blood (Negative) Urine Nitrite (Negative) Urine Bilirubin (Negative) Urine Urobilinogen (Normal) mg/dL Ur Leukocyte Esterase (Negative) Urine Microscopic RBC (0-3) per hpf Urine Microscopic WBC (0-3) per hpf Ur Squamous Epith Cells (None-Few) per lpf Urine Bacteria (None-Few) per hpf Hyaline Casts (None-Few) per lpf Ur Culture Indicated? (NO) Urine Opiates Screen Negative (Tleruw=296) ng/mL Ur Barbiturates Screen Negative (Peytaj=628) ng/mL Ur Phencyclidine Scrn Negative (Cutoff=25) ng/mL Ur Amphetamines Screen Negative (Fyjgxf=4376) ng/mL U Benzodiazepines Scrn Negative (Fmgpjh=956) ng/mL Urine Cocaine Screen Negative (Cutoff= 300) ng/mL U Marijuana (THC) Screen Negative (Cutoff = 50) ng/mL Ethyl Alcohol (0-10) mg/dL - Radiology Data Radiology results reviewed: Yes I reviewed the patient's radiology results. - EKG Data EKG attestation: Yes I reviewed and interpreted this EKG. EKG results narrative: Heart rate 93 bpm. AR interval 156 ms. QTc 412 ms. Normal axis. Normal sinus rhythm. No ST elevation or ST depression noted. No previous EKG. TPA Checklist - LKW: 3-4.5 hrs Add. Warnings/Precautions Patient/family understanding: The patient/family members have been counseled and understood the risk, benefit , and alternatives of treatment.
[2017-07-19 14:42] LABS: Basophils % 0.1 %; Eosinophils % 0.1 %; Hematocrit 32.4 % (37.5-50.1); Hemoglobin 11.1 g/dL (12.9-16.9); Immature Granulocytes % 0.7 % (0-4); Lymphocytes # 0.5 K/mcL (0.6-4.6); Mean Corpuscular HGB Conc 34.3 g/dL (31.6-35.5); Mean Corpuscular Hemoglobin 31.7 pg (28.0-33.3); Mean Corpuscular Volume 92.6 fL (83.0-100.0); Mean Platelet Volume 8.4 fL (9.4-12.4); Monocytes # 1.1 K/mcL (0.0-1.3); Monocytes % 7.1 %; Neutrophils # 13.2 K/mcL (1.6-8.9); Platelet Count 304 K/mcL (140-400)
[2017-07-19 14:48] LABS: INR 1.1; Prothrombin Time 11.3 Seconds (9.4-12.1)
[2017-07-19 14:50] LABS: Activated Partial Thrombo Time 31.6 Seconds (26.0-36.0)
[2017-07-19 14:58] LABS: Alanine Aminotransferase 18 Units/L (0-55); Albumin 3.4 g/dL (3.5-5.0); Albumin/Globulin Ratio 0.9 (1.1-2.2); Alkaline Phosphatase 159 Units/L (38-126); Aspartate Amino Transferase 17 Units/L (5-34); BUN/Creatinine Ratio 22 (6-26); Bilirubin,Direct 0.2 mg/dL (0.0-0.5); Bilirubin,Indirect 0.2 mg/dL (0.0-1.2); Bilirubin,Total 0.4 mg/dL (0.2-1.2); Blood Urea Nitrogen 15 mg/dL (8-26); Calcium 9.5 mg/dL (8.6-10.8); Carbon Dioxide 26 mEq/L (19-29); Chloride 92 mEq/L (98-109); Globulin 3.9 g/dL (2.4-3.5); Glucose 110 mg/dL (70-99); Osmolality,Calculated 263 (280-300); Potassium 4.1 mEq/L (3.5-4.5); Sodium 126 mEq/L (136-145); Total Protein 7.3 g/dL (6.0-8.3); eGFR For African Americans > 60 (> 60); eGFR For Non-African Americans > 60 (> 60)
[2017-07-19 15:02] LABS: Ethanol < 10 mg/dL (0-10)
[2017-07-19] MEDS ORDERED: *HR* LORazepam 0.5 MG TABLET PO ONE (15:27)
[2017-07-19 15:40] LABS: Thyroid Stimulating Hormone 0.643 mcIU/mL (0.350-4.840)
[2017-07-19 15:47] LABS: Bilirubin,Urine Negative (Negative); Blood,Urine Negative (Negative); Color,Urine Yellow (Yellow); Glucose,Urine (UA) Normal (Normal); Ketones,Urine Negative (Negative); Leukocyte Esterase,Urine Moderate (Negative); Nitrite,Urine Negative (Negative); Protein,Urine Negative (Neg-Trace); Urobilinogen,Urine Normal (Normal)
[2017-07-19 15:50] LABS: Clarity,Urine Clear (Clear)
[2017-07-19 15:51] LABS: Amphetamine Screen,Urine Negative ng/mL (Cutoff=1000); Barbiturate Screen,Urine Negative ng/mL (Cutoff=200); Benzodiazepines Screen,Urine Negative ng/mL (Cutoff=200); Cannabinoid Screen,Urine Negative ng/mL (Cutoff = 50); Cocaine Screen,Urine Negative ng/mL (Cutoff= 300); Opiate Screen,Urine Negative ng/mL (Cutoff=300); Phencyclidine Screen,Urine Negative ng/mL (Cutoff=25)
[2017-07-19 16:02] LABS: RBC,Urine 0-3 per hpf (0-3)
[2017-07-19 16:03] LABS: Bacteria,Urine Few per hpf (None-Few); Hyaline Casts,Urine None Seen per lpf (None-Few); Squamous Epithelial Cell,Urine Few per lpf (None-Few)
[2017-07-19] MEDS ORDERED: *HR* Morphine 2 MG/ML SYRINGE IVP PRN (19:52)
[2017-07-19] MEDS ORDERED: MOM Conc 10 ML UD.LIQ PO PRN (19:52)
[2017-07-19] MEDS ORDERED: Naloxone 0.4 MG/ML INJ IVP PRN (19:52)
[2017-07-19] MEDS ORDERED: *HR* HYDROcodone/Acet 5/325 mg TABLET PO PRN (19:52)
[2017-07-19] MEDS ORDERED: Ondansetron 4 MG/2 ML VIAL IVP PRN (19:52)
[2017-07-19] MEDS ORDERED: *HR* Promethazine 25 MG/ML VIAL IVP PRN (19:52)
[2017-07-19] MEDS ORDERED: *HR* LORazepam 1 MG TABLET PO PRN (19:56)
[2017-07-19] MEDS ORDERED: Ipratropium/Albuterol Neb 3 ML IH PRN (20:13)
[2017-07-19] MEDS: amLODIPine 5 MG TABLET PO SCH (20:50)
[2017-07-19] MEDS: Acetaminophen 325 MG TABLET PO PRN (20:50)
[2017-07-19] MEDS: Famotidine 20 MG TABLET PO SCH (20:50)
[2017-07-19] MEDS: 0.9 % Sodium Chloride 1,000 ML IVC SCH (20:52)
--- NOTE | 2017-07-19 22:26 | Internal Med History&Physical ---
Date of Encounter: 07/19/17 Time of Encounter: 20:45 Assessment and Plan (1) Altered mental status Current visit: Yes Status: Acute Will admit the pt into Tele His AMS mostly due to metabolic and toxic encephalopathy with dehydration and possible UTI Reviewed CT of head - no acute changes Cont close monitoring cont Iv hydration sent for urine cx started him on empirical abx Rocephin will consult his Heme Onc in AM Qualifiers: Altered mental status type: delirium Qualified Code(s): R41.0 - Disorientation, unspecified (2) UTI (urinary tract infection) Current visit: Yes Status: Acute Reviewed UA showing WBC and few bacteria started him on empirical abx Rocephin sent for Urine cx Qualifiers: Qualified Code(s): N39.0 - Urinary tract infection, site not specified (3) Hyponatremia Current visit: No Status: Acute Does have chronic hyponatremia however he looks little dehydrated today, so will start him on IV hydration His Heme Onc just started him on NaCl tabs, will continue them here (4) Primary cancer of right lung metastatic to other site Current visit: Yes Status: Chronic f.u with heme Onc (5) COPD (chronic obstructive pulmonary disease) Current visit: No Status: Chronic not in exacerbation cont bronchodilators PRN Qualifiers: COPD type: unspecified COPD Qualified Code(s): J44.9 - Chronic obstructive pulmonary disease, unspecified (6) Protein-calorie malnutrition, severe Current visit: Yes Status: Acute He does look failure to thrive resumed his home med Marinol Consulted gasket supervisor for calorie count check pre albumin level ordered Ensure with each meal (7) DVT prophylaxis Current visit: No Status: Acute on Lovenox SQ Internal Medicine - H&P: HPI Chief complaint: Confusion / UTI Admitted From: Emergency Dept Plans for Post Hospital Care: Home History of present illness: Mr. Santoyo is a 66 year old male with knwon PMH of HTN, COPD and recent diagnosis of metastatic [place] carcinoma of Rt lower lung who is going for chemo therapy started y/d now he was brought into [facility] emergency department by stating he has been having intermittent, waxing and waning episodes of delirium/dementia. The patient received chemotherapy one day ago. He was due for another dose of chemotherapy today and was very confused with what is going on according to his . The patient's states that over the course of the past few weeks he has become increasingly more confused intermittently and states that he gets very worked up over 1 subject and then it completely wanes. He is more alert, awake and O x 3now, however he looks very lethargic and weak. The patient denies any abdominal pain , fever, chills, and headache Past Med Surg Social Fam HX - Past Medical History Medical history: cancer, COPD, hypertension, other Psychiatric history: no psych history - Past Surgical History Surgical History: no surgical history, other - Social History Smoking Status: Current every day smoker Packs per day: 1 Smokeless Tobacco Status: No Alcohol use: rarely Drug use: none - Family History Brother Living Status: Hx Family Cancer: Yes Grandmother Living Status: Hx Family Cancer: Yes Grandfather Living Status: Hx Family Cancer: Yes Father Living Status: Age at : 93 Cause of : "old age" Hx Family Cardiac Disorders: No Hx Family Cancer: No Hx Family Genitourinary Disorders: Yes Hx Family Medical Disorders: Yes Internal Medicine - H&P: Meds Albuterol Sulfate [Ventolin Hfa] 2 puff IH Q4H PRN 05/23/17 [History] Umeclidinium Brm/Vilanterol Tr [Anoro Ellipta 62.5-25 Mcg INH] 1 puff IH DAILY 05/23/17 [History] amLODIPine [Norvasc] 5 mg PO BID 05/23/17 [History] Folic Acid 1 mg PO DAILY #30 tablet 06/05/17 [Rx] Docusate [Colace] 100 mg PO BID PRN 06/18/17 [History] HYDROcodone/Acet 5/325 mg [[place] 5-325 mg] 1 tab PO Q6H PRN #30 tab 07/11/17 [Rx ] Multivit-Min/FA/Lycopen/Lutein [Centrum Silver Men Tablet] 1 each PO DAILY 07/11 [History] LORazepam [Ativan] 1 mg PO Q4HR PRN 07/19/17 [History] Promethazine [Phenergan] 12.5 - 25 mg PO Q6HR PRN 07/19/17 [History] 3 Allergy/AdvReac Type Severity Reaction Status Date / Time codeine Allergy Hives Verified 07/18/17 08:28 All Systems PM: A 10-system review of systems was performed and is negative for pertinent findings except as documented above in the HPI. Review of systems: All the systems are reviewed everything is benign except the systems and symptoms I mentioned in the history of present illness - Constitutional Vitals: Temp Pulse Resp BP Pulse Ox 98.0 F 88 18 136/87 98 07/19/17 19:06 07/19/17 19:06 07/19/17 19:06 07/19/17 19:06 07/19/17 19:06 General appearance: Present: A&O X 3, no acute distress, answers questions appropriately - Head Head exam: Present: atraumatic, normal inspection - Respiratory Respiratory exam: Present: decreased breath sounds, wheezes. Absent: rales, respiratory distress, rhonchi - Cardiovascular Cardiovascular exam: Present: RRR, +S1, +S2. Absent: diastolic murmur, gallop, rubs, systolic murmur - GI/Abdominal GI/Abdominal exam: Present: normal bowel sounds, soft. Absent: rebound, rigid, tenderness - Extremities Exam Extremities exam: Present: pedal edema (1 +). Absent: calf tenderness, tenderness - Back Exam Back exam: Absent: CVA tenderness (L), CVA tenderness (R) - Neurological Exam Neurological exam: Present: alert, altered (slightly), oriented X3 - Psychiatric Psychiatric exam: Present: anxious - Skin Skin exam: Present: dry. Absent: rash Internal Med - H&P Results - Labs CBC & Chem 7: 07/19/17 14:30 07/19/17 14:30
[2017-07-20 04:56] LABS: Basophils % 0.2 %; Eosinophils # 0.1 K/mcL (0.0-0.6); Eosinophils % 0.5 %; Hematocrit 29.8 % (37.5-50.1); Hemoglobin 10.2 g/dL (12.9-16.9); Immature Granulocytes % 0.6 % (0-4); Lymphocytes # 0.5 K/mcL (0.6-4.6); Lymphocytes % 3.3 %; Mean Corpuscular HGB Conc 34.2 g/dL (31.6-35.5); Mean Corpuscular Hemoglobin 31.9 pg (28.0-33.3); Mean Corpuscular Volume 93.1 fL (83.0-100.0); Mean Platelet Volume 8.7 fL (9.4-12.4); Monocytes # 0.3 K/mcL (0.0-1.3); Monocytes % 2.2 %; Neutrophils # 14.4 K/mcL (1.6-8.9); Platelet Count 248 K/mcL (140-400); Red Cell Distribution Width 13.1 % (11.5-14.5); Segmented Neutrophils % 93.2 %
[2017-07-20 05:14] LABS: Alanine Aminotransferase 16 Units/L (0-55); Albumin 2.8 g/dL (3.5-5.0); Albumin/Globulin Ratio 0.9 (1.1-2.2); Alkaline Phosphatase 133 Units/L (38-126); Aspartate Amino Transferase 15 Units/L (5-34); BUN/Creatinine Ratio 19 (6-26); Bilirubin,Total 0.4 mg/dL (0.2-1.2); Blood Urea Nitrogen 13 mg/dL (8-26); Calcium 8.7 mg/dL (8.6-10.8); Carbon Dioxide 23 mEq/L (19-29); Chloride 97 mEq/L (98-109); Globulin 3.1 g/dL (2.4-3.5); Glucose 84 mg/dL (70-99); Magnesium 1.5 mg/dL (1.6-2.6); Osmolality,Calculated 267 (280-300); Phosphorous 3.6 mg/dL (2.3-4.7); Sodium 129 mEq/L (136-145); Total Protein 5.9 g/dL (6.0-8.3); eGFR For African Americans > 60 (> 60); eGFR For Non-African Americans > 60 (> 60)
[2017-07-20] MEDS: *HR* Enoxaparin 40 MG/0.4 ML SYRINGE SQ SCH (06:45)
[2017-07-20] MEDS: (Umeclidinium Brm/Vilanterol Tr [Anoro Ellipta 62.5-2 IH SCH (09:25)
[2017-07-20] MEDS: Folic Acid 1 MG TABLET PO SCH (09:33)
[2017-07-20] MEDS: amLODIPine 5 MG TABLET PO SCH ×2 (09:33→19:56)
[2017-07-20] MEDS: 0.9 % Sodium Chloride 1,000 ML IVC SCH (09:33)
[2017-07-20] MEDS: Famotidine 20 MG TABLET PO SCH ×2 (09:33→19:56)
[2017-07-20] MEDS: Multivit/Ca/Min/Fe/FA 1 TAB TABLET PO SCH (09:33)
[2017-07-20] MEDS: Acetaminophen 325 MG TABLET PO PRN ×2 (11:58→18:56)
[2017-07-20] MEDS ORDERED: ALPRAZolam 0.25 MG TABLET PO PRN (12:29)
[2017-07-20] MEDS ORDERED: Magnesium Sulfate 2 GM in D5% in Water 100 ML IVPB ONE (12:33)
--- NOTE | 2017-07-20 14:39 | Neurology - Consult Note ---
Date of Encounter: 07/20/17 Time of Encounter: 14:36 Assessment and Plan (1) Altered mental status Current Visit: Yes Status: Acute Patient mental status likely related to underlying medical conditions as being consistent with mild encephalopathy most likely due to recent chemotherapy as well as UTI and perhaps mild dehydration. No evidence of any acute stroke on examination as well as on CT scan of his head Suggest continue treatment and underlying infectious etiology also make sure that he is well hydrated. Check for any underlying metabolic abnormalities that may be contributing to his symptoms like vitamin B12 folate and TSH deficiencies. On the other hand because of some paranoid thought processes and increasing confusion may benefit from low-dose of Seroquel at bedtime. Discussed in detail with the patient and his Qualifiers: Altered mental status type: transient alteration of awareness Qualified Code(s): R40.4 - Transient alteration of awareness History of Present Illness HPI: Mr. Santoyo is a 66 year old male with PMH of HTN, COPD and recent diagnosis of metastatic [place] carcinoma of Rt lower lung, started on chemo therapy yesterday brought into [facility] emergency department by stating he has been having intermittent, waxing and waning episodes of confusion, had noted that over the past few weeks he has become increasingly more confused and some paranoid thinking, patient denies any abdominal pain, fever, chills, and headache. CT scan in the emergency room was reported as negative he was also found to have a UTI for which she has been getting treated Past Med Surg Social Fam HX - Past Medical History Medical history: cancer, COPD, hypertension, other Psychiatric history: no psych history - Past Surgical History Surgical History: no surgical history, other - Social History Smoking Status: Current every day smoker Packs per day: 1 Smokeless Tobacco Status: No Alcohol use: rarely Drug use: none - Family History Brother Living Status: Hx Family Cancer: Yes Grandmother Living Status: Hx Family Cancer: Yes Grandfather Living Status: Hx Family Cancer: Yes Father Living Status: Age at : 93 Cause of : "old age" Hx Family Cardiac Disorders: No Hx Family Cancer: No Hx Family Genitourinary Disorders: Yes Hx Family Medical Disorders: Yes Medications and Allergies Albuterol Sulfate [Ventolin Hfa] 2 puff IH Q4H PRN 05/23/17 [History] Umeclidinium Brm/Vilanterol Tr [Anoro Ellipta 62.5-25 Mcg INH] 1 puff IH DAILY 05/23/17 [History] amLODIPine [Norvasc] 5 mg PO BID 05/23/17 [History] Folic Acid 1 mg PO DAILY #30 tablet 06/05/17 [Rx] Docusate [Colace] 100 mg PO BID PRN 06/18/17 [History] HYDROcodone/Acet 5/325 mg [[place] 5-325 mg] 1 tab PO Q6H PRN #30 tab 07/11/17 [Rx ] Multivit-Min/FA/Lycopen/Lutein [Centrum Silver Men Tablet] 1 each PO DAILY 07/11 [History] LORazepam [Ativan] 1 mg PO Q4HR PRN 07/19/17 [History] Promethazine [Phenergan] 12.5 - 25 mg PO Q6HR PRN 07/19/17 [History] 3 Allergy/AdvReac Type Severity Reaction Status Date / Time codeine Allergy Hives Verified 07/18/17 08:28 All Systems: A 10-system review of systems was performed and is negative for pertinent findings except as documented above in the HPI. - Constitutional Constitutional ROS IM: as per HPI Physical Examination - Vital Signs Vital Signs: Initial Vital Signs Temp Pulse Resp BP Pulse Ox 97.2 F L 97 16 163/84 99 07/19/17 13:58 07/19/17 13:58 07/19/17 13:58 07/19/17 13:58 07/19/17 13:58 - Constitutional General appearance: comfortable, chronically ill (Neurological examination:) - Neurologic Sensorimotor examination: intact Motor examination - right side: 4/5: deltoids, biceps, triceps, wrist flexion, wrist extension, soakers supervisor, hip flexors, tibialis Anterior, quadriceps, toe extension (EHL), plantarflexion Motor examination - left side: 4/5: deltoids, biceps, triceps, wrist flexion, wrist extension, hip flexors, soakers supervisor, quadriceps, tibialis Anterior, toe extension (EHL), plantarflexion Reflex and gait examination: intact Reflexes: Biceps: 1+, Triceps: 1+, Brachioradialis: 1+, Patella: 1+, Achilles: 1 + Mental Status Examination: awake, oriented to person, answers questions appropriately, makes eye contact, follows simple commands Cranial nerve examination: PERRL, EOMI, visual santana intact, no facial asymmetry is present Cerebellar examination: no dysmetria Results - Laboratory Findings CBC and BMP: 07/20/17 04:48 07/20/17 04:48 Abnormal lab findings: Abnormal lab results WBC 15.4 K/mcL (4.3-11.1) H 07/20/17 04:48 RBC 3.20 M/mcL (4.19-5.50) L 07/20/17 04:48 Hgb 10.2 g/dL (12.9-16.9) L 07/20/17 04:48 Hct 29.8 % (37.5-50.1) L 07/20/17 04:48 MPV 8.7 fL (9.4-12.4) L 07/20/17 04:48 Neutrophils # 14.4 K/mcL (1.6-8.9) H 07/20/17 04:48 Lymphocytes # 0.5 K/mcL (0.6-4.6) L 07/20/17 04:48 Sodium 129 mEq/L (136-145) L 07/20/17 04:48 Chloride 97 mEq/L (98-109) L 07/20/17 04:48 Creatinine 0.70 mg/dL (0.72-1.25) L 07/20/17 04:48 Calculated Osmolality 267 (280-300) L 07/20/17 04:48 Magnesium 1.5 mg/dL (1.6-2.6) L 07/20/17 04:48 Alkaline Phosphatase 133 Units/L (38-126) H 07/20/17 04:48 Serum Total Protein 5.9 g/dL (6.0-8.3) L 07/20/17 04:48 Albumin 2.8 g/dL (3.5-5.0) L 07/20/17 04:48 Albumin/Globulin Ratio 0.9 (1.1-2.2) L 07/20/17 04:48 Ur Specimen Adequacy See below A 07/19/17 15:28 Ur Leukocyte Esterase Moderate (Negative) H 07/19/17 15:28 Urine Microscopic WBC 5-15 per hpf (0-3) H 07/19/17 15:28 Ur Culture Indicated? YES (NO) A 07/19/17 15:28 Consult Discharge Plan - Plan Referrals: Dario Díaz, [Primary Care Provider] -
[2017-07-20 16:59] LABS: Folate > 40.0 ng/mL (7.0-31.4); Vitamin B12 1965 pg/mL (213-816)
--- NOTE | 2017-07-20 17:00 | Oncology Inp Consult Note ---
Date of Encounter: 07/20/17 Time of Encounter: 17:00 Assessment and Plan (1) Altered mental status Status: Acute Assessment and plan: Acute delirium which appears secondary to an underlying urinary tract infection. Contributing factors include recent administration of steroids as part his antibiotic protocol as well as chemotherapy. He appears to have fully recovered by my meeting with him today. He is back to baseline. Appreciate the expert care provided by the hospitalist team. Qualifiers: Altered mental status type: transient alteration of awareness Qualified Code(s): R40.4 - Transient alteration of awareness (2) Primary cancer of right lung metastatic to other site Status: Chronic Assessment and plan: Clinically, he appears to be doing well. Outside of this acute episode of delirium, he tires first dose of chemotherapy without toxicity. I recommend we continue with cycle #2 in approximately 3 weeks' time. I will try to decrease steroid dosing see if this helps prevent delirium. We will arrange for him to get Neulasta injection after discharge on Saturday or Saturday this coming week. (3) UTI (urinary tract infection) Status: Acute Assessment and plan: He has multiple risk factors for UTI including catheterization. Continue with Rocephin as he appears clinically improved pending urine cultures. I will arrange for outpatient follow-up after discharge. Do not hesitate to call my cell phone at [phone] with concerns or questions. 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 Patient has recently recovered from a pathologic left hip fracture status post left CHARITY A and was just placed on his first dose of palliative carboplatin pemetrexed and [place] is a man this past . Patient was to be taken to my office yesterday for Neulasta. His neighbor was to provide him transportation. They found him to be confused and agitated. They contacted our office while on the way to the emergency department. In the emergency department, he was found to have urinary tract infection and he has been placed on Rocephin pending cultures. BLOOD BANK ASSISTANT imaging is unremarkable. Neurology has evaluated the patient and concurs this was acute delirium. I am meeting with the patient this afternoon. He is back to his old baseline. He recalls some of the day yesterday but does not require the confusion or agitation prompting the emergency department visit. He did not admit to any urinary tract infection symptoms until he thought about this retrospectively were he has been having dark cloudy urine. No dysuria or urinary frequency. No fever or chills. He denies any nausea, vomiting, diarrhea or constipation related to chemotherapy. Energy robust and overall he thinks he tolerated therapy quite well. Past Med Surg Social Fam HX - Past Medical History Medical history: cancer, COPD, hypertension, other Psychiatric history: no psych history - Past Surgical History Surgical History: no surgical history, other - Social History Smoking Status: Current every day smoker Packs per day: 1 Smokeless Tobacco Status: No Alcohol use: rarely Drug use: none - Family History Brother Living Status: Hx Family Cancer: Yes Grandmother Living Status: Hx Family Cancer: Yes Grandfather Living Status: Hx Family Cancer: Yes Father Living Status: Age at : 93 Cause of : "old age" Hx Family Cardiac Disorders: No Hx Family Cancer: No Hx Family Genitourinary Disorders: Yes Hx Family Medical Disorders: Yes Medications and Allergies Albuterol Sulfate [Ventolin Hfa] 2 puff IH Q4H PRN 05/23/17 [History] Umeclidinium Brm/Vilanterol Tr [Anoro Ellipta 62.5-25 Mcg INH] 1 puff IH DAILY 05/23/17 [History] amLODIPine [Norvasc] 5 mg PO BID 05/23/17 [History] Folic Acid 1 mg PO DAILY #30 tablet 06/05/17 [Rx] Docusate [Colace] 100 mg PO BID PRN 06/18/17 [History] HYDROcodone/Acet 5/325 mg [[place] 5-325 mg] 1 tab PO Q6H PRN #30 tab 07/11/17 [Rx ] Multivit-Min/FA/Lycopen/Lutein [Centrum Silver Men Tablet] 1 each PO DAILY 07/11 [History] LORazepam [Ativan] 1 mg PO Q4HR PRN 07/19/17 [History] Promethazine [Phenergan] 12.5 - 25 mg PO Q6HR PRN 07/19/17 [History] 3 Allergy/AdvReac Type Severity Reaction Status Date / Time codeine Allergy Hives Verified 07/18/17 08:28 All systems: reviewed and no additional remarkable complaints except as stated Constitutional: Present: fatigue Respiratory: Present: dyspnea on exertion Musculoskeletal: Present: abnormal gait Oncology - Exam - Constitutional Vitals: Temp Pulse Resp BP Pulse Ox 98 F 87 20 132/77 92 07/20/17 16:00 07/20/17 16:00 07/20/17 16:00 07/20/17 16:00 07/20/17 16:00 - Head Head exam: Present: atraumatic, normal inspection, normocephalic - Eye Eye exam: Present: normal appearance, conjuntiva pink, sclera anicteric - ENT ENT exam: Present: mucous membranes moist, normal exam - Neck Neck exam: Present: full ROM, normal inspection - Respiratory Respiratory exam: Present: decreased breath sounds, CTAB - Cardiovascular Cardiovascular exam: Present: RRR - GI/Abdominal GI/Abdominal exam: Present: normal bowel sounds, soft - Extremities Exam Extremities exam: Present: normal inspection - Neurological Exam Neurological exam: Present: alert, CN II-XII intact, oriented X3, no focal deficits, strengths equal and symetr throughout Oncology - Results Labs: Short CBC 07/20/17 Range/Units 04:48 WBC 15.4 H (4.3-11.1) K/mcL Hgb 10.2 L (12.9-16.9) g/dL Hct 29.8 L (37.5-50.1) % Plt Count 248 (140-400) K/mcL Neutrophils # 14.4 H (1.6-8.9) K/mcL BMP 07/20/17 04:48 Sodium 129 L Potassium 4.0 Chloride 97 L Carbon Dioxide 23 BUN 13 Creatinine 0.70 L Glucose 84 Calcium 8.7 Liver Function 07/20/17 Range/Units 04:48 Total Bilirubin 0.4 (0.2-1.2) mg/dL AST 15 (5-34) Units/L ALT 16 (0-55) Units/L Alkaline Phosphatase 133 H (38-126) Units/L Albumin 2.8 L (3.5-5.0) g/dL Urinalysis with positive leukocyte esterase and 5-15 white blood cells. No squamous epithelial cells Consult Discharge Plan - Plan Referrals: Dario Díaz DO [Primary Care Provider] -
--- NOTE | 2017-07-20 17:44 | Internal Med Progress Note ---
Date of Encounter: 07/20/17 Time of Encounter: 12:30 - Assessment and plan (1) Acute metabolic encephalopathy Current Visit: Yes Status: Acute Assessment and plan: Most likely combination of meds, infection, recent life stresses. Appreciate neuro and onc input. To start small dose of Seroquel tonight. (2) UTI (urinary tract infection) Current Visit: Yes Status: Acute Assessment and plan: On abx at this time. Culture pending. Qualifiers: Urinary tract infection type: acute cystitis Hematuria presence: without hematuria Qualified Code(s): N30.00 - Acute cystitis without hematuria (3) COPD (chronic obstructive pulmonary disease) Current Visit: No Status: Chronic Assessment and plan: Supportive care. Not in exacerbation. Qualifiers: COPD type: emphysema Emphysema type: panlobular Qualified Code(s): J43.1 - Panlobular emphysema (4) Primary cancer of right lung metastatic to other site Current Visit: Yes Status: Chronic Assessment and plan: Per onc. (5) Hyponatremia Current Visit: No Status: Acute Assessment and plan: Most likely SIADH. Start sodium chloride tabs (ordered for at home). (6) Tobacco abuse Current Visit: Yes Status: Chronic Assessment and plan: Cessation counselling. 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 He remains moderate to high risk due to potential for worsening neuro and infectious status. 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 His is very worried about his recent paranoia and confusion. No fever or chills. No abd pain, CP or SOB at this time. Cultures are pending. - Constitutional Vitals: Temp Pulse Resp BP Pulse Ox 98 F 87 20 132/77 92 07/20/17 16:00 07/20/17 16:00 07/20/17 16:00 07/20/17 16:00 07/20/17 16:00 General appearance: Present: A&O X 3, answers questions appropriately - Head Head exam: Present: normocephalic - Eye Eye exam: Present: EOMI, conjuntiva pink - ENT ENT exam: Present: mucous membranes dry - Respiratory Respiratory exam: Present: rales. Absent: accessory muscle use, respiratory distress, rhonchi, wheezes - Cardiovascular Cardiovascular exam: Present: RRR. Absent: tachycardia - GI/Abdominal GI/Abdominal exam: Present: soft. Absent: tenderness - Extremities Exam Extremities exam: Present: warm. Absent: tenderness - Neurological Exam Neurological exam: Present: alert, oriented X3 - Skin Skin exam: Present: warm. Absent: rash Internal Medicine: Result - Labs CBC & Chem 7: 07/20/17 04:48 07/20/17 04:48 Labs: Short CBC 07/20/17 Range/Units 04:48 WBC 15.4 H (4.3-11.1) K/mcL Hgb 10.2 L (12.9-16.9) g/dL Hct 29.8 L (37.5-50.1) % Plt Count 248 (140-400) K/mcL Neutrophils # 14.4 H (1.6-8.9) K/mcL BMP 07/20/17 04:48 Sodium 129 L Potassium 4.0 Chloride 97 L Carbon Dioxide 23 BUN 13 Creatinine 0.70 L Glucose 84 Calcium 8.7 Liver Function 07/20/17 Range/Units 04:48 Total Bilirubin 0.4 (0.2-1.2) mg/dL AST 15 (5-34) Units/L ALT 16 (0-55) Units/L Alkaline Phosphatase 133 H (38-126) Units/L Albumin 2.8 L (3.5-5.0) g/dL - ABG Interpretation ABG results: PT/INR, D-dimer PT 11.3 Seconds (9.4-12.1) 07/19/17 14:30 Consult Discharge Plan - Plan Referrals: Dario Díaz DO [Primary Care Provider] -
[2017-07-21] MEDS: Acetaminophen 325 MG TABLET PO PRN ×2 (03:08→11:51)
[2017-07-21] MEDS: *HR* Enoxaparin 40 MG/0.4 ML SYRINGE SQ SCH (05:48)
[2017-07-21 07:37] LABS: Hemoglobin 9.8 g/dL (12.9-16.9); Mean Corpuscular Hemoglobin 31.9 pg (28.0-33.3); Red Blood Count 3.07 M/mcL (4.19-5.50); Red Cell Distribution Width 13.2 % (11.5-14.5)
[2017-07-21 07:38] LABS: Hematocrit 28.7 % (37.5-50.1); Mean Corpuscular HGB Conc 34.1 g/dL (31.6-35.5); Mean Corpuscular Volume 93.5 fL (83.0-100.0); Platelet Count 216 K/mcL (140-400)
[2017-07-21 08:10] LABS: BUN/Creatinine Ratio 15 (6-26); Blood Urea Nitrogen 10 mg/dL (8-26); Calcium 8.6 mg/dL (8.6-10.8); Carbon Dioxide 24 mEq/L (19-29); Chloride 94 mEq/L (98-109); Glucose 84 mg/dL (70-99); Magnesium 1.4 mg/dL (1.6-2.6); Osmolality,Calculated 258 (280-300); Potassium 3.8 mEq/L (3.5-4.5); Sodium 125 mEq/L (136-145); eGFR For African Americans > 60 (> 60); eGFR For Non-African Americans > 60 (> 60)
[2017-07-21] MEDS ORDERED: Magnesium Sulfate 4 GM in D5% in Water 100 ML IVPB ONE (08:25)
[2017-07-21] MEDS: (Umeclidinium Brm/Vilanterol Tr [Anoro Ellipta 62.5-2 IH SCH (09:27)
[2017-07-21] MEDS: amLODIPine 5 MG TABLET PO SCH (09:27)
[2017-07-21] MEDS: Folic Acid 1 MG TABLET PO SCH (09:27)
[2017-07-21] MEDS: Famotidine 20 MG TABLET PO SCH (09:27)
[2017-07-21] MEDS: Multivit/Ca/Min/Fe/FA 1 TAB TABLET PO SCH (09:27)
[2017-07-21] MEDS: Magnesium Sulfate 2 GM in D5% in Water 100 ML IVPB SCH ×2 (09:33→11:52)
[2017-07-21 09:44] VITALS: BP 148/90
--- NOTE | 2017-07-21 11:29 | Discharge Summary ---
Date of Encounter: 07/21/17 Time of Encounter: 09:00 - Discharge Diagnosis (1) Acute metabolic encephalopathy Priority: Primary Status: Resolved (2) UTI (urinary tract infection) Priority: Primary Status: Acute Qualifiers: Urinary tract infection type: acute cystitis Hematuria presence: without hematuria Qualified Code(s): N30.00 - Acute cystitis without hematuria (3) COPD (chronic obstructive pulmonary disease) Priority: Secondary Status: Chronic Qualifiers: COPD type: emphysema Emphysema type: panlobular Qualified Code(s): J43.1 - Panlobular emphysema (4) Primary cancer of right lung metastatic to other site Priority: Secondary Status: Chronic (5) Hyponatremia Priority: Secondary Status: Chronic (6) Tobacco abuse Priority: Secondary Status: Chronic (7) Hypomagnesemia Priority: Secondary Status: Acute (8) Left acetabular fracture Priority: Secondary Status: Chronic Qualifiers: Encounter type: sequela Sublocation of acetabulum: medial wall Fracture type: closed Fracture alignment: nondisplaced Qualified Code(s): S32.475S - Nondisplaced fracture of medial wall of left acetabulum, sequela (9) Metastatic cancer to bone Priority: Secondary Status: Chronic - Discharge Medications Prescriptions: ALPRAZolam [Xanax 0.25 MG Tablet] 0.25 mg PO TID PRN #20 tablet PRN Reason: Anxiety Quetiapine Fumarate [Seroquel] 25 mg PO HS #30 tablet Sodium Chloride 1 gm PO TID #90 tablet Home Medications: Albuterol Sulfate [Ventolin Hfa] 2 puff IH Q4H PRN 05/23/17 [History] Umeclidinium Brm/Vilanterol Tr [Anoro Ellipta 62.5-25 Mcg INH] 1 puff IH DAILY 05/23/17 [History] amLODIPine [Norvasc] 5 mg PO BID 05/23/17 [History] Folic Acid 1 mg PO DAILY #30 tablet 06/05/17 [Rx] Docusate [Colace] 100 mg PO BID PRN 06/18/17 [History] HYDROcodone/Acet 5/325 mg [[place] 5-325 mg] 1 tab PO Q6H PRN #30 tab 07/11/17 [Rx ] Multivit-Min/FA/Lycopen/Lutein [Centrum Silver Men Tablet] 1 each PO DAILY 07/11 [History] Promethazine [Phenergan] 12.5 - 25 mg PO Q6HR PRN 07/19/17 [History] ALPRAZolam [Xanax 0.25 MG Tablet] 0.25 mg PO TID PRN #20 tablet 07/21/17 [Rx] Acetaminophen [Tylenol] 650 mg PO Q6HR PRN tablet 07/21/17 [Rx] Quetiapine Fumarate [Seroquel] 25 mg PO HS #30 tablet 07/21/17 [Rx] Sodium Chloride 1 gm PO TID #90 tablet 07/21/17 [Rx] Allergies/Adverse Reactions: 3 Allergy/AdvReac Type Severity Reaction Status Date / Time codeine Allergy Hives Verified 07/18/17 08:28 Date of admission: 07/19/17 19:52 Primary care physician: Dario Díaz Consults: 07/20/17 12:28 Consult to Neurology [CONS] Routine Consulting Provider: Neurology [facility] Reason for Consult: Confusion episodes, paranoia. concerned. Time Notified: 12:30 Call Completed: Yes Discharging clinician: Adolfo Valdez Anticipated date of discharge: 07/21/17 - Patient Status Disposition: Home, Self-Care Condition: Good Functional capacity at discharge: uses cane/walker Overall status at discharge: patient is progressing back to baseline - Discharge Instructions Follow Up With: Dario Díaz DO [Primary Care Provider] - Additional Instructions: Follow up with Dr. Khanna as arranged. You did receive the Neulasta injection here on admission. Take Seroquel at night to help with sleep. 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 He had received his first chemotherapy the prior day. He was to go to the office to get Neulasta shot and his stated he became very agitated and confused. He was aggressive and she could not get him to go to appointment. She called 911 to transport him to the hospital. He was evaluated and admitted for further work up. Natanael was admitted to [facility]. There was concern for UTI and he was started on IV Ceftriaxone. He was also given IV fluids. He was somewhat improved the next morning. His was concerned that he was having increasing confusion over the prior few months. Neurology was consulted and he was started on low dose Seroquel at night. On the morning of 07/21 he was awake and alert. He was oriented. He was able to ambulate in the hallway with his walker. He felt that he would do better at home because he would be able to sleep (more comfortable) and move around. He was afebrile with stable vitals. His urine culture was negative and he received a total of 3 days of IV Ceftriaxone. He did receive Neulasta on admission and today his WBC is elevated at 32K. He is felt to be ready for discharge home. No antibiotics will be prescribed. He will be kept on the Seroquel at night. - Time Spent with Patient Total time spent providing and/or coordinating discharge services: 42min - Constitutional Vitals: Temp Pulse Resp BP Pulse Ox 97.6 F 90 16 148/90 97 07/21/17 03:00 07/21/17 09:43 07/21/17 09:43 07/21/17 09:43 07/21/17 03:00 General appearance: Present: A&O X 3, answers questions appropriately - Head Head exam: Present: normocephalic - Eye Eye exam: Present: EOMI, conjuntiva pink - ENT ENT exam: Present: mucous membranes moist - Respiratory Respiratory exam: Present: rales, rhonchi Additional comments: Scattered rales and rhonchi - worse on R. No wheeze. - Cardiovascular Cardiovascular exam: Present: RRR. Absent: tachycardia - GI/Abdominal GI/Abdominal exam: Present: soft. Absent: tenderness - Extremities Exam Extremities exam: Present: warm. Absent: tenderness - Neurological Exam Neurological exam: Present: alert, oriented X3 - Skin Skin exam: Present: dry, warm. Absent: rash
[2017-07-21] MEDS ORDERED: FLUARIX QUAD 2017-18 36MOS UP/PF 0.5 ML SYRINGE IM ONE (13:14)
--- NOTE | 2017-07-22 18:19 | Electrocardiograph Report ---
[place] [id number] Test Date: 2017-07-19 Pat Name: Gómez Santoyo Department: 103 Room: 2N6 Gender: M Machine Tech: : 1950 Requested By: Barrera De Luna Order Number: [id number] Reading MD: Alfredo Ann MD Measurements Intervals [place] Rate: 93 P: 65 DC: 156 QRS: 56 QRSD: 99 T: 59 QT: 362 QTc: 412 Interpretive Statements SINUS RHYTHM Electronically Signed On 07-22-2017 18:18:06 EDT by Alfredo Ann MD
== END 2017-07-21 13:29 | disposition home or self-care (01) | DRG 91 ==
LOC: 2NENU 13:56 → EMEROO 13:56 → 2NENU 17:46
PROVIDERS: ADMIT Hospitalist; ATTEND Internal Medicine

== ENCOUNTER 2017-10-08 13:24 | Inpatient (IN) ==
[2017-10-08] MEDS ORDERED: Vancomycin 1,000 MG in D5% in Water 250 ML IVPB ONE (13:50)
[2017-10-08] MEDS ORDERED: Piperacillin/Tazobactam 3.375 GM in Water for inj. (sterile) 20 ML IVP ONE (13:50)
[2017-10-08] MEDS ORDERED: 0.9 % Sodium Chloride 1,000 ML IVC ONE ×2 (13:51→14:56)
[2017-10-08] MEDS ORDERED: *HR* Morphine 2 MG/ML SYRINGE IVP PRN (13:58)
[2017-10-08] MEDS ORDERED: Ondansetron 4 MG/2 ML VIAL IVP PRN (14:07)
[2017-10-08 14:14] LABS: Basophils % 0.2 %; Eosinophils % 0.2 %; Hematocrit 30.9 % (37.5-50.1); Hemoglobin 9.8 g/dL (12.9-16.9); Immature Granulocytes % 0.7 % (0-4); Lymphocytes # 0.5 K/mcL (0.6-4.6); Lymphocytes % 3.8 %; Mean Corpuscular HGB Conc 31.7 g/dL (31.6-35.5); Mean Corpuscular Hemoglobin 30.8 pg (28.0-33.3); Mean Corpuscular Volume 97.2 fL (83.0-100.0); Mean Platelet Volume 9.3 fL (9.4-12.4); Monocytes # 0.9 K/mcL (0.0-1.3); Monocytes % 7.5 %; Neutrophils # 10.6 K/mcL (1.6-8.9); Nucleated Red Blood Cells 0.2 /100 WBC (0); Platelet Count 332 K/mcL (140-400); Red Blood Count 3.18 M/mcL (4.19-5.50); Red Cell Distribution Width 16.3 % (11.5-14.5); Segmented Neutrophils % 87.6 %
[2017-10-08 14:27] LABS: Alanine Aminotransferase 15 Units/L (7-52); Albumin/Globulin Ratio 0.9 (1.1-2.2); Alkaline Phosphatase 202 Units/L (34-104); Aspartate Amino Transferase 20 Units/L (13-39); BUN/Creatinine Ratio 26 (6-26); Bilirubin,Direct 0.1 mg/dL (0.0-0.2); Bilirubin,Indirect 0.2 mg/dL (0.0-1.2); Bilirubin,Total 0.3 mg/dL (0.3-1.0); Blood Urea Nitrogen 23 mg/dL (8-23); Calcium 10.2 mg/dL (8.6-10.3); Carbon Dioxide 23 mEq/L (23-29); Chloride 98 mEq/L (98-107); Globulin 3.3 g/dL (2.4-3.5); Glucose 77 mg/dL (70-105); Magnesium 1.6 mg/dL (1.6-2.6); Osmolality,Calculated 274 (280-300); Phosphorous 4.6 mg/dL (2.7-4.5); Potassium 3.9 mEq/L (3.5-5.1); Sodium 131 mEq/L (136-145); Total Protein 6.3 g/dL (6.4-8.9); eGFR For African Americans > 60 (> 60); eGFR For Non-African Americans > 60 (> 60)
[2017-10-08 14:47] LABS: Activated Partial Thrombo Time 28.2 Seconds (26.0-36.0); INR 1.2; Prothrombin Time 12.6 Seconds (9.4-12.1)
--- NOTE | 2017-10-08 14:54 | Emergency Department Note ---
Disposition Clinical Impression: Pressure ulcer of sacral region, stage 3, Sepsis affecting skin, Generalized weakness, History of malignant neoplasm metastatic to lung, History of rib fracture, Collapse of right lung Cellulitis Qualifiers: Site of cellulitis: buttock Qualified Code(s): L03.317 - Cellulitis of buttock Disposition: Admitted As Inpatient Condition: Serious Time of Disposition: 00:32 Wound/Laceration HPI - General Chief Complaint: ED Wound/Laceration Stated Complaint: ULCER Time Seen by Provider: 10/08/17 13:39 Source: patient, family Limitations: no limitations Nursing Notes Reviewed: Yes Vital Signs Reviewed: Yes - History of Present Illness HPI Narrative: 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 Patient presents with worsening pressure ulcer to his sacrum. Patient is placed on Bactrim outpatient with wound care - Related Data Home Medications Medication Instructions Recorded Confirmed Albuterol Sulfate [Ventolin Hfa] 2 puff IH Q4H PRN 05/23/17 10/08/17 Umeclidinium Brm/Vilanterol Tr 1 puff IH DAILY 05/23/17 10/08/17 [Anoro Ellipta 62.5-25 Mcg INH] amLODIPine [Norvasc] 5 mg PO BID 05/23/17 10/08/17 Docusate [Colace] 100 mg PO BID PRN 06/18/17 10/08/17 Previous Rx's Medication Instructions Recorded Folic Acid 1 mg PO DAILY #30 tablet 06/05/17 Acetaminophen [Tylenol] 650 mg PO Q6HR PRN tablet 07/21/17 Quetiapine Fumarate [Seroquel] 25 mg PO HS #30 tablet 07/21/17 Dronabinol [Marinol] 5 mg PO BID #60 capsule 09/19/17 ALPRAZolam [Xanax 0.25 MG Tablet] 0.25 mg PO TID PRN #90 tablet 09/27/17 Morphine Immed Rel [Morphine 15 mg PO Q4HR PRN 7 Days #28 tab 10/05/17 Sulfate] Sulfamethoxazole/Trimeth DS 2 each PO BID #28 tablet 10/05/17 [Bactrim DS] Allergies Allergy/AdvReac Type Severity Reaction Status Date / Time codeine Allergy Hives Verified 10/08/17 14:44 All systems ED: reviewed and negative except as stated. Review of Systems: As Per HPI Constitutional: Reports: weakness. Denies: fever ENT ED: Denies: congestion Cardiovascular: Denies: chest pain, palpitations Respiratory: Denies: cough, dyspnea Gastrointestinal: Denies: abdominal pain, nausea, vomiting, diarrhea Past Medical History - Past Medical History Attestation: Yes The following information was validated with the patient. Source: patient, nursing notes reviewed Medical history: Reports: cancer, COPD, hypertension, other Surgical history: Reports: orthopedic, other, other Psychiatric history: Reports: no psych history - Social History Smoking Status: Light tobacco smoker Smokeless Tobacco Status: No Alcohol use: Reports: none Drug use: Reports: none Physical Exam Vital Signs Temperature 97.7 F 10/08/17 13:31 Pulse Rate 100 10/08/17 13:31 Respiratory Rate 18 10/08/17 13:31 Blood Pressure 108/74 10/08/17 13:31 O2 Sat by Pulse Oximetry 94 10/08/17 13:31 Temperature 97.2 F L 10/08/17 21:09 Pulse Rate 91 10/08/17 21:09 Respiratory Rate 20 10/08/17 21:09 Blood Pressure 100/60 10/08/17 21:09 O2 Sat by Pulse Oximetry 97 10/08/17 21:09 Oxygen Delivery Oxygen Delivery Room Air 66-year-old male who is alert and oriented 3 and in acute distress secondary to pain and lower back. Patient is unable to stand up straight and is unable to lie on his back secondary to ulceration to the sacral area. Patient has a large ulcerated sore that looks elias gangrenous and purulent. Large area of erythema with packing that has fallen out secondary to devitalized tissue. Pocket it looks to extend deep down into his lower sacral area. - General Limitations: no limitations General appearance: alert, in no apparent distress - Head Head exam: atraumatic, normocephalic, normal inspection - Eye Eye exam: Present: normal appearance, PERRL, EOMI - ENT ENT exam: normal exam, normal oropharynx, mucous membranes moist - Neck Neck exam: Present: normal inspection, full ROM, trachea midline - Chest Chest inspection: Present: normal inspection, symmetric chest wall rise, tenderness - Respiratory Respiratory exam: Present: normal lung sounds bilaterally - Cardiovascular Cardiovascular exam: Present: normal rhythm, tachycardia, normal heart sounds - Abdominal Exam Abdominal exam: Present: soft, Non-Tender. Absent: tenderness, distention, guarding, rebound, rigidity - Extremities Exam Extremities exam: Present: normal inspection, full ROM. Absent: tenderness, pedal edema Course Vital Signs Temperature 97.7 F 10/08/17 13:31 Pulse Rate 100 10/08/17 13:31 Respiratory Rate 18 10/08/17 13:31 Blood Pressure 108/74 10/08/17 13:31 O2 Sat by Pulse Oximetry 94 10/08/17 13:31 Temperature 97.2 F L 10/08/17 21:09 Pulse Rate 91 10/08/17 21:09 Respiratory Rate 20 10/08/17 21:09 Blood Pressure 100/60 10/08/17 21:09 O2 Sat by Pulse Oximetry 97 10/08/17 21:09 Oxygen Delivery Oxygen Delivery Room Air Wound/Laceration - MDM Narrative Medical decision making narrative: Sepsis secondary to skin infection of sacral ulceration that is possibly gangrenous. When his been getting progressively worse. He has a putrid smell. Consulted general surgery for debridement. Dr. Rivera is come to assess the patient. He has been informed patient has elevated WBC, lactic acid. Patient to be admitted for medical management. Patient started on Vancomycin and Zosyn IV. Patient understands and agrees to treatment for admission. Patient is accepted for admission by Dr. Elkins. After inpatient assessment and treatment. Current plan is the patient is started outpatient hospice. - Lab Data Lab results reviewed: Yes I reviewed the patient's lab results. Lab results narrative: Short CBC 10/08/17 Range/Units 14:05 WBC 12.1 H (4.3-11.1) K/mcL Hgb 9.8 L (12.9-16.9) g/dL Hct 30.9 L (37.5-50.1) % Plt Count 332 (140-400) K/mcL Neutrophils # 10.6 H (1.6-8.9) K/mcL BMP 10/08/17 Range/Units 14:05 Sodium 131 L (136-145) mEq/L Potassium 3.9 (3.5-5.1) mEq/L Chloride 98 (98-107) mEq/L Carbon Dioxide 23 (23-29) mEq/L BUN 23 (8-23) mg/dL Creatinine 0.88 (0.70-1.30) mg/dL Glucose 77 (70-105) mg/dL Calcium 10.2 (8.6-10.3) mg/dL Cardiac Enzymes 10/08/17 Range/Units 14:05 Troponin I < 0.03 (< 0.04) ng/mL Liver Function 10/08/17 Range/Units 14:05 Total Bilirubin 0.3 (0.3-1.0) mg/dL Direct Bilirubin 0.1 (0.0-0.2) mg/dL AST 20 (13-39) Units/L ALT 15 (7-52) Units/L Alkaline Phosphatase 202 H (34-104) Units/L Albumin 3.0 L (3.5-5.7) g/dL Result diagrams: 10/08/17 14:05 10/08/17 14:05 Lab Results 10/08/17 10/08/17 10/08/17 Range/Units 14:05 14:05 14:05 WBC 12.1 H (4.3-11.1) K/mcL RBC 3.18 L (4.19-5.50) M/mcL Hgb 9.8 L (12.9-16.9) g/dL Hct 30.9 L (37.5-50.1) % MCV 97.2 (83.0-100.0) fL MCH 30.8 (28.0-33.3) pg MCHC 31.7 (31.6-35.5) g/dL RDW 16.3 H (11.5-14.5) % Plt Count 332 (140-400) K/mcL MPV 9.3 L (9.4-12.4) fL Immature Gran % 0.7 (0-4) % Seg Neutrophils % 87.6 % Lymphocytes % 3.8 % Monocytes % 7.5 % Eosinophils % 0.2 % Basophils % 0.2 % Neutrophils # 10.6 H (1.6-8.9) K/mcL Lymphocytes # 0.5 L (0.6-4.6) K/mcL Monocytes # 0.9 (0.0-1.3) K/mcL Eosinophils # 0.0 (0.0-0.6) K/mcL Basophils # 0.0 (0.0-0.2) K/mcL Nucleated RBCs/100 WBC 0.2 H (0) /100 WBC PT 12.6 H (9.4-12.1) Seconds INR 1.2 APTT 28.2 (26.0-36.0) Seconds Sodium 131 L (136-145) mEq/L Potassium 3.9 (3.5-5.1) mEq/L Chloride 98 (98-107) mEq/L Carbon Dioxide 23 (23-29) mEq/L BUN 23 (8-23) mg/dL Creatinine 0.88 (0.70-1.30) mg/dL Est GFR ( Amer) > 60 (> 60) Est GFR (Non-Af Amer) > 60 (> 60) BUN/Creatinine Ratio 26 (6-26) Glucose 77 (70-105) mg/dL Calculated Osmolality 274 L (280-300) Lactic Acid (0.5-2.2) mmol/L Calcium 10.2 (8.6-10.3) mg/dL Phosphorus 4.6 H (2.7-4.5) mg/dL Magnesium 1.6 (1.6-2.6) mg/dL Total Bilirubin 0.3 (0.3-1.0) mg/dL Direct Bilirubin 0.1 (0.0-0.2) mg/dL Indirect Bilirubin 0.2 (0.0-1.2) mg/dL AST 20 (13-39) Units/L ALT 15 (7-52) Units/L Alkaline Phosphatase 202 H (34-104) Units/L Troponin I (< 0.04) ng/mL Serum Total Protein 6.3 L (6.4-8.9) g/dL Albumin 3.0 L (3.5-5.7) g/dL Globulin 3.3 (2.4-3.5) g/dL Albumin/Globulin Ratio 0.9 L (1.1-2.2) 10/08/17 10/08/17 Range/Units 14:05 14:05 WBC (4.3-11.1) K/mcL RBC (4.19-5.50) M/mcL Hgb (12.9-16.9) g/dL Hct (37.5-50.1) % MCV (83.0-100.0) fL MCH (28.0-33.3) pg MCHC (31.6-35.5) g/dL RDW (11.5-14.5) % Plt Count (140-400) K/mcL MPV (9.4-12.4) fL Immature Gran % (0-4) % Seg Neutrophils % % Lymphocytes % % Monocytes % % Eosinophils % % Basophils % % Neutrophils # (1.6-8.9) K/mcL Lymphocytes # (0.6-4.6) K/mcL Monocytes # (0.0-1.3) K/mcL Eosinophils # (0.0-0.6) K/mcL Basophils # (0.0-0.2) K/mcL Nucleated RBCs/100 WBC (0) /100 WBC PT (9.4-12.1) Seconds INR APTT (26.0-36.0) Seconds Sodium (136-145) mEq/L Potassium (3.5-5.1) mEq/L Chloride (98-107) mEq/L Carbon Dioxide (23-29) mEq/L BUN (8-23) mg/dL Creatinine (0.70-1.30) mg/dL Est GFR ( Amer) (> 60) Est GFR (Non-Af Amer) (> 60) BUN/Creatinine Ratio (6-26) Glucose (70-105) mg/dL Calculated Osmolality (280-300) Lactic Acid 2.6 H (0.5-2.2) mmol/L Calcium (8.6-10.3) mg/dL Phosphorus (2.7-4.5) mg/dL Magnesium (1.6-2.6) mg/dL Total Bilirubin (0.3-1.0) mg/dL Direct Bilirubin (0.0-0.2) mg/dL Indirect Bilirubin (0.0-1.2) mg/dL AST (13-39) Units/L ALT (7-52) Units/L Alkaline Phosphatase (34-104) Units/L Troponin I < 0.03 (< 0.04) ng/mL Serum Total Protein (6.4-8.9) g/dL Albumin (3.5-5.7) g/dL Globulin (2.4-3.5) g/dL Albumin/Globulin Ratio (1.1-2.2) - Radiology Data Radiology results reviewed: Yes I reviewed the patient's radiology results. Chest X-Ray 12/26/17 14:06 IMPRESSION: 1. Small-moderate right pleural effusion has developed with right basilar atelectasis superimposed on the mass at the right lung base and right middle lobe collapse. 2. No definite pneumothorax. 3. Acute posterior right 6th rib fracture is suspected. D/ / 10/08/2017 14:52:58 Justin Berman MD / ling Interpreting Provider: Justin Berman MD - EKG Data EKG attestation: Yes I reviewed and interpreted this EKG. Attestation Statement - Attestation Attestation: I examined this patient and my medical decision-making was reviewed with the Resident Physician. I agree with the documented findings, disposition and treatment plan as described except to the extent set forth below. Patient presents to the ED generalized weakness unable to ambulate. Brought in by . He was seen here a couple days ago and diagnosed with an infected sacral ulcer. He has been on by mouth antibiotic. He is getting weaker. He has metastatic lung cancer. states he would like to see him admitted to be able to set up home hospice. On examination he is cachectic. He has a large open wound to the sacrum with a moderate amount of surrounding erythema. There is packing and purulent drainage from the wound. Plan. Surgery was consult it. Patient started on antibiotic. Patient is admitted to medicine. They will obtain palliative care consult as well.
[2017-10-08] MEDS ORDERED: *HR* Morphine 2 MG/ML SYRINGE IVP ONE (15:29)
[2017-10-08] MEDS ORDERED: UMECLIDINIUM BRM IH SCH (16:45)
[2017-10-08] MEDS ORDERED: VILANTEROL TR IH SCH (16:45)
[2017-10-08] MEDS ORDERED: Acetaminophen 325 MG TABLET PO PRN ×2 (16:45→22:46)
[2017-10-08] MEDS ORDERED: Folic Acid 1 MG TABLET PO SCH (16:45)
[2017-10-08] MEDS ORDERED: *HR* Morphine Immed Rel 15 MG TABLET PO PRN ×3 (16:45→22:46)
[2017-10-08] MEDS ORDERED: ALPRAZolam 0.25 MG TABLET PO PRN ×2 (16:45→22:46)
[2017-10-08] MEDS ORDERED: Naloxone 0.4 MG/ML INJ IVP PRN ×2 (16:47→22:46)
[2017-10-08] MEDS ORDERED: 0.9 % Sodium Chloride 1,000 ML IVC SCH (17:00)
--- NOTE | 2017-10-08 17:00 | Internal Med History&Physical ---
<Luz Sheldon - Last Filed: 10/08/17 16:53> Date of Encounter: 10/08/17 Time of Encounter: 16:53 Assessment and Plan (1) Decubitus ulcer Status: Chronic Decubitus ulcer - Wound culture ordered. received ABX at ED. - Continue ABX pending cx results. Wound care consult. 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 (3) Hyponatremia Status: Chronic hyponatremia - IV 0.9 NS and recheck Na in am. (4) Protein-calorie malnutrition, severe Status: Chronic - encourage intake. Internal Medicine - H&P: HPI History of present illness: Mr. Santoyo is a 66 year old male who has past medical history of lung cancer and chronic sacral wound, present to ED with worsening sacral wound. He has been diagnosis with lung cancer and underwent chemotherapy and radio therapy. The cancer has been metastatic to bone which resulted in multiple rib fracture. She he rested and went right hip replacement recently and also developed sacral wound recently. He has been follow-up with the wound clinic at this hospital and he also has a home health care to take until the wound. His reported that in the past 3-5 days his wound has getting worse and become red with drainage, which prompted the patient to go to the ED for further evaluation and treatment. He denies fever chills or night sweats. He has no chest pain, shortness of breath, palpitation. At ED, he received antibiotics he will be admitted to his medical surgical floor with wound and palliative care. Past Med Surg Social Fam HX - Past Medical History Medical history: cancer, COPD, hypertension, other Psychiatric history: no psych history - Past Surgical History Surgical History: orthopedic, other, other - Social History Smoking Status: Light tobacco smoker Smokeless Tobacco Status: No Alcohol use: none Drug use: none - Family History Brother Living Status: Hx Family Cancer: Yes Grandmother Living Status: Hx Family Cancer: Yes Grandfather Living Status: Hx Family Cancer: Yes Father Living Status: Hx Family Cardiac Disorders: No Hx Family Cancer: No Internal Medicine - H&P: Meds Albuterol Sulfate [Ventolin Hfa] 2 puff IH Q4H PRN 05/23/17 [History] Umeclidinium Brm/Vilanterol Tr [Anoro Ellipta 62.5-25 Mcg INH] 1 puff IH DAILY 05/23/17 [History] amLODIPine [Norvasc] 5 mg PO BID 05/23/17 [History] Folic Acid 1 mg PO DAILY #30 tablet 06/05/17 [Rx] Docusate [Colace] 100 mg PO BID PRN 06/18/17 [History] Acetaminophen [Tylenol] 650 mg PO Q6HR PRN tablet 07/21/17 [Rx] Quetiapine Fumarate [Seroquel] 25 mg PO HS #30 tablet 07/21/17 [Rx] ALPRAZolam [Xanax 0.25 MG Tablet] 0.25 mg PO TID PRN #90 tablet 09/27/17 [Rx] Morphine Immed Rel [Morphine Sulfate] 15 mg PO Q4HR PRN 7 Days #28 tab 10/05/17 [Rx] Dronabinol [Marinol] 5 mg PO BID #60 capsule 10/15/17 [Rx] LORazepam Oral Conc [Ativan Oral Conc] 1 mg PO Q6HR #30 mls 10/15/17 [Rx] Morphine Immed Rel [Morphine Sulfate] 15 mg PO Q2H PRN #60 tab 10/15/17 [Rx] Morphine Oral CONC [Roxanol] 0.75 ml PO Q2H PRN #60 ml 10/15/17 [Rx] Sodium Hypochlorite 0.25% [Dakin's (Half-Strength 0.25%)] 1 appl TP DAILY #4 bottle 10/15/17 [Rx] Tiotropium [Spiriva] 18 mcg IH DAILYR #1 inh 10/15/17 [Rx] levoFLOXacin [Levaquin] 750 mg PO DAILY #14 tablet 10/15/17 [Rx] 3 Allergy/AdvReac Type Severity Reaction Status Date / Time codeine Allergy Hives Verified 10/08/17 14:44 All Systems PM: A 10-system review of systems was performed and is negative for pertinent findings except as documented above in the HPI. Review of systems: REVIEW OF SYSTEMS: CONSTITUTIONAL: No weight loss, fever, chills, weakness or fatigue. HEENT: Eyes: No visual loss, blurred vision, double vision or yellow sclerae. Ears, Nose, Throat: No hearing loss, sneezing, congestion, runny nose or sore throat. SKIN: No rash or itching. CARDIOVASCULAR: No chest pain, chest pressure or chest discomfort. No palpitations or edema. RESPIRATORY: No shortness of breath, cough or sputum. GASTROINTESTINAL: No anorexia, nausea, vomiting or diarrhea. No abdominal pain or blood. GENITOURINARY: No dysuria, urgency, or frequency. NEUROLOGICAL: No headache, dizziness, syncope, paralysis, ataxia, numbness or tingling in the extremities. No change in bowel or bladder control. MUSCULOSKELETAL: No muscle, back pain, joint pain or stiffness. HEMATOLOGIC: No anemia, bleeding or bruising. LYMPHATICS: No enlarged nodes. No history of splenectomy. PSYCHIATRIC: No history of depression or anxiety. ENDOCRINOLOGIC: No reports of sweating, cold or heat intolerance. No polyuria or polydipsia. - Constitutional Vitals: Temp Pulse Resp BP Pulse Ox 97.7 F 90 20 114/79 92 10/08/17 13:31 10/08/17 16:14 10/08/17 16:44 10/08/17 16:44 10/08/17 16:14 Exam: PHYSICAL EXAMINATION: GENERAL APPEARANCE: The patient is alert, oriented and in poor nutritional status. HEENT: Head is normocephalic. The sinuses are nontender. Pupils are equal and reactive. The nares are patent. Oropharynx clear without lesions. NECK: Supple without lymphadenopathy. HEART: Regular rate and rhythm. LUNGS: No crackles or wheezes are heard. ABDOMEN: Soft, non-tender, non-distended with good bowel sounds heard. Inguinal area is normal. EXTREMITIES: Without cyanosis, clubbing or edema. NEUROLOGICAL: Gross non-focal. SKIN: Warm and dry without any rash. Internal Med - H&P Results - Labs CBC & Chem 7: 10/08/17 14:05 10/08/17 14:05 <Adelaida Cunha - Last Filed: 11/08/17 09:48> Date of Encounter: 11/08/17 Internal Medicine - H&P: HPI History of present illness: Mr. Santoyo is a 67 year old male All Systems PM: A 10-system review of systems was performed and is negative for pertinent findings except as documented above in the HPI. - Constitutional Vitals: Temp Pulse Resp BP Pulse Ox 98.5 F 95 20 129/77 98 10/15/17 08:10 10/15/17 08:10 10/15/17 08:10 10/15/17 08:10 10/15/17 08:10 Internal Med - H&P Results - Labs CBC & Chem 7: 10/14/17 08:23 10/14/17 08:23 - Attending Attestation I personally and independently interviewed and examined the patient with PRINCIPAL TECHNICAL SPECIALIST, and I reviewed the patient's medical record with her. I am in agreement with the assessment and proposed treatment plan. I discussed my findings and recommendation with the patient and answer all questions. The patient's medical records were edited to accurately reflect this encounter.
--- NOTE | 2017-10-08 17:22 | General Surgery Consult Note ---
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 During the healing of his fractures he developed a chronic sacral wound, present to ED with worsening sacral wound. His reported that in the past 3-5 days his wound has getting worse and is now draining. He denies fever chills or night sweats. He has no chest pain, shortness of breath, palpitation. Surgery was consulted for wound care recommendations. Past Med Surg Social Fam HX - Past Medical History Medical history: cancer, COPD, hypertension, other Psychiatric history: no psych history - Past Surgical History Surgical History: orthopedic, other, other - Social History Smoking Status: Light tobacco smoker Smokeless Tobacco Status: No Alcohol use: none Drug use: none - Family History Brother Living Status: Hx Family Cancer: Yes Grandmother Living Status: Hx Family Cancer: Yes Grandfather Living Status: Hx Family Cancer: Yes Father Living Status: Hx Family Cardiac Disorders: No Hx Family Cancer: No Medications and Allergies Albuterol Sulfate [Ventolin Hfa] 2 puff IH Q4H PRN 05/23/17 [History] Umeclidinium Brm/Vilanterol Tr [Anoro Ellipta 62.5-25 Mcg INH] 1 puff IH DAILY 05/23/17 [History] amLODIPine [Norvasc] 5 mg PO BID 05/23/17 [History] Folic Acid 1 mg PO DAILY #30 tablet 06/05/17 [Rx] Docusate [Colace] 100 mg PO BID PRN 06/18/17 [History] Acetaminophen [Tylenol] 650 mg PO Q6HR PRN tablet 07/21/17 [Rx] Quetiapine Fumarate [Seroquel] 25 mg PO HS #30 tablet 07/21/17 [Rx] Dronabinol [Marinol] 5 mg PO BID #60 capsule 09/19/17 [Rx] ALPRAZolam [Xanax 0.25 MG Tablet] 0.25 mg PO TID PRN #90 tablet 09/27/17 [Rx] Morphine Immed Rel [Morphine Sulfate] 15 mg PO Q4HR PRN 7 Days #28 tab 10/05/17 [Rx] Sulfamethoxazole/Trimeth DS [Bactrim DS] 2 each PO BID #28 tablet 10/05/17 [Rx] 3 Allergy/AdvReac Type Severity Reaction Status Date / Time codeine Allergy Hives Verified 10/08/17 14:44 Review of Systems All systems PM: A 10-system review of systems was performed and is negative for pertinent findings except as documented above in the HPI. General Surgery Exam Initial Vital Signs Temp Pulse Resp BP Pulse Ox 97.7 F 100 18 108/74 94 10/08/17 13:31 10/08/17 13:31 10/08/17 13:31 10/08/17 13:31 10/08/17 13:31 - General physical appearance cachectic, chronically ill - Eyes normal ocular movement - ENT normocephalic - Neck no lymphadectomy - Respiratory normal expansion - Cardiovascular Cardiovascular exam: Present: RRR - Abdomen Abdomen general surgery: Present: soft, non tender - Integumentary Integumentary general surgery: Present: warm and dry, other (stage IV sacral wound; necrotic tissue; purulent drainage; non viable skin) - Neurologic Present: CN 2-12 grossly intact - Psychiatric Psychiatric general surgery: Present: A&Ox3 Exam Initial Vital Signs Temp Pulse Resp BP Pulse Ox 97.7 F 100 18 108/74 94 10/08/17 13:31 10/08/17 13:31 10/08/17 13:31 10/08/17 13:31 10/08/17 13:31 Results - Labs 10/08/17 14:05 10/08/17 14:05 Abnormal lab results WBC 12.1 K/mcL (4.3-11.1) H 10/08/17 14:05 RBC 3.18 M/mcL (4.19-5.50) L 10/08/17 14:05 Hgb 9.8 g/dL (12.9-16.9) L 10/08/17 14:05 Hct 30.9 % (37.5-50.1) L 10/08/17 14:05 RDW 16.3 % (11.5-14.5) H 10/08/17 14:05 MPV 9.3 fL (9.4-12.4) L 10/08/17 14:05 Neutrophils # 10.6 K/mcL (1.6-8.9) H 10/08/17 14:05 Lymphocytes # 0.5 K/mcL (0.6-4.6) L 10/08/17 14:05 Nucleated RBCs/100 WBC 0.2 /100 WBC (0) H 10/08/17 14:05 PT 12.6 Seconds (9.4-12.1) H 10/08/17 14:05 Sodium 131 mEq/L (136-145) L 10/08/17 14:05 Calculated Osmolality 274 (280-300) L 10/08/17 14:05 Lactic Acid 2.6 mmol/L (0.5-2.2) H 10/08/17 14:05 Phosphorus 4.6 mg/dL (2.7-4.5) H 10/08/17 14:05 Alkaline Phosphatase 202 Units/L (34-104) H 10/08/17 14:05 Serum Total Protein 6.3 g/dL (6.4-8.9) L 10/08/17 14:05 Albumin 3.0 g/dL (3.5-5.7) L 10/08/17 14:05 Albumin/Globulin Ratio 0.9 (1.1-2.2) L 10/08/17 14:05 All other labs normal. Consult Discharge Plan - Plan Referrals: Dario Díaz DO [Primary Care Provider] -
[2017-10-08] MEDS ORDERED: *HR* Heparin 5,000 UNIT/ML VIAL SQ SCH (18:15)
--- NOTE | 2017-10-08 18:42 | Anesthesia Evaluation PreOp ---
Date of Encounter: 10/08/17 Time of Encounter: 18:40 - Past History Planned Operation: debride sacral decub ulcer Cardiac History: HTN, Hyperlipidemia Pulmonary History: Smoker, COPD, Other (stage 4 lung cancer) [employer]TER [employer] PRESSER History: Denies Any Significant HX Other Medical History: Denies Any Significant HX Anesthesia History: No Prior Anesthetic Complications, Past Anesthesia (left LILLIAN , bronchoscopy) Alcohol Use: none Drug use: none Medications and Allergies Albuterol Sulfate [Ventolin Hfa] 2 puff IH Q4H PRN 05/23/17 [History] Umeclidinium Brm/Vilanterol Tr [Anoro Ellipta 62.5-25 Mcg INH] 1 puff IH DAILY 05/23/17 [History] amLODIPine [Norvasc] 5 mg PO BID 05/23/17 [History] Folic Acid 1 mg PO DAILY #30 tablet 06/05/17 [Rx] Docusate [Colace] 100 mg PO BID PRN 06/18/17 [History] Acetaminophen [Tylenol] 650 mg PO Q6HR PRN tablet 07/21/17 [Rx] Quetiapine Fumarate [Seroquel] 25 mg PO HS #30 tablet 07/21/17 [Rx] Dronabinol [Marinol] 5 mg PO BID #60 capsule 09/19/17 [Rx] ALPRAZolam [Xanax 0.25 MG Tablet] 0.25 mg PO TID PRN #90 tablet 09/27/17 [Rx] Morphine Immed Rel [Morphine Sulfate] 15 mg PO Q4HR PRN 7 Days #28 tab 10/05/17 [Rx] Sulfamethoxazole/Trimeth DS [Bactrim DS] 2 each PO BID #28 tablet 10/05/17 [Rx] 3 Allergy/AdvReac Type Severity Reaction Status Date / Time codeine Allergy Hives Verified 10/08/17 14:44 - Meds/Allergy Pre-op Review Medications Reviewed: Yes Allergies Reviewed: Yes Beta Blockers on Current Med List: No Anesthesia Results - Labs 10/08/17 14:05 10/08/17 14:05 Anesthesia Exam Selected Entries 10/08/17 16:14 10/08/17 16:44 10/08/17 17:14 Pulse Rate 90 Respiratory Rate 16 Blood Pressure 114/79 O2 Sat by Pulse Oximetry 92 Oxygen Delivery Method Room Air Weight: 59kg NPO (# of Hours): 8 - HEENT Pupil (Motor): EOMI Mallampati: II Teeth: Normal Oral Opening: Greater than 3 - CUTTER [employer] PRESSER LOC: Oriented [employer]TER [employer] PRESSER Motor: Normal RUE, Normal LUE, Normal RLE, Normal LLE, Normal Face [employer] PR[employer]ER Sensory: Normal: RUE, LUE, RLE, LLE, Face - Cardiac Rhythm: Regular Murmur: None - Pulmonary Breath Sounds: bilateral Clear Respiratory Effort: Symmetrical Anesthesia Assess/Plan ASA Score: 3 Modified [place] Scale for Level of Consciousness: Cooperative, oriented, and tranquil Anesthetic Plan: General Monitoring Plan: Standard Monitors Recovery Plan: PACU (patient will be prone position. Agrees to GA)
[2017-10-08] MEDS ORDERED: Vancomycin 1,000 MG VIAL ONE (18:43)
[2017-10-08] MEDS ORDERED: Lidocaine -MPF 2% 2 ML VIAL ONE (18:48)
[2017-10-08] MEDS ORDERED: *HR* FentaNYL (PF) 100 MCG/2 ML VIAL ONE (18:48)
[2017-10-08] MEDS ORDERED: *HR* Midazolam HCl 2 MG/2 ML VIAL ONE (18:48)
[2017-10-08] MEDS ORDERED: *HR* Propofol 200 MG/20 ML VIAL IVP ONE (18:48)
[2017-10-08] MEDS ORDERED: *HR* Phenylephrine 10 MG/ML VIAL ONE (19:50)
[2017-10-08] MEDS ORDERED: *HR* HYDROmorphone (PF) 1 MG/ML SYRINGE IVP PRN (20:04)
[2017-10-08] MEDS ORDERED: Dexamethasone 4 MG/ML VIAL ONE (20:06)
[2017-10-08] MEDS ORDERED: Ondansetron 4 MG/2 ML VIAL ONE (20:06)
[2017-10-08] MEDS ORDERED: Neostigmine Methylsulfate 3 MG/3 ML SYRINGE ONE (20:15)
--- NOTE | 2017-10-08 20:57 | Operative Note ---
Date of procedure: 10/08/17 Pre-op diagnosis: infected stage IV decubitus ulcer Post-op diagnosis: same Procedure: excisional debridement of stage IV decubitus ulcer Implants: dakin's soaked guaze Complications: none Anesthesia: GETA Local Anesthetics: 0.5% Sensorcaine HCL SubQ (cc) Surgeon: Carlito Rivera Was there an sales operations assistant present: No Estimated blood loss (cc): 10 Specimen: necrotic tissue from ulcer Condition: stable Disposition: PACU Procedure in Detail: Patient was brought into the operating room suite. Mechanical DVT prophylaxis was placed. He underwent smooth induction of anesthesia. Placed in the prone position. Prepped and draped in the usual fashion. Preoperative antibiotics were given. A timeout was held identifying the correct patient, pathology, physician, and procedure. I started by taking aerobic and anaerobic cultures. I then used a 15 blade to excise the surrounding necrotic skin. Underneath it was necrotic soft tissue that was malodorous. Along the R side, I did find an abscess that was drained. I excised all of the necrotic that I realistically could. I was able to appreciate bone at the base of the wound. The wound measured 10cmx6.5cmx0.8cm. I then placed a dakin's soaked gauze at the base, covered it with an ABD pad. I concluded the procedure. the patient tolerated the procedure and was escorted to PACU in stable condition.
[2017-10-08] MEDS ORDERED: amLODIPine 5 MG TABLET PO SCH (21:00)
--- NOTE | 2017-10-08 21:12 | Anesthesia Evaluation Post Op ---
Date of Encounter: 10/08/17 Time of Encounter: 21:11 - Vital Signs Vital Signs: Vital Signs/O2 Sat, Most Current Temp Pulse Resp BP Pulse Ox 97.8 F 92 20 109/63 98 10/08/17 20:59 10/08/17 20:59 10/08/17 20:59 10/08/17 20:59 10/08/17 20:59 - Lungs Lungs: Clear Ascult./Percussion - Airway Airway: Non-obstructed - Cardiovascular Regular Rate - Mental Status Mental Status: Asleep with brisk response to light stimulation - Nausea Vomiting Nausea Vomiting: Not Present - Hydration Hydration: NPO, Has not voided - Discharge PostOp Status: Transfer Patient to floor
[2017-10-08] MEDS ORDERED: *HR* HYDROmorphone 2 MG/ML SYRINGE IVP PRN (22:46)
[2017-10-08] MEDS: 0.9 % Sodium Chloride 1,000 ML IVC SCH (23:39)
[2017-10-09] MEDS ORDERED: Piperacillin/Tazobactam 3.375 GM/200 ML BAG IVPB SCH
[2017-10-09] MEDS: Piperacillin/Tazobactam 3.375 GM/200 ML BAG IVPB SCH ×3 (00:21→18:00)
[2017-10-09 00:39] LABS: Hematocrit 26.6 % (37.5-50.1); Hemoglobin 8.5 g/dL (12.9-16.9); Mean Corpuscular Hemoglobin 31.7 pg (28.0-33.3); Mean Corpuscular Volume 99.3 fL (83.0-100.0); Platelet Count 232 K/mcL (140-400); Red Blood Count 2.68 M/mcL (4.19-5.50); Red Cell Distribution Width 16.3 % (11.5-14.5)
[2017-10-09 00:59] LABS: BUN/Creatinine Ratio 26 (6-26); Blood Urea Nitrogen 22 mg/dL (8-23); Calcium 9.4 mg/dL (8.6-10.3); Carbon Dioxide 24 mEq/L (23-29); Chloride 103 mEq/L (98-107); Glucose 89 mg/dL (70-105); Osmolality,Calculated 275 (280-300); Phosphorous 5.6 mg/dL (2.7-4.5); Potassium 5.1 mEq/L (3.5-5.1); Sodium 131 mEq/L (136-145); eGFR For African Americans > 60 (> 60); eGFR For Non-African Americans > 60 (> 60)
[2017-10-09] MEDS ORDERED: Vancomycin 1,000 MG in D5% in Water 250 ML IVPB SCH (03:00)
[2017-10-09] MEDS: Vancomycin 1,000 MG in D5% in Water 250 ML IVPB SCH ×2 (04:58→16:00)
[2017-10-09] MEDS: *HR* Heparin 5,000 UNIT/ML VIAL SQ SCH ×2 (06:54→19:18)
--- NOTE | 2017-10-09 09:19 | Internal Med Progress Note ---
Date of Encounter: 10/09/17 Time of Encounter: 09:15 - Assessment and plan (1) Sepsis Current Visit: Yes Status: Acute Assessment and plan: Patient met severe sepsis criteria on admission with tachycardia, leukocytosis > 12,000 and an infected decubitus ulcer with abscess as well as lactic acidosis of 2.6 Lactate is improving Patient is POD 1, s/p debridement Continue vanco and Zosyn Continue IVF hydration Follow final cultures Cultures from 10/05 shows MRSA and Proteus, will await cultures fro op specimen Qualifiers: Sepsis type: sepsis due to unspecified organism Qualified Code(s): A41.9 - Sepsis, unspecified organism (2) Cellulitis Current Visit: Yes Status: Acute Assessment and plan: Of surrounding decubitus ulcer Continue Vanco and Zosyn Follow culture reports Wound care per surgery 2hrly turning Pain control Qualifiers: Site of cellulitis: unspecified site Qualified Code(s): L03.90 - Cellulitis , unspecified (3) Decubitus ulcer, stage 4 with infection Current Visit: Yes Status: Acute Assessment and plan: As above (4) COPD (chronic obstructive pulmonary disease) Current Visit: Yes Status: Chronic Assessment and plan: NO exacerbation at this time Duonebs prn Qualifiers: COPD type: emphysema Emphysema type: panlobular Qualified Code(s): J43.1 - Panlobular emphysema (5) Metastatic cancer to bone Current Visit: No Status: Chronic Assessment and plan: End stage per oncology, poor prognosis, patient is aware, palliative care is on board (6) Hyponatremia Current Visit: Yes Status: Chronic Assessment and plan: Chronic, 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 (7) Protein-calorie malnutrition, severe Current Visit: Yes Status: Chronic Assessment and plan: Continue current care Feed as tolerated Add ensure (8) Acute urinary retention Current Visit: Yes Status: Acute Assessment and plan: Keep Rodriguez catheter, possibly due to anesthesia Attempt voiding trial when patient is ready, declines for now (9) Anxiety Current Visit: Yes Status: Chronic Assessment and plan: Continue Xanax at home dose (10) Hypertension Current Visit: Yes Status: Chronic Assessment and plan: Continue Norvasc, controlled Qualifiers: Hypertension type: essential hypertension Qualified Code(s): I10 - Essential (primary) hypertension - Subjective Interval history: 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 POD 1 s/p wound debridement, op note shows abscesses and debridement done up to bone Patient is in mild painful distress on eval this morning He also developed acute urinary retention warranting placement of a Rodriguez catheter with immediate output of 1000cc He is asking to be discharged home NO new complains Palliative team has been consulted - Constitutional Vitals: Temp Pulse Resp BP Pulse Ox 97.6 F 85 16 93/56 92 10/09/17 07:25 10/09/17 07:25 10/09/17 07:25 10/09/17 07:25 10/09/17 07:25 General appearance: Present: cachectic, mild distress, A&O X 3, pleasant - Head Head exam: Present: atraumatic, normocephalic Additional comments: Right frontal bone mass - Eye Eye exam: Present: PERRL, conjuntiva pink, sclera anicteric Pupils: Present: PERRL - Neck Neck exam general surgery: Present: supple, trachea midline. Absent: lymphadenopathy - Respiratory Respiratory exam: Present: CTAB. Absent: accessory muscle use, rales, rhonchi, wheezes - Cardiovascular Cardiovascular exam: Present: RRR, +S1, +S2. Absent: diastolic murmur, gallop, rubs, systolic murmur - GI/Abdominal GI/Abdominal exam: Present: normal bowel sounds, soft, no peritoneal signs. Absent: distended, tenderness - Additional comments: Wound dressing on sacral region clean and dry, not removed - Extremities Exam Extremities exam: Present: pedal edema (R > L ankle edema, dependent, as patient is laying on his rt side), warm, radial pulses palpable and symmetrical. Absent: calf tenderness, cyanotic - Neurological Exam Neurological exam: Present: alert, CN II-XII intact, oriented X3, no focal deficits. Absent: pronater drift, facial droop, speech deficit - Skin Skin exam: Present: dry Internal Medicine: Result - Labs CBC & Chem 7: 10/09/17 00:32 10/09/17 00:32 Labs: Short CBC 10/09/17 Range/Units 00:32 WBC 9.7 (4.3-11.1) K/mcL Hgb 8.5 L (12.9-16.9) g/dL Hct 26.6 L (37.5-50.1) % Plt Count 232 (140-400) K/mcL BMP 10/09/17 00:32 Sodium 131 L Potassium 5.1 D Chloride 103 Carbon Dioxide 24 BUN 22 Creatinine 0.86 Glucose 89 Calcium 9.4 - ABG Interpretation ABG results: PT/INR, D-dimer PT 12.6 Seconds (9.4-12.1) H 10/08/17 14:05 - VTE Documentation of Mechanical Device: Intermittent pneumatic compression device Consult Discharge Plan - Plan Additional Instructions: Daily wound care- cleanse with soap and water and pat dry, pack wound with kerlex fluffs moistened with 1/4 strength Dakins solution, cover with ABD pad and tape to secure daily with Medipore Referrals: Sara Robles MD [Partnered Physician] - (Follow-up in wound care 2 weeks) Dario Díaz DO [Primary Care Provider] - (web request sent on 10/09/17)
--- NOTE | 2017-10-09 09:48 | Palliative - Consult Note ---
Date of Encounter: 10/09/17 Time of Encounter: 09:15 - Assessment and Plan (1) Advanced directives, counseling/discussion Current Visit: No Status: Acute Assessment and plan: Status changes this morning from full code to DNR ECA, DNI goals of care patient would like to be old return home. states that he she will need additional help into this in social work has been engaged to help them to get lists for 24-hour in-home help. She will certainly be hospice eligible on discharge, over hospice will not provide the level of care at the family is requesting and were actually needs. Therefore social work is working with him at this time. As the patient's desire to get home as soon as possible. However he is at this time willing to work with us to try to get the situation as well as it can be. (2) Full code status Current Visit: No Status: Acute Assessment and plan: After discussion with patient this is been changed to DNR CCA DNI. (3) Primary cancer of right lung metastatic to other site Current Visit: No Status: Chronic Assessment and plan: I spoke with his oncologist Dr. Khanna this morning given the patient's overall debilitation, as well as the worsening of his sacral decubitus wound is his opinion that no further chemotherapy should be undertaken as it will only worsen the situation with his decubitus and not provide him any further comfort from his wound from his cancer. The cancer has been progressive despite all of the chemotherapy that has been utilized thus far. 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 He presented to the emergency department with worsening of the sacral wound and was taken to the OR for debridement down to the bone. He was diagnosed with lung cancer back in May of this year been metastatic to the bone which has resulted in multiple rib fractures as well as metastases to the bone in his cervical spine as well as in his hip caused a pathologic fracture of his hip this is been since treated with a total hip replacement. Last 3-5 days his wound is been getting worse with read in extreme drainage. Did not trip to the emergency department. Fever chills or night sweats no chest pain no shortness of breath no palpitations keeley's in the emergency department was then taken to the O4 for operative debridement and is now on the hospitalist service palliative care was requested regarding care in a patient at end-stage lung cancer. Patient states his pain is a very deep ache pain is well-controlled with current medications. He does state that his hurts worse when moving around better with rest. Medications do seem to help. However he also wishes to maintain all clear sensorium. At this time he is denying any pain although he appears to be in pain does not wish take anything for it. CC: Nir Webb MD Weakness cubitus to the bone Past Med Surg Social Fam HX - Past Medical History Medical history: cancer, COPD, hypertension, other Psychiatric history: no psych history - Past Surgical History Surgical History: orthopedic, other, other - Social History Smoking Status: Light tobacco smoker Smokeless Tobacco Status: No Alcohol use: none Drug use: none - Family History Brother Living Status: Hx Family Cancer: Yes Grandmother Living Status: Hx Family Cancer: Yes Grandfather Living Status: Hx Family Cancer: Yes Father Living Status: Hx Family Cardiac Disorders: No Hx Family Cancer: No Medications and Allergies Albuterol Sulfate [Ventolin Hfa] 2 puff IH Q4H PRN 05/23/17 [History] Umeclidinium Brm/Vilanterol Tr [Anoro Ellipta 62.5-25 Mcg INH] 1 puff IH DAILY 05/23/17 [History] amLODIPine [Norvasc] 5 mg PO BID 05/23/17 [History] Folic Acid 1 mg PO DAILY #30 tablet 06/05/17 [Rx] Docusate [Colace] 100 mg PO BID PRN 06/18/17 [History] Acetaminophen [Tylenol] 650 mg PO Q6HR PRN tablet 07/21/17 [Rx] Quetiapine Fumarate [Seroquel] 25 mg PO HS #30 tablet 07/21/17 [Rx] Dronabinol [Marinol] 5 mg PO BID #60 capsule 09/19/17 [Rx] ALPRAZolam [Xanax 0.25 MG Tablet] 0.25 mg PO TID PRN #90 tablet 09/27/17 [Rx] Morphine Immed Rel [Morphine Sulfate] 15 mg PO Q4HR PRN 7 Days #28 tab 10/05/17 [Rx] Sulfamethoxazole/Trimeth DS [Bactrim DS] 2 each PO BID #28 tablet 10/05/17 [Rx] 3 Allergy/AdvReac Type Severity Reaction Status Date / Time codeine Allergy Hives Verified 10/08/17 14:44 - Constitutional Constitutional ROS PAL: decreased appetite, anorexia - EENT Eyes: no discharge, no pain Ears: no ear discharge, no ear pain Ears, nose, mouth, throat: change in voice, dry mouth, no dysphagia, no epistaxis, no facial pain - Cardiovascular Cardiovascular ROS: no chest pain, no chest pain at rest - Respiratory Respiratory: dyspnea - Gastrointestinal Gastrointestinal: no constipation, no diarrhea, no nausea, no vomiting - Genitourinary Genitourinary ROS male: no urinary hesitancy, no urinary incontinence, no urinary urgency - Musculoskeletal Musculoskeletal ROS IM: no muscle weakness, no myalgias - Integumentary ROS Integumentary: skin ulcer, sores, wounds - Neurological Neurological ROS: focal weakness, no dizziness, no frequent falls - Psychiatric Psychiatric general PM: change in appetite, no confusion, no depression, no hopelessness, no irritability - Endocrine Additional comments: no dm no thyroid Palliative Care-Exam - Constitutional Vitals: Temp Pulse Resp BP Pulse Ox 97.6 F 85 16 93/56 92 10/09/17 07:25 10/09/17 07:25 10/09/17 07:25 10/09/17 07:25 10/09/17 07:25 General appearance: Present: mild distress (Appears to have at least mild pain, however the patient denies), thin - Head Head Exam: Present: atraumatic, normal inspection - Eye Eye exam: Present: normal appearance - Respiratory Respiratory exam: Present: decreased breath sounds - Cardiovascular Cardiovascular exam: Present: RRR - GI/Abdominal Exam GI/Abdominal exam: Present: normal bowel sounds, soft. Absent: tenderness - Catheter Type: Urethral (Rodriguez) - Extremities Exam Extremities exam: Present: normal inspection. Absent: pedal edema, tenderness - Neurological Exam Neurological exam: Present: alert, oriented X3, no focal deficits - Psychiatric Psychiatric exam: Present: normal affect, normal mood. Absent: agitated, anxious, homicidal ideation, suicidal ideation - Skin Skin exam: Present: dry, warm. Absent: intact (Sacral ulcer he did yesterday.) Internal Medicine - CN: Reslt - Labs CBC & Chem 7: 10/09/17 00:32 10/09/17 00:32 Labs: Short CBC 10/09/17 Range/Units 00:32 WBC 9.7 (4.3-11.1) K/mcL Hgb 8.5 L (12.9-16.9) g/dL Hct 26.6 L (37.5-50.1) % Plt Count 232 (140-400) K/mcL BMP 10/09/17 00:32 Sodium 131 L Potassium 5.1 D Chloride 103 Carbon Dioxide 24 BUN 22 Creatinine 0.86 Glucose 89 Calcium 9.4 - ABG Interpretation ABG results: PT/INR, D-dimer PT 12.6 Seconds (9.4-12.1) H 10/08/17 14:05 Consult Discharge Plan - Plan Referrals: Dario Díaz DO [Primary Care Provider] - Palliative Quality Palliative Quality: Screen for Code Status: Yes, Screen for Goals of Care: Yes, Screen for Pain: Yes, If Pain Regimen Started, Initiate Bowel Regimen: Yes, Screen for Nausea/Vomitting: Yes Code Status: 10/08/17 16:47 Resuscitation Status: Active [RES] Routine Comment: Resuscitation Status: Full Code Resuscitation Status: Active [RES] Routine Resuscitation Status: [id number] Comment:
[2017-10-09] MEDS ORDERED: ANORO ELLIPTA IH SCH (10:00)
[2017-10-09] MEDS: Albuterol 2.5 MG/3 ML NEBULIZER IH SCH ×3 (10:48→22:53)
[2017-10-09] MEDS: Tiotropium 18 MCG inhalation IH SCH (10:53)
[2017-10-09] MEDS: Folic Acid 1 MG TABLET PO SCH (11:02)
[2017-10-09] MEDS: amLODIPine 5 MG TABLET PO SCH ×2 (11:02→20:27)
--- NOTE | 2017-10-09 11:49 | General Surgery Progress Note ---
<Elif Reese Kendrick - Last Filed: 10/09/17 12:05> Date of Encounter: 10/09/17 Time of Encounter: 11:30 - Assessment and Plan (1) Pressure ulcer of sacral region, stage 4 Current Visit: Yes Status: Acute POD #1 excisional debridement of stage IV decubitus ulcer with Dr. Rivera Daily wound care- cleanse with soap and water and pat dry, pack wound with kerlex fluffs moistened with 1/4 strength Dakins solution, cover with ABD pad and tape to secure daily with Medipore Turn every 2 hours to avoid pressure on sacrum IV antibiotics- Zosyn and Vancomycin Supportive care and pain control Outpatient f/u in wound care (2) Primary cancer of right lung metastatic to other site Current Visit: No Status: Chronic Followed per Dr. Khanna with oncology Subjective Patient reports: no new complaints, still having pain, afebrile Objective Vital Signs - Last 8 Hours Temp Pulse Resp BP Pulse Ox 10/09/17 11:36 97.7 F 90 14 92/52 90 10/09/17 10:54 16 92 10/09/17 07:25 97.6 F 85 16 93/56 92 10/09/17 03:48 97.7 F 84 16 107/53 98 Intake and Output 10/08/17 10/09/17 10/09/17 23:59 07:59 15:59 Intake Total 1250 / 1250 450 / 450 Output Total 2400 / 2400 Balance 1240 / 1240 -1950 / -1950 Intake: IV Fluids 1250 / 1250 450 / 450 0.9 % Sodium Chloride 1,000 ML 1000 / 1000 @ 3750 mls/hr IVC .Q16M [facility] Rx# :[id number] Zosyn Premix 3.375 GM/200 ML 3. 200 / 200 375 gm In 200 ml @ 50 mls/hr IVPB Q8H [facility] Rx#:[id number] Vancocin 1,000 MG In Dextrose 5 250 / 250 250 / 250 % 250 ML @ 167 mls/hr IVPB Q12H [facility] Rx#:[id number] Output: Estimated Blood Loss Catheter 2400 / 2400 Urethral (Robertson) 1150 / 1150 Other: Weight 64.047 kg Patient Weight 10/09/17 23:59 Weight 64.047 kg - General physical appearance moderate distress, moderate pain, cachectic, chronically ill - Eyes normal ocular movement, pale - ENT dry mucosa, atraumatic, normocephalic - Neck Neck exam: trachea midline - Respiratory normal respiratory effort - Cardiovascular Cardiovascular exam: Present: RRR - Abdomen Abdomen: Present: soft, non tender - Incision Incision: Present: serosanguinous, open (sacral wound open with 60% granulation tissue, 40% fibrin; small amount of serousang. drainage noted without odor; no surrounding erythema or induration present; undermining noted.) - Genitourinary other (robertson catheter to SD with clear, yellow urine noted) - Neurologic CN 2-12 grossly intact - Musculoskeletal other (severe deconditioning noted) - Psychiatric oriented to time, oriented to person, oriented to place, speech is normal, memory intact - Labs 10/09/17 00:32 10/09/17 00:32 Diabetes panel 10/09/17 Range/Units 00:32 Sodium 131 L (136-145) mEq/L Potassium 5.1 D (3.5-5.1) mEq/L Chloride 103 (98-107) mEq/L Carbon Dioxide 24 (23-29) mEq/L BUN 22 (8-23) mg/dL Creatinine 0.86 (0.70-1.30) mg/dL Glucose 89 (70-105) mg/dL Calcium 9.4 (8.6-10.3) mg/dL Calcium panel 10/09/17 Range/Units 00:32 Calcium 9.4 (8.6-10.3) mg/dL Phosphorus 5.6 H (2.7-4.5) mg/dL Pituitary panel 10/09/17 Range/Units 00:32 Sodium 131 L (136-145) mEq/L Potassium 5.1 D (3.5-5.1) mEq/L Chloride 103 (98-107) mEq/L Carbon Dioxide 24 (23-29) mEq/L BUN 22 (8-23) mg/dL Creatinine 0.86 (0.70-1.30) mg/dL Glucose 89 (70-105) mg/dL Calcium 9.4 (8.6-10.3) mg/dL Adrenal panel 10/09/17 Range/Units 00:32 Sodium 131 L (136-145) mEq/L Potassium 5.1 D (3.5-5.1) mEq/L Chloride 103 (98-107) mEq/L Carbon Dioxide 24 (23-29) mEq/L BUN 22 (8-23) mg/dL Creatinine 0.86 (0.70-1.30) mg/dL Glucose 89 (70-105) mg/dL Calcium 9.4 (8.6-10.3) mg/dL - VTE Documentation of Mechanical Device: Intermittent pneumatic compression device Consult Discharge Plan - Plan Additional Instructions: Daily wound care- cleanse with soap and water and pat dry, pack wound with kerlex fluffs moistened with 1/4 strength Dakins solution, cover with ABD pad and tape to secure daily with Medipore Referrals: Dario Díaz DO [Primary Care Provider] - (web request sent on 10/09/17) Sara Robles MD [Partnered Physician] - (Follow-up in wound care 2 weeks) - Attending Attestation For this encounter, I have reviewed the RELEASE COORDINATOR or PA documentation, treatment plan, and medical decision making; and I have had face to face time with this patient. <Carlito Rivera - Last Filed: 10/09/17 12:50> Date of Encounter: 10/09/17 - Assessment and Plan (1) Decubitus ulcer Current Visit: No Status: Chronic Qualifiers: Pressure ulcer location: buttock Pressure ulcer stage: stage 4 Laterality : unspecified laterality Qualified Code(s): L89.304 - Pressure ulcer of unspecified buttock, stage 4 Objective Vital Signs - Last 8 Hours Temp Pulse Resp BP Pulse Ox 10/09/17 11:36 97.7 F 90 14 92/52 90 10/09/17 10:54 16 92 10/09/17 07:25 97.6 F 85 16 93/56 92 Intake and Output 10/08/17 10/09/17 10/09/17 23:59 07:59 15:59 Intake Total 1250 / 1250 450 / 450 Output Total 2400 / 2400 Balance 1240 / 1240 -1950 / -1950 Intake: IV Fluids 1250 / 1250 450 / 450 0.9 % Sodium Chloride 1,000 ML 1000 / 1000 @ 3750 mls/hr IVC .Q16M [facility] Rx# :[id number] Zosyn Premix 3.375 GM/200 ML 3. 200 / 200 375 gm In 200 ml @ 50 mls/hr IVPB Q8H [facility] Rx#:[id number] Vancocin 1,000 MG In Dextrose 5 250 / 250 250 / 250 % 250 ML @ 167 mls/hr IVPB Q12H [facility] Rx#:[id number] Output: Estimated Blood Loss Catheter 2400 / 2400 Urethral (Robertson) 1150 / 1150 Other: Weight 64.047 kg Patient Weight 10/09/17 23:59 Weight 64.047 kg - Incision Incision: Present: open (sacral wound open with 60% granulation tissue, 40% fibrin; small amount of serousang. drainage noted without odor; no surrounding erythema or induration present; undermining noted.) - Genitourinary other - Labs 10/09/17 00:32 10/09/17 00:32 Diabetes panel 10/09/17 Range/Units 00:32 Sodium 131 L (136-145) mEq/L Potassium 5.1 D (3.5-5.1) mEq/L Chloride 103 (98-107) mEq/L Carbon Dioxide 24 (23-29) mEq/L BUN 22 (8-23) mg/dL Creatinine 0.86 (0.70-1.30) mg/dL Glucose 89 (70-105) mg/dL Calcium 9.4 (8.6-10.3) mg/dL Calcium panel 10/09/17 Range/Units 00:32 Calcium 9.4 (8.6-10.3) mg/dL Phosphorus 5.6 H (2.7-4.5) mg/dL Pituitary panel 10/09/17 Range/Units 00:32 Sodium 131 L (136-145) mEq/L Potassium 5.1 D (3.5-5.1) mEq/L Chloride 103 (98-107) mEq/L Carbon Dioxide 24 (23-29) mEq/L BUN 22 (8-23) mg/dL Creatinine 0.86 (0.70-1.30) mg/dL Glucose 89 (70-105) mg/dL Calcium 9.4 (8.6-10.3) mg/dL Adrenal panel 10/09/17 Range/Units 00:32 Sodium 131 L (136-145) mEq/L Potassium 5.1 D (3.5-5.1) mEq/L Chloride 103 (98-107) mEq/L Carbon Dioxide 24 (23-29) mEq/L BUN 22 (8-23) mg/dL Creatinine 0.86 (0.70-1.30) mg/dL Glucose 89 (70-105) mg/dL Calcium 9.4 (8.6-10.3) mg/dL - Attending Attestation I have personally seen and examined the patient. I have reviewed pertinent labs , imaging, progress notes, including this one. I agree with the above assessment and plan and wish to include the following... 66M h/o stage IV lung cancer s/p adjuvant therapy with stage IV sacral decubitus ulcer POD #1 s/p excisional debridement; AF, VSS; wound looks good post op; good granulation tissue; no odor; no surrounding erythema; cont with dressing changes, pressure relief including q2hr turn and low air loss mattress , and antibiotics; cares per primary; can follow up in wound clinic after discharge; Call with questions or new concerns
[2017-10-09] MEDS ORDERED: *HR* Morphine Immed Rel 30 MG TABLET PO PRN ×2 (12:45→14:15)
[2017-10-09] MEDS: 0.9 % Sodium Chloride 1,000 ML IVC SCH (13:14)
--- NOTE | 2017-10-09 20:04 | Electrocardiograph Report ---
[place] [address] Test Date: 2017-10-08 Pat Name: Gómez Santoyo Department: 104 Room: 2A48 Gender: M Acid Remover: [facility] : 1950 Requested By: Caden Azar Order Number: [id number] Reading MD: Alfredo Ann MD Measurements Intervals [place] Rate: 93 P: 63 VT: 127 QRS: 28 QRSD: 110 T: 43 QT: 372 QTc: 423 Interpretive Statements SINUS RHYTHM INFERIOR MYOCARDIAL INFARCTION , PROBABLY OLD WITH POSTERIOR EXTENSION Electronically Signed On 10-09-2017 20:03:29 EST by Alfredo Ann MD
[2017-10-09] MEDS: Sennosides/Docusate Sodium TABLET PO SCH (20:27)
[2017-10-10] MEDS: *HR* Morphine 2 MG/ML SYRINGE IVP PRN ×5 (00:40→22:45)
[2017-10-10] MEDS: Piperacillin/Tazobactam 3.375 GM/200 ML BAG IVPB SCH ×2 (00:48→10:39)
[2017-10-10 02:09] LABS: Basophils % 0.1 %; Eosinophils % 0.1 %; Hemoglobin 8.1 g/dL (12.9-16.9); Immature Granulocytes % 1.2 % (0-4); Lymphocytes # 0.3 K/mcL (0.6-4.6); Lymphocytes % 3.2 %; Mean Corpuscular HGB Conc 32.4 g/dL (31.6-35.5); Mean Corpuscular Hemoglobin 31.9 pg (28.0-33.3); Mean Corpuscular Volume 98.4 fL (83.0-100.0); Mean Platelet Volume 8.8 fL (9.4-12.4); Monocytes # 0.8 K/mcL (0.0-1.3); Neutrophils # 8.6 K/mcL (1.6-8.9); Platelet Count 254 K/mcL (140-400); Red Blood Count 2.54 M/mcL (4.19-5.50); Red Cell Distribution Width 16.3 % (11.5-14.5); Segmented Neutrophils % 87.4 %
[2017-10-10 02:25] LABS: BUN/Creatinine Ratio 26 (6-26); Blood Urea Nitrogen 20 mg/dL (8-23); Calcium 8.8 mg/dL (8.6-10.3); Carbon Dioxide 26 mEq/L (23-29); Chloride 105 mEq/L (98-107); Glucose 94 mg/dL (70-105); Osmolality,Calculated 282 (280-300); Potassium 4.2 mEq/L (3.5-5.1); Sodium 135 mEq/L (136-145); eGFR For African Americans > 60 (> 60); eGFR For Non-African Americans > 60 (> 60)
[2017-10-10] MEDS: Vancomycin 1,000 MG in D5% in Water 250 ML IVPB SCH (02:58)
[2017-10-10] MEDS: Albuterol 2.5 MG/3 ML NEBULIZER IH SCH ×2 (04:37→10:25)
[2017-10-10] MEDS: *HR* Heparin 5,000 UNIT/ML VIAL SQ SCH ×2 (06:37→17:43)
[2017-10-10] MEDS ORDERED: Aminoglycoside Consult 1 EACH MC ONE (08:21)
--- NOTE | 2017-10-10 09:11 | Palliative Progress Note ---
<Jayleen Kapadia - Last Filed: 10/10/17 09:06> Date of Encounter: 10/10/17 Time of Encounter: 09:00 - Assessment and plan (1) Advanced directives, counseling/discussion Current Visit: No Status: Acute Assessment and plan: The patient's code status is [id number] as of 10/09/2017. The patient reports that he would like to return home as soon as possible. He is hospice eligible. The stated that she will need help 24hr a day. Social work is providing her with options that she may choose from for hospice. Due to increased care needs the goal is to see if he qualifies for NH care at least temporarily. The patient was informed of plan and is agreeable. (2) Primary cancer of right lung metastatic to other site Current Visit: No Status: Chronic Assessment and plan: No changes in current treatment plan. Dr. Khanna had been contacted about the patient's debilitation and admission for debridement of decubitus ulcer. Due to progression of disease despite chemotherapy treatment and with patient's new ulcer it is his opinion that chemotherapy would not be of help and would actually worsen current condition. Family had been informed of the discussion and agree that they do not want to continue chemotherapy but instead pursue hospice. The patient requested oral pain medication morphine PRN so that he may have control of his pain. (3) Metastatic cancer to bone Current Visit: No Status: Chronic - Time Spent With Patient Total time spent is greater than 50% in coordination of care (as documented) at patient's floor/unit and/or counseling patient: - Subjective Interval history: Patient has no complaints at this time. He requested that Dr. Rodriguez and I return when his arrives to the hospital so to make sure that everyone is on the same page for management of care and future discharge. - Constitutional Vitals: Abnormal lab results RBC 2.54 M/mcL (4.19-5.50) L 10/10/17 02:02 Hgb 8.1 g/dL (12.9-16.9) L 10/10/17 02:02 Hct 25.0 % (37.5-50.1) L 10/10/17 02:02 RDW 16.3 % (11.5-14.5) H 10/10/17 02:02 MPV 8.8 fL (9.4-12.4) L 10/10/17 02:02 Lymphocytes # 0.3 K/mcL (0.6-4.6) L 10/10/17 02:02 Nucleated RBCs/100 WBC 0.2 /100 WBC (0) H 10/08/17 14:05 PT 12.6 Seconds (9.4-12.1) H 10/08/17 14:05 Sodium 135 mEq/L (136-145) L 10/10/17 02:02 Phosphorus 5.6 mg/dL (2.7-4.5) H 10/09/17 00:32 Alkaline Phosphatase 202 Units/L (34-104) H 10/08/17 14:05 Serum Total Protein 6.3 g/dL (6.4-8.9) L 10/08/17 14:05 Albumin 3.0 g/dL (3.5-5.7) L 10/08/17 14:05 Albumin/Globulin Ratio 0.9 (1.1-2.2) L 10/08/17 14:05 General appearance: Present: no acute distress - Head Head exam: Present: atraumatic, normocephalic - Respiratory Respiratory exam: Present: decreased breath sounds - Cardiovascular Cardiovascular exam: Present: RRR - GI/Abdominal GI/Abdominal exam: Present: normal bowel sounds, soft. Absent: tenderness - Additional comments: urethral robertson - Extremities Exam Extremities exam: Present: normal inspection - Neurological Exam Neurological exam: Present: alert, oriented X3. Absent: no focal deficits - Psychiatric Psychiatric exam: Present: normal affect, normal mood Palliative Quality Palliative Quality: Screen for Code Status: Yes, Screen for Goals of Care: Yes, Screen for Pain: Yes, If Pain Regimen Started, Initiate Bowel Regimen: Yes, Screen for Nausea/Vomitting: Yes Code Status: 10/08/17 16:47 Resuscitation Status: Active [RES] Routine Comment: Resuscitation Status: [id number] - Labs CBC & Chem 7: 10/10/17 02:02 10/10/17 02:02 Labs: Laboratory Results - last 24 hr 10/10/17 10/10/17 10/10/17 02:02 02:02 02:02 WBC 9.9 RBC 2.54 L Hgb 8.1 L Hct 25.0 L MCV 98.4 MCH 31.9 MCHC 32.4 RDW 16.3 H Plt Count 254 MPV 8.8 L Immature Gran % 1.2 Seg Neutrophils % 87.4 Lymphocytes % 3.2 Monocytes % 8.0 Eosinophils % 0.1 Basophils % 0.1 Neutrophils # 8.6 Lymphocytes # 0.3 L Monocytes # 0.8 Eosinophils # 0.0 Basophils # 0.0 Sodium 135 L Potassium 4.2 Chloride 105 Carbon Dioxide 26 BUN 20 Creatinine 0.78 Est GFR ( Amer) > 60 Est GFR (Non-Af Amer) > 60 BUN/Creatinine Ratio 26 Glucose 94 Calculated Osmolality 282 Calcium 8.8 Vancomycin Trough 16.9 - ABG Interpretation ABG results: PT/INR, D-dimer PT 12.6 Seconds (9.4-12.1) H 10/08/17 14:05 Consult Discharge Plan - Plan Additional Instructions: Daily wound care- cleanse with soap and water and pat dry, pack wound with kerlex fluffs moistened with 1/4 strength Dakins solution, cover with ABD pad and tape to secure daily with Medipore Referrals: Carlito Rivera MD [Non-Partnered Physician] - (F/u in 7-10 days in the outpatient wound care with Dr. Rivera) Dario Díaz DO [Primary Care Provider] - (web request sent on 10/09/17) <Vin Roberto - Last Filed: 10/10/17 11:02> Date of Encounter: 10/10/17 - Assessment and plan (1) Advanced directives, counseling/discussion Current Visit: No Status: Acute (2) Full code status Current Visit: No Status: Acute (3) Primary cancer of right lung metastatic to other site Current Visit: No Status: Chronic (4) Metastatic cancer to bone Current Visit: No Status: Chronic (5) Dysphagia Current Visit: Yes Status: Acute Assessment and plan: pt has admitted to family about burning no sign of thrush in mouth but there is an area on left side that is irritated will start nystatin swish and swallow and magic mouth wash (d/w hospitalist as well) - Time Spent With Patient Total time spent is greater than 50% in coordination of care (as documented) at patient's floor/unit and/or counseling patient: - Constitutional Vitals: Abnormal lab results RBC 2.54 M/mcL (4.19-5.50) L 10/10/17 02:02 Hgb 8.1 g/dL (12.9-16.9) L 10/10/17 02:02 Hct 25.0 % (37.5-50.1) L 10/10/17 02:02 RDW 16.3 % (11.5-14.5) H 10/10/17 02:02 MPV 8.8 fL (9.4-12.4) L 10/10/17 02:02 Lymphocytes # 0.3 K/mcL (0.6-4.6) L 10/10/17 02:02 Nucleated RBCs/100 WBC 0.2 /100 WBC (0) H 10/08/17 14:05 PT 12.6 Seconds (9.4-12.1) H 10/08/17 14:05 Sodium 135 mEq/L (136-145) L 10/10/17 02:02 Phosphorus 5.6 mg/dL (2.7-4.5) H 10/09/17 00:32 Alkaline Phosphatase 202 Units/L (34-104) H 10/08/17 14:05 Serum Total Protein 6.3 g/dL (6.4-8.9) L 10/08/17 14:05 Albumin 3.0 g/dL (3.5-5.7) L 10/08/17 14:05 Albumin/Globulin Ratio 0.9 (1.1-2.2) L 10/08/17 14:05 - ENT ENT exam: Present: mucous membranes dry (lip scabbed on l side no thrush noted) Palliative Quality Code Status: 10/08/17 16:47 Resuscitation Status: Active [RES] Routine Comment: Resuscitation Status: [id number] - Labs CBC & Chem 7: 10/10/17 02:02 10/10/17 02:02 Labs: Laboratory Results - last 24 hr 10/10/17 10/10/17 10/10/17 02:02 02:02 02:02 WBC 9.9 RBC 2.54 L Hgb 8.1 L Hct 25.0 L MCV 98.4 MCH 31.9 MCHC 32.4 RDW 16.3 H Plt Count 254 MPV 8.8 L Immature Gran % 1.2 Seg Neutrophils % 87.4 Lymphocytes % 3.2 Monocytes % 8.0 Eosinophils % 0.1 Basophils % 0.1 Neutrophils # 8.6 Lymphocytes # 0.3 L Monocytes # 0.8 Eosinophils # 0.0 Basophils # 0.0 Sodium 135 L Potassium 4.2 Chloride 105 Carbon Dioxide 26 BUN 20 Creatinine 0.78 Est GFR ( Amer) > 60 Est GFR (Non-Af Amer) > 60 BUN/Creatinine Ratio 26 Glucose 94 Calculated Osmolality 282 Calcium 8.8 Vancomycin Trough 16.9 - ABG Interpretation ABG results: PT/INR, D-dimer PT 12.6 Seconds (9.4-12.1) H 10/08/17 14:05
[2017-10-10] MEDS: Folic Acid 1 MG TABLET PO SCH (09:40)
[2017-10-10] MEDS: Sennosides/Docusate Sodium TABLET PO SCH ×2 (09:40→20:18)
[2017-10-10] MEDS: amLODIPine 5 MG TABLET PO SCH ×2 (09:42→20:20)
[2017-10-10] MEDS: levoFLOXacin 750 MG TABLET PO SCH (09:42)
[2017-10-10] MEDS: Tiotropium 18 MCG inhalation IH SCH (10:21)
--- NOTE | 2017-10-10 10:43 | Event Note ---
Date of Encounter: 10/10/17 Time of Encounter: 08:00 No acute changes overnight. Wound care per bedside RN. Noted palliative consult. Pt will need follow-up in outpatinet wound care with Dr. Rivera, daily wound care, Dakins 1/4 strength, and dressing supplies/tape at d/c. Surgery will sign off at this time. Thank you for allowing us to participate in Dr. Santoyo's care. - Patient Status Disposition: Still a Patient Condition: Serious - Discharge Instructions Follow Up With: Dario Díaz DO [Primary Care Provider] - (web request sent on 10/09/17) Carlito Rivera MD [Non-Partnered Physician] - (F/u in 7-10 days in the outpatient wound care with Dr. Rivera) Additional Instructions: Daily wound care- cleanse with soap and water and pat dry, pack wound with kerlex fluffs moistened with 1/4 strength Dakins solution, cover with ABD pad and tape to secure daily with Medipore
[2017-10-10] MEDS: Magic Mouthwash 10 ML UD Cup PO SCH ×2 (11:27→16:14)
--- NOTE | 2017-10-10 11:33 | Internal Med Progress Note ---
Date of Encounter: 10/10/17 Time of Encounter: 11:30 - Assessment and plan (1) Sepsis Current Visit: Yes Status: Acute Assessment and plan: Patient met severe sepsis criteria on admission with tachycardia, leukocytosis > 12,000 and an infected decubitus ulcer with abscess as well as lactic acidosis of 2.6 Lactate is improving Patient is POD 2, s/p debridement Wound culture with proteus mirabilis, blood culture prelim negative Will change antibiotics to levaquin po based on sensitivity from 10/05. Leukocytosis resolved Continue to monitor Qualifiers: Sepsis type: sepsis due to unspecified organism Qualified Code(s): A41.9 - Sepsis, unspecified organism (2) Cellulitis Current Visit: Yes Status: Acute Assessment and plan: As above 2hrly turning Pain control Qualifiers: Site of cellulitis: unspecified site Qualified Code(s): L03.90 - Cellulitis , unspecified (3) Decubitus ulcer, stage 4 with infection Current Visit: Yes Status: Acute Assessment and plan: As above (4) COPD (chronic obstructive pulmonary disease) Current Visit: Yes Status: Chronic Assessment and plan: NO exacerbation at this time Duonebs prn Qualifiers: COPD type: emphysema Emphysema type: panlobular Qualified Code(s): J43.1 - Panlobular emphysema (5) Metastatic cancer to bone Current Visit: Yes Status: Chronic Assessment and plan: End stage per oncology, poor prognosis, patient is aware, palliative care is on board Goal is for home hospice (6) Hyponatremia Current Visit: Yes Status: Chronic Assessment and plan: Chronic, stable, 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 (7) Protein-calorie malnutrition, severe Current Visit: Yes Status: Chronic Assessment and plan: Continue current care Feed as tolerated Add ensure (8) Acute urinary retention Current Visit: Yes Status: Acute Assessment and plan: Keep Rodriguez catheter, possibly due to anesthesia Attempt voiding trial when patient is ready, declines for now (9) Anxiety Current Visit: Yes Status: Chronic Assessment and plan: Continue Xanax at home dose (10) Hypertension Current Visit: Yes Status: Chronic Assessment and plan: Continue Norvasc, controlled Qualifiers: Hypertension type: essential hypertension Qualified Code(s): I10 - Essential (primary) hypertension - Subjective Interval history: 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 POD 2 s/p wound debridement, op note shows abscesses and debridement done up to bone He developed acute urinary retention warranting placement of a Rodriguez catheter with immediate output of 1000cc He complained of a burning sensation on swallowing, he does not have oral thrush Palliative team is following and plan is to discharge to home hospice Wound culture is growing proteus mirabilis - Constitutional Vitals: Temp Pulse Resp BP Pulse Ox 98.3 F 97 18 100/56 92 10/10/17 10:54 10/10/17 10:54 10/10/17 10:54 10/10/17 10:54 10/10/17 10:54 General appearance: Present: cachectic, mild distress, A&O X 3, pleasant - Head Additional comments: Right frontal bone mass - Eye Eye exam: Present: PERRL, conjuntiva pink, sclera anicteric Pupils: Present: PERRL - ENT ENT exam: Present: mucous membranes dry Additional comments: No thrush - Neck Neck exam general surgery: Present: supple, trachea midline. Absent: lymphadenopathy - Respiratory Respiratory exam: Present: CTAB. Absent: accessory muscle use, rales, rhonchi, wheezes - Cardiovascular Cardiovascular exam: Present: RRR, +S1, +S2. Absent: diastolic murmur, gallop, rubs, systolic murmur - Additional comments: Wound dressing on sacral region clean and dry, not removed - Extremities Exam Extremities exam: Present: pedal edema ((R > L ankle edema, dependent, as patient is laying on his rt side)), warm, radial pulses palpable and symmetrical. Absent: calf tenderness, cyanotic - Neurological Exam Neurological exam: Present: alert, CN II-XII intact, oriented X3, no focal deficits. Absent: pronater drift, facial droop, speech deficit - Skin Skin exam: Present: dry, intact Internal Medicine: Result - Labs CBC & Chem 7: 10/10/17 02:02 10/10/17 02:02 Labs: Short CBC 10/10/17 Range/Units 02:02 WBC 9.9 (4.3-11.1) K/mcL Hgb 8.1 L (12.9-16.9) g/dL Hct 25.0 L (37.5-50.1) % Plt Count 254 (140-400) K/mcL Neutrophils # 8.6 (1.6-8.9) K/mcL BMP 10/10/17 02:02 Sodium 135 L Potassium 4.2 Chloride 105 Carbon Dioxide 26 BUN 20 Creatinine 0.78 Glucose 94 Calcium 8.8 - ABG Interpretation ABG results: PT/INR, D-dimer PT 12.6 Seconds (9.4-12.1) H 10/08/17 14:05 - VTE Documentation of Mechanical Device: Intermittent pneumatic compression device Consult Discharge Plan - Plan Additional Instructions: Daily wound care- cleanse with soap and water and pat dry, pack wound with kerlex fluffs moistened with 1/4 strength Dakins solution, cover with ABD pad and tape to secure daily with Medipore Referrals: Carlito Rivera MD [Non-Partnered Physician] - (F/u in 7-10 days in the outpatient wound care with Dr. Rivera) Anna Marie Bishop CNP [Advanced Practice Nurse] - 10/17/17 1:45 pm
[2017-10-10] MEDS: Nystatin SUSP 5 ML UD.LIQ PO SCH ×3 (13:28→20:20)
[2017-10-11] MEDS: *HR* Morphine 2 MG/ML SYRINGE IVP PRN ×5 (03:08→21:19)
[2017-10-11] MEDS: *HR* Heparin 5,000 UNIT/ML VIAL SQ SCH ×2 (06:27→18:03)
[2017-10-11] MEDS: Magic Mouthwash 10 ML UD Cup PO SCH (07:41)
[2017-10-11] MEDS: amLODIPine 5 MG TABLET PO SCH ×2 (07:42→21:18)
[2017-10-11] MEDS: levoFLOXacin 750 MG TABLET PO SCH (07:42)
[2017-10-11] MEDS: Sennosides/Docusate Sodium TABLET PO SCH ×2 (07:42→21:18)
[2017-10-11] MEDS: Nystatin SUSP 5 ML UD.LIQ PO SCH (07:42)
[2017-10-11] MEDS: Folic Acid 1 MG TABLET PO SCH (07:42)
--- NOTE | 2017-10-11 08:51 | Palliative Progress Note ---
<Jayleen Kapadia - Last Filed: 10/11/17 08:57> Date of Encounter: 10/11/17 Time of Encounter: 08:46 - Assessment and plan (1) Advanced directives, counseling/discussion Current Visit: No Status: Acute Assessment and plan: The status is unchanged thus far, still waiting on the processing for the patient to return home with assistance. The patient's code status is DNR-CCA- DNI as of 10/09/2017. The patient reports that he would like to return home as soon as possible. He is hospice eligible. The stated that she will need help 24hr a day. Social work is providing her with options that she may choose from for hospice. Due to increased care needs the goal is to see if he qualifies for NH care at least temporarily. The patient was informed of plan and is agreeable. (2) Full code status Current Visit: No Status: Acute Assessment and plan: The patient's code status was changed from full code to [id number] as of 2016. (3) Dysphagia Current Visit: Yes Status: Acute Assessment and plan: The patient reports that the magic mouth wash and nystatin are not helping his dysphagia. An exam of his mouth did not demonstrate thrush. He stated that the burning sensation has been present for awhile and attributes it to chemotherapy. He does not want to try any other chlorasceptic spray. (4) Primary cancer of right lung metastatic to other site Current Visit: No Status: Chronic Assessment and plan: No changes in current treatment plan. Dr. Khanna had been contacted about the patient's debilitation and admission for debridement of decubitus ulcer. Due to progression of disease despite chemotherapy treatment and with patient's new ulcer it is his opinion that chemotherapy would not be of help and would actually worsen current condition. Family had been informed of the discussion and agree that they do not want to continue chemotherapy but instead pursue hospice. The patient requested oral pain medication morphine PRN so that he may have control of his pain and prn IV morphine. The patient reported that his pain was not well controlled yet and agreed to an increase in dose of morphine. (5) Metastatic cancer to bone Current Visit: Yes Status: Chronic - Time Spent With Patient Total time spent is greater than 50% in coordination of care (as documented) at patient's floor/unit and/or counseling patient: - Subjective Interval history: He requested that [employer] comes to discuss his discharge options again. He reports that the magic mouth wash is not helping the burning in his throat. He does want to increase his pain medication dose for better control of pain. He would like us to explain code status to his son when he comes to visit. - Constitutional Vitals: Abnormal lab results RBC 2.54 M/mcL (4.19-5.50) L 10/10/17 02:02 Hgb 8.1 g/dL (12.9-16.9) L 10/10/17 02:02 Hct 25.0 % (37.5-50.1) L 10/10/17 02:02 RDW 16.3 % (11.5-14.5) H 10/10/17 02:02 MPV 8.8 fL (9.4-12.4) L 10/10/17 02:02 Lymphocytes # 0.3 K/mcL (0.6-4.6) L 10/10/17 02:02 Nucleated RBCs/100 WBC 0.2 /100 WBC (0) H 10/08/17 14:05 PT 12.6 Seconds (9.4-12.1) H 10/08/17 14:05 Sodium 135 mEq/L (136-145) L 10/10/17 02:02 Phosphorus 5.6 mg/dL (2.7-4.5) H 10/09/17 00:32 Alkaline Phosphatase 202 Units/L (34-104) H 10/08/17 14:05 Serum Total Protein 6.3 g/dL (6.4-8.9) L 10/08/17 14:05 Albumin 3.0 g/dL (3.5-5.7) L 10/08/17 14:05 Albumin/Globulin Ratio 0.9 (1.1-2.2) L 10/08/17 14:05 General appearance: Present: no acute distress, thin - Head Head exam: Present: atraumatic, normocephalic - Eye Eye exam: Present: normal appearance. Absent: scleral icterus - Respiratory Respiratory exam: Present: decreased breath sounds - Cardiovascular Cardiovascular exam: Present: RRR, +S1, +S2 - GI/Abdominal GI/Abdominal exam: Present: normal bowel sounds, soft. Absent: guarding, tenderness - Additional comments: urethral robertson - Extremities Exam Extremities exam: Present: normal inspection. Absent: tenderness - Neurological Exam Neurological exam: Present: alert, oriented X3 - Psychiatric Psychiatric exam: Present: normal affect, normal mood Palliative Quality Palliative Quality: Screen for Code Status: Yes, Screen for Goals of Care: Yes, Screen for Pain: Yes, If Pain Regimen Started, Initiate Bowel Regimen: Yes, Screen for Nausea/Vomitting: Yes Code Status: 10/08/17 16:47 Resuscitation Status: Active [RES] Routine Comment: Resuscitation Status: [id number] - Labs CBC & Chem 7: 10/10/17 02:02 10/10/17 02:02 - ABG Interpretation ABG results: PT/INR, D-dimer PT 12.6 Seconds (9.4-12.1) H 10/08/17 14:05 Consult Discharge Plan - Plan Additional Instructions: Daily wound care- cleanse with soap and water and pat dry, pack wound with kerlex fluffs moistened with 1/4 strength Dakins solution, cover with ABD pad and tape to secure daily with Med[employer] Referrals: Carlito Rivera MD [Non-Partnered Physician] - (F/u in 7-10 days in the outpatient wound care with Dr. Rivera) Anna Marie Bishop CNP [Advanced Practice Nurse] - 10/17/17 1:45 pm <Vin Roberto - Last Filed: 10/11/17 11:12> Date of Encounter: 10/11/17 - Assessment and plan (1) Advanced directives, counseling/discussion Current Visit: No Status: Acute (2) Full code status Current Visit: No Status: Acute (3) Primary cancer of right lung metastatic to other site Current Visit: No Status: Chronic (4) Metastatic cancer to bone Current Visit: Yes Status: Chronic (5) Dysphagia Current Visit: Yes Status: Acute - Time Spent With Patient Total time spent is greater than 50% in coordination of care (as documented) at patient's floor/unit and/or counseling patient: - Constitutional Vitals: Abnormal lab results RBC 2.54 M/mcL (4.19-5.50) L 10/10/17 02:02 Hgb 8.1 g/dL (12.9-16.9) L 10/10/17 02:02 Hct 25.0 % (37.5-50.1) L 10/10/17 02:02 RDW 16.3 % (11.5-14.5) H 10/10/17 02:02 MPV 8.8 fL (9.4-12.4) L 10/10/17 02:02 Lymphocytes # 0.3 K/mcL (0.6-4.6) L 10/10/17 02:02 Nucleated RBCs/100 WBC 0.2 /100 WBC (0) H 10/08/17 14:05 PT 12.6 Seconds (9.4-12.1) H 10/08/17 14:05 Sodium 135 mEq/L (136-145) L 10/10/17 02:02 Phosphorus 5.6 mg/dL (2.7-4.5) H 10/09/17 00:32 Alkaline Phosphatase 202 Units/L (34-104) H 10/08/17 14:05 Serum Total Protein 6.3 g/dL (6.4-8.9) L 10/08/17 14:05 Albumin 3.0 g/dL (3.5-5.7) L 10/08/17 14:05 Albumin/Globulin Ratio 0.9 (1.1-2.2) L 10/08/17 14:05 - Attending Attestation I examined this patient and my medical decision-making was reviewed with the Resident Physician. I agree with the documented findings, disposition and treatment plan as described except to the extent set forth below. Palliative Quality Code Status: 10/08/17 16:47 Resuscitation Status: Active [RES] Routine Comment: Resuscitation Status: [id number] - Labs CBC & Chem 7: 10/10/17 02:02 10/10/17 02:02 - ABG Interpretation ABG results: PT/INR, D-dimer PT 12.6 Seconds (9.4-12.1) H 10/08/17 14:05
[2017-10-11] MEDS: Tiotropium 18 MCG inhalation IH SCH (11:25)
--- NOTE | 2017-10-11 14:37 | Internal Med Progress Note ---
<Robert Craig - Last Filed: 10/11/17 14:29> Date of Encounter: 10/11/17 Time of Encounter: 14:29 - Assessment and plan (1) Sepsis Current Visit: Yes Status: Acute Assessment and plan: 2nd to infected stage 4 decubitus ulcer POD 3 s/p debridement Culture shows Proteus mirabilis and MSSA which is susceptible to levofloxacin. leukocytosis, tachycardia, lactic acidosis on presentation leukocytosis resolved, afebrile Patient will need long-term antibiotics 3 weeks minimum Qualifiers: Sepsis type: sepsis due to unspecified organism Qualified Code(s): A41.9 - Sepsis, unspecified organism (2) Acute urinary retention Current Visit: Yes Status: Acute Assessment and plan: Patient has Rodriguez catheter and has adequate urine output. Continue Rodriguez catheter. (3) Anxiety Current Visit: Yes Status: Chronic Assessment and plan: Continue Xanax at home dose (4) Cellulitis Current Visit: Yes Status: Acute Assessment and plan: As above 2hrly turning Pain control Qualifiers: Site of cellulitis: unspecified site Qualified Code(s): L03.90 - Cellulitis , unspecified (5) COPD (chronic obstructive pulmonary disease) Current Visit: Yes Status: Chronic Assessment and plan: Continues patient Spiriva and albuterol inhaler. He is not in exacerbation. Qualifiers: COPD type: emphysema Emphysema type: panlobular Qualified Code(s): J43.1 - Panlobular emphysema (6) Decubitus ulcer, stage 4 with infection Current Visit: Yes Status: Acute Assessment and plan: Continue Levaquin. Daily dressing changes. 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 Qualifiers: Protein-calorie malnutrition severity: moderate Qualified Code(s): E44.0 - Moderate protein-calorie malnutrition - Subjective Interval history: Patient has 9/10 pain this morning in his low back. No acute overnight events. Patient has chosen [facility] [place] hosp[facility]. Patient's family is setting up private care at home. [facility] care is titrating patient's pain medications. - Constitutional Vitals: Temp Pulse Resp BP Pulse Ox 98.1 F 102 19 122/76 94 10/11/17 07:32 10/11/17 10:39 10/11/17 11:26 10/11/17 10:39 10/11/17 11:26 General appearance: Present: cachectic, mild distress, A&O X 3, pleasant - Other Additional findings: General: plesant without distress ENT: Moist mucous membranes Lymphadenopathy, Trachea Midline Heart: Regular rate and rhythm with no murmur Lungs: Clear to auscultation bilaterally Abdomen: Soft nontender, nondistended positive bowel sounds Skin: She has large sacral ulcer that is dressed, clean and dry. Extremities: Patient has pedal edema greater on the right compared to left. Neuro: Alert and oriented 3. Vascular: Pedal and radial pulses 2 out of 4 - Eye Eye exam: Present: PERRL, conjuntiva pink, sclera anicteric Pupils: Present: PERRL - ENT ENT exam: Present: mucous membranes dry Additional comments: No thrush - Neck Neck exam general surgery: Present: supple, trachea midline. Absent: lymphadenopathy - Respiratory Respiratory exam: Present: CTAB. Absent: accessory muscle use, rales, rhonchi, wheezes - Cardiovascular Cardiovascular exam: Present: RRR, +S1, +S2. Absent: diastolic murmur, gallop, rubs, systolic murmur - Additional comments: Wound dressing on sacral region clean and dry, not removed - Extremities Exam Extremities exam: Present: pedal edema ((R > L ankle edema, dependent, as patient is laying on his rt side)), warm, radial pulses palpable and symmetrical. Absent: calf tenderness, cyanotic - Neurological Exam Neurological exam: Present: alert, CN II-XII intact, oriented X3, no focal deficits. Absent: pronater drift, facial droop, speech deficit - Skin Skin exam: Present: dry, intact Internal Medicine: Result - Labs CBC & Chem 7: 10/10/17 02:02 10/10/17 02:02 - ABG Interpretation ABG results: PT/INR, D-dimer PT 12.6 Seconds (9.4-12.1) H 10/08/17 14:05 - VTE Documentation of Mechanical Device: Intermittent pneumatic compression device Consult Discharge Plan - Plan Additional Instructions: Daily wound care- cleanse with soap and water and pat dry, pack wound with kerlex fluffs moistened with 1/4 strength Dakins solution, cover with ABD pad and tape to secure daily with [employer] Referrals: Carlito Rivera MD [Non-Partnered Physician] - (F/u in 7-10 days in the outpatient wound care with Dr. Rivera) Anna Marie Bishop CNP [Advanced Practice Nurse] - 10/17/17 1:45 pm <Park Amaya - Last Filed: 10/11/17 15:49> Date of Encounter: 10/11/17 - Constitutional Vitals: Temp Pulse Resp BP Pulse Ox 98.1 F 102 19 122/76 94 10/11/17 07:32 10/11/17 10:39 10/11/17 11:26 10/11/17 10:39 10/11/17 11:26 Internal Medicine: Result - Labs CBC & Chem 7: 10/10/17 02:02 10/10/17 02:02 - ABG Interpretation ABG results: PT/INR, D-dimer PT 12.6 Seconds (9.4-12.1) H 10/08/17 14:05 - Attending Attestation I have personally seen and examined this patient, reviewed the progress note obtained and documented by the resident,and I personally participated in the white components. I have discussed the case and management of the patient's care.
[2017-10-12] MEDS: *HR* Heparin 5,000 UNIT/ML VIAL SQ SCH ×2 (05:39→18:46)
[2017-10-12] MEDS: Tiotropium 18 MCG inhalation IH SCH (08:27)
[2017-10-12] MEDS: Sennosides/Docusate Sodium TABLET PO SCH ×2 (10:43→20:37)
[2017-10-12] MEDS: amLODIPine 5 MG TABLET PO SCH ×2 (10:43→20:36)
[2017-10-12] MEDS: Folic Acid 1 MG TABLET PO SCH (10:43)
[2017-10-12] MEDS: levoFLOXacin 750 MG TABLET PO SCH (10:43)
--- NOTE | 2017-10-12 10:52 | Internal Med Progress Note ---
Date of Encounter: 10/12/17 Time of Encounter: 10:51 - Assessment and plan (1) Sepsis Current Visit: Yes Status: Acute Assessment and plan: 2nd to infected stage 4 decubitus ulcer POD 4 s/p debridement Culture shows Proteus mirabilis and MSSA which is susceptible to levofloxacin. leukocytosis, tachycardia, lactic acidosis on presentation leukocytosis resolved, afebrile Patient will need long-term antibiotics 3 weeks minimum Qualifiers: Sepsis type: sepsis due to unspecified organism Qualified Code(s): A41.9 - Sepsis, unspecified organism (2) Cellulitis Current Visit: Yes Status: Acute Assessment and plan: As above 2hrly turning Pain control Qualifiers: Site of cellulitis: unspecified site Qualified Code(s): L03.90 - Cellulitis , unspecified (3) Decubitus ulcer, stage 4 with infection Current Visit: Yes Status: Acute Assessment and plan: Continue Levaquin. Daily dressing changes. move patient Q2h (4) COPD (chronic obstructive pulmonary disease) Current Visit: Yes Status: Chronic Assessment and plan: Continues patient Spiriva and albuterol inhaler. He is not in exacerbation. 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 Continue Rodriguez catheter. 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 POD 4 s/p wound debridement, op note shows abscesses and debridement done up to bone He developed acute urinary retention warranting placement of a Rodriguez catheter with immediate output of 1000cc Wound culture with MSSA and Proteus NO new complains Awaiting availability of private care at home, possible on Saturday. Palliative is following he is for home hospice - Constitutional Vitals: Temp Pulse Resp BP Pulse Ox 97.7 F 99 16 119/71 95 10/12/17 07:34 10/12/17 07:34 10/12/17 08:30 10/12/17 07:34 10/12/17 08:30 General appearance: Present: cachectic, mild distress, A&O X 3, pleasant - Head Head exam: Present: atraumatic, normocephalic - Eye Eye exam: Present: PERRL, conjuntiva pink, sclera anicteric Pupils: Present: PERRL - Neck Neck exam general surgery: Present: supple, trachea midline. Absent: lymphadenopathy - Respiratory Respiratory exam: Present: CTAB. Absent: accessory muscle use, rales, rhonchi, wheezes - Additional comments: wound dressing clean and dry - Extremities Exam Extremities exam: Present: warm, radial pulses palpable and symmetrical. Absent : calf tenderness, cyanotic, pedal edema - Neurological Exam Neurological exam: Present: alert, CN II-XII intact, oriented X3, no focal deficits. Absent: pronater drift, facial droop, speech deficit - Skin Skin exam: Present: dry Internal Medicine: Result - Labs CBC & Chem 7: 10/10/17 02:02 10/10/17 02:02 - ABG Interpretation ABG results: PT/INR, D-dimer PT 12.6 Seconds (9.4-12.1) H 10/08/17 14:05 - VTE Documentation of Mechanical Device: Intermittent pneumatic compression device Consult Discharge Plan - Plan Additional Instructions: Daily wound care- cleanse with soap and water and pat dry, pack wound with kerlex fluffs moistened with 1/4 strength Dakins solution, cover with ABD pad and tape to secure daily with [employer] Referrals: Carlito Rivera MD [Non-Partnered Physician] - (F/u in 7-10 days in the outpatient wound care with Dr. Rivera) Anna Marie Bishop, POONAM [Advanced Practice Nurse] - 10/17/17 1:45 pm
[2017-10-12] MEDS: *HR* Morphine Immed Rel 30 MG TABLET PO PRN ×3 (10:59→20:53)
[2017-10-12] MEDS: *HR* Morphine 2 MG/ML SYRINGE IVP PRN ×2 (14:25→17:29)
[2017-10-13] MEDS: *HR* Morphine Immed Rel 30 MG TABLET PO PRN ×2 (02:51→06:21)
[2017-10-13] MEDS: *HR* Heparin 5,000 UNIT/ML VIAL SQ SCH ×2 (06:26→17:08)
[2017-10-13] MEDS: Tiotropium 18 MCG inhalation IH SCH (08:03)
[2017-10-13] MEDS: Sennosides/Docusate Sodium TABLET PO SCH ×2 (09:10→21:01)
[2017-10-13] MEDS: Folic Acid 1 MG TABLET PO SCH (09:10)
[2017-10-13] MEDS: amLODIPine 5 MG TABLET PO SCH ×2 (09:11→21:01)
[2017-10-13] MEDS: levoFLOXacin 750 MG TABLET PO SCH (09:11)
--- NOTE | 2017-10-13 13:49 | Internal Med Progress Note ---
Date of Encounter: 10/13/17 Time of Encounter: 11:00 - Assessment and plan (1) Sepsis Current Visit: Yes Status: Acute Assessment and plan: 2nd to infected stage 4 decubitus ulcer POD 5 s/p debridement Culture shows Proteus mirabilis and MSSA which is susceptible to levofloxacin. leukocytosis, tachycardia, lactic acidosis on presentation-resolved leukocytosis resolved, afebrile Patient will need long-term antibiotics 3 weeks minimum Qualifiers: Sepsis type: sepsis due to unspecified organism Qualified Code(s): A41.9 - Sepsis, unspecified organism (2) Cellulitis Current Visit: Yes Status: Acute Assessment and plan: As above 2hrly turning Pain control Qualifiers: Site of cellulitis: unspecified site Qualified Code(s): L03.90 - Cellulitis , unspecified (3) Decubitus ulcer, stage 4 with infection Current Visit: Yes Status: Acute Assessment and plan: Continue Levaquin. Daily dressing changes. move patient Q2h (4) COPD (chronic obstructive pulmonary disease) Current Visit: Yes Status: Chronic Assessment and plan: Continues patient Spiriva and albuterol inhaler. He is not in exacerbation. 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 Continue Rodriguez catheter. 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 POD 5 s/p wound debridement, op note shows abscesses and debridement done up to bone He developed acute urinary retention warranting placement of a Rodriguez catheter with immediate output of 1000cc Wound culture with MSSA and Proteus NO new complains Awaiting availability of private care at home, possible on Saturday. Palliative is following he is for home hospice I spent ~45 mins in patient's room this morning, with his at the bedside, attempting to address his pain control and for possible removl of urinary catheter Patient is very evasive and did not answer most questions directly We will continue current management at this time - Constitutional Vitals: Temp Pulse Resp BP Pulse Ox 98.4 F 105 15 101/60 93 10/13/17 09:11 10/13/17 09:11 10/13/17 09:11 10/13/17 09:11 10/13/17 09:11 General appearance: Present: cachectic, A&O X 3, pleasant, no acute distress - Head Head exam: Present: atraumatic, normocephalic - Eye Eye exam: Present: PERRL, conjuntiva pink, sclera anicteric Pupils: Present: PERRL - Neck Neck exam general surgery: Present: supple, trachea midline. Absent: lymphadenopathy - Respiratory Respiratory exam: Present: CTAB. Absent: accessory muscle use, rales, rhonchi, wheezes - Cardiovascular Cardiovascular exam: Present: RRR, +S1, +S2. Absent: diastolic murmur, gallop, rubs, systolic murmur - GI/Abdominal GI/Abdominal exam: Present: normal bowel sounds, soft, no peritoneal signs. Absent: distended, tenderness - Additional comments: Wound dressing clean and dry - Extremities Exam Extremities exam: Present: warm, radial pulses palpable and symmetrical. Absent : calf tenderness, cyanotic, pedal edema - Neurological Exam Neurological exam: Present: alert, CN II-XII intact, oriented X3, no focal deficits. Absent: pronater drift, facial droop, speech deficit - Skin Skin exam: Present: dry Internal Medicine: Result - Labs CBC & Chem 7: 10/10/17 02:02 10/10/17 02:02 - ABG Interpretation ABG results: PT/INR, D-dimer PT 12.6 Seconds (9.4-12.1) H 10/08/17 14:05 - VTE Documentation of Mechanical Device: Intermittent pneumatic compression device Consult Discharge Plan - Plan Additional Instructions: Daily wound care- cleanse with soap and water and pat dry, pack wound with kerlex fluffs moistened with 1/4 strength Dakins solution, cover with ABD pad and tape to secure daily with [employer] Referrals: Carlito Rivera MD [Non-Partnered Physician] - (F/u in 7-10 days in the outpatient wound care with Dr. Rivera) Anna Marie Bishop, POONAM [Advanced Practice Nurse] - 10/17/17 1:45 pm
[2017-10-13] MEDS: *HR* Morphine 2 MG/ML SYRINGE IVP PRN ×2 (14:00→20:57)
--- NOTE | 2017-10-13 14:54 | Emergency Department Note ---
Disposition Clinical Impression: Pressure ulcer of sacral region, stage 3, Sepsis affecting skin, Generalized weakness, History of malignant neoplasm metastatic to lung, History of rib fracture, Collapse of right lung Cellulitis Qualifiers: Site of cellulitis: unspecified site Qualified Code(s): L03.90 - Cellulitis, unspecified Disposition: Admitted As Inpatient Condition: Serious Time of Disposition: 15:04 General Adult HPI - General Chief complaint: ED Wound/Laceration Stated complaint: ULCER Time Seen by Provider: 10/08/17 13:39 Source: patient, family Limitations: no limitations Nursing Notes Reviewed: Yes Vital Signs Reviewed: Yes - History of Present Illness HPI Narrative: 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 Patient presents with worsening pressure ulcer to his sacrum. Patient was placed on Bactrim outpatient with wound care after previous admission. Pt is here today for worsening of his wound and dramatic acute generalized weakness. Pain Scale: 4 - Related Data Home Medications Medication Instructions Recorded Confirmed Albuterol Sulfate [Ventolin Hfa] 2 puff IH Q4H PRN 05/23/17 10/08/17 Umeclidinium Brm/Vilanterol Tr 1 puff IH DAILY 05/23/17 10/08/17 [Anoro Ellipta 62.5-25 Mcg INH] amLODIPine [Norvasc] 5 mg PO BID 05/23/17 10/08/17 Docusate [Colace] 100 mg PO BID PRN 06/18/17 10/08/17 Previous Rx's Medication Instructions Recorded Folic Acid 1 mg PO DAILY #30 tablet 06/05/17 Acetaminophen [Tylenol] 650 mg PO Q6HR PRN tablet 07/21/17 Quetiapine Fumarate [Seroquel] 25 mg PO HS #30 tablet 07/21/17 Dronabinol [Marinol] 5 mg PO BID #60 capsule 09/19/17 ALPRAZolam [Xanax 0.25 MG Tablet] 0.25 mg PO TID PRN #90 tablet 09/27/17 Morphine Immed Rel [Morphine 15 mg PO Q4HR PRN 7 Days #28 tab 10/05/17 Sulfate] Sulfamethoxazole/Trimeth DS 2 each PO BID #28 tablet 10/05/17 [Bactrim DS] Allergies Allergy/AdvReac Type Severity Reaction Status Date / Time codeine Allergy Hives Verified 10/08/17 14:44 All systems ED: reviewed and negative except as stated. Review of Systems: As Per HPI Constitutional: Reports: weakness. Denies: fever ENT ED: Denies: congestion Cardiovascular: Denies: chest pain, palpitations Respiratory: Denies: cough, dyspnea Gastrointestinal: Denies: abdominal pain, nausea, vomiting, diarrhea Past Medical History - Past Medical History Attestation: Yes The following information was validated with the patient. Source: patient, nursing notes reviewed Medical history: Reports: cancer, COPD, hypertension, other Surgical history: Reports: orthopedic, other, other Psychiatric history: Reports: no psych history - Social History Smoking Status: Light tobacco smoker Smokeless Tobacco Status: No Alcohol use: Reports: none Drug use: Reports: none Physical Exam Vital Signs Temperature 97.7 F 10/08/17 13:31 Pulse Rate 100 10/08/17 13:31 Respiratory Rate 18 10/08/17 13:31 Blood Pressure 108/74 10/08/17 13:31 O2 Sat by Pulse Oximetry 94 10/08/17 13:31 Temperature 98.4 F 10/13/17 09:11 Pulse Rate 105 10/13/17 09:11 Respiratory Rate 15 10/13/17 09:11 Blood Pressure 101/60 10/13/17 09:11 O2 Sat by Pulse Oximetry 93 10/13/17 09:11 Oxygen Delivery Oxygen Delivery Room Air 66-year-old male who is alert and oriented 3 and in acute distress secondary to pain and lower back. Patient is unable to stand up straight and is unable to lie on his back secondary to ulceration to the sacral area. Patient has a large ulcerated sore that looks elias gangrenous and purulent. Large area of erythema with packing that has fallen out secondary to devitalized tissue. Pocket it looks to extend deep down into his lower sacral area. - General Limitations: no limitations General appearance: alert, in no apparent distress - Head Head exam: atraumatic, normocephalic, normal inspection - Eye Eye exam: Present: normal appearance, PERRL, EOMI - ENT ENT exam: normal exam, normal oropharynx, mucous membranes moist - Neck Neck exam: Present: normal inspection, full ROM, trachea midline - Chest Chest inspection: Present: normal inspection, symmetric chest wall rise - Respiratory Respiratory exam: Present: normal lung sounds bilaterally - Cardiovascular Cardiovascular exam: Present: regular rate, normal rhythm, normal heart sounds - Abdominal Exam Abdominal exam: Present: soft, Non-Tender. Absent: tenderness, distention, guarding, rebound, rigidity - Extremities Exam Extremities exam: Present: normal inspection, full ROM. Absent: tenderness, pedal edema - Back Exam Back exam: Present: normal inspection, full ROM. Absent: tenderness - Neurological Exam Neurological exam: Present: alert, oriented X3 - Skin Skin exam: Present: dry. Absent: intact, mottled Course Vital Signs Temperature 97.7 F 10/08/17 13:31 Pulse Rate 100 10/08/17 13:31 Respiratory Rate 18 10/08/17 13:31 Blood Pressure 108/74 10/08/17 13:31 O2 Sat by Pulse Oximetry 94 10/08/17 13:31 Temperature 98.4 F 10/13/17 09:11 Pulse Rate 105 10/13/17 09:11 Respiratory Rate 15 10/13/17 09:11 Blood Pressure 101/60 10/13/17 09:11 O2 Sat by Pulse Oximetry 93 10/13/17 09:11 Oxygen Delivery Oxygen Delivery Room Air Medical Decision Making - MDM Narrative Medical decision making narrative: This note is an addendum to fix errors: to the MDI Sepsis secondary to skin infection of sacral ulceration that is possibly gangrenous. When his been getting progressively worse. He has a putrid smell. Consulted general surgery for debridement. Dr. Rivera is come to assess the patient. He has been informed patient has elevated WBC, lactic acid. Patient to be admitted for medical management. Patient started on Vancomycin and Zosyn IV. Patient understands and agrees to treatment for admission. Patient is accepted for admission by Dr. Elkins. After inpatient assessment and treatment. Current plan is the patient is started outpatient hospice. Dr. Rivera examined the Pt and decided that he will take the patient to surgery for debridement of the wound after Pt was admitted. [id number]: I discussed the case with Dr Centeno of Gen. Surgery who states the debridement was extensive and the wound extended to the karly structures. Pt was sent to the ICU for medical management. - Lab Data Lab results reviewed: Yes I reviewed the patient's lab results. Lab results narrative: Laboratory Tests 10/08/17 10/08/17 10/08/17 14:05 14:05 14:05 WBC 12.1 H RBC 3.18 L Hgb 9.8 L Hct 30.9 L MCV 97.2 MCH 30.8 MCHC 31.7 RDW 16.3 H Plt Count 332 MPV 9.3 L Immature Gran % 0.7 Seg Neutrophils % 87.6 Lymphocytes % 3.8 Monocytes % 7.5 Eosinophils % 0.2 Basophils % 0.2 Neutrophils # 10.6 H Lymphocytes # 0.5 L Monocytes # 0.9 Eosinophils # 0.0 Basophils # 0.0 Nucleated RBCs/100 WBC 0.2 H PT 12.6 H INR 1.2 APTT 28.2 Sodium 131 L Potassium 3.9 Chloride 98 Carbon Dioxide 23 BUN 23 Creatinine 0.88 Est GFR ( Amer) > 60 Est GFR (Non-Af Amer) > 60 BUN/Creatinine Ratio 26 Glucose 77 Calculated Osmolality 274 L Lactic Acid Calcium 10.2 Phosphorus 4.6 H Magnesium 1.6 Total Bilirubin 0.3 Direct Bilirubin 0.1 Indirect Bilirubin 0.2 AST 20 ALT 15 Alkaline Phosphatase 202 H Troponin I Serum Total Protein 6.3 L Albumin 3.0 L Globulin 3.3 Albumin/Globulin Ratio 0.9 L Vancomycin Trough 10/08/17 10/08/17 10/09/17 14:05 14:05 00:32 WBC RBC Hgb Hct MCV MCH MCHC RDW Plt Count MPV Immature Gran % Seg Neutrophils % Lymphocytes % Monocytes % Eosinophils % Basophils % Neutrophils # Lymphocytes # Monocytes # Eosinophils # Basophils # Nucleated RBCs/100 WBC PT INR APTT Sodium Potassium Chloride Carbon Dioxide BUN Creatinine Est GFR ( Amer) Est GFR (Non-Af Amer) BUN/Creatinine Ratio Glucose Calculated Osmolality Lactic Acid 2.6 H 0.7 Calcium Phosphorus Magnesium Total Bilirubin Direct Bilirubin Indirect Bilirubin AST ALT Alkaline Phosphatase Troponin I < 0.03 Serum Total Protein Albumin Globulin Albumin/Globulin Ratio Vancomycin Trough 10/09/17 10/09/17 10/10/17 00:32 00:32 02:02 WBC 9.7 9.9 RBC 2.68 L 2.54 L Hgb 8.5 L 8.1 L Hct 26.6 L 25.0 L MCV 99.3 98.4 MCH 31.7 31.9 MCHC 32.0 32.4 RDW 16.3 H 16.3 H Plt Count 232 254 MPV 9.0 L 8.8 L Immature Gran % 1.2 Seg Neutrophils % 87.4 Lymphocytes % 3.2 Monocytes % 8.0 Eosinophils % 0.1 Basophils % 0.1 Neutrophils # 8.6 Lymphocytes # 0.3 L Monocytes # 0.8 Eosinophils # 0.0 Basophils # 0.0 Nucleated RBCs/100 WBC PT INR APTT Sodium 131 L Potassium 5.1 D Chloride 103 Carbon Dioxide 24 BUN 22 Creatinine 0.86 Est GFR ( Amer) > 60 Est GFR (Non-Af Amer) > 60 BUN/Creatinine Ratio 26 Glucose 89 Calculated Osmolality 275 L Lactic Acid Calcium 9.4 Phosphorus 5.6 H Magnesium Total Bilirubin Direct Bilirubin Indirect Bilirubin AST ALT Alkaline Phosphatase Troponin I Serum Total Protein Albumin Globulin Albumin/Globulin Ratio Vancomycin Trough 10/10/17 10/10/17 02:02 02:02 WBC RBC Hgb Hct MCV MCH MCHC RDW Plt Count MPV Immature Gran % Seg Neutrophils % Lymphocytes % Monocytes % Eosinophils % Basophils % Neutrophils # Lymphocytes # Monocytes # Eosinophils # Basophils # Nucleated RBCs/100 WBC PT INR APTT Sodium 135 L Potassium 4.2 Chloride 105 Carbon Dioxide 26 BUN 20 Creatinine 0.78 Est GFR ( Amer) > 60 Est GFR (Non-Af Amer) > 60 BUN/Creatinine Ratio 26 Glucose 94 Calculated Osmolality 282 Lactic Acid Calcium 8.8 Phosphorus Magnesium Total Bilirubin Direct Bilirubin Indirect Bilirubin AST ALT Alkaline Phosphatase Troponin I Serum Total Protein Albumin Globulin Albumin/Globulin Ratio Vancomycin Trough 16.9 Result diagrams: 10/10/17 02:02 10/10/17 02:02 Lab Results 10/08/17 10/08/17 10/08/17 Range/Units 14:05 14:05 14:05 WBC 12.1 H (4.3-11.1) K/mcL RBC 3.18 L (4.19-5.50) M/mcL Hgb 9.8 L (12.9-16.9) g/dL Hct 30.9 L (37.5-50.1) % MCV 97.2 (83.0-100.0) fL MCH 30.8 (28.0-33.3) pg MCHC 31.7 (31.6-35.5) g/dL RDW 16.3 H (11.5-14.5) % Plt Count 332 (140-400) K/mcL MPV 9.3 L (9.4-12.4) fL Immature Gran % 0.7 (0-4) % Seg Neutrophils % 87.6 % Lymphocytes % 3.8 % Monocytes % 7.5 % Eosinophils % 0.2 % Basophils % 0.2 % Neutrophils # 10.6 H (1.6-8.9) K/mcL Lymphocytes # 0.5 L (0.6-4.6) K/mcL Monocytes # 0.9 (0.0-1.3) K/mcL Eosinophils # 0.0 (0.0-0.6) K/mcL Basophils # 0.0 (0.0-0.2) K/mcL Nucleated RBCs/100 WBC 0.2 H (0) /100 WBC PT 12.6 H (9.4-12.1) Seconds INR 1.2 APTT 28.2 (26.0-36.0) Seconds Sodium 131 L (136-145) mEq/L Potassium 3.9 (3.5-5.1) mEq/L Chloride 98 (98-107) mEq/L Carbon Dioxide 23 (23-29) mEq/L BUN 23 (8-23) mg/dL Creatinine 0.88 (0.70-1.30) mg/dL Est GFR ( Amer) > 60 (> 60) Est GFR (Non-Af Amer) > 60 (> 60) BUN/Creatinine Ratio 26 (6-26) Glucose 77 (70-105) mg/dL Calculated Osmolality 274 L (280-300) Lactic Acid (0.5-2.2) mmol/L Calcium 10.2 (8.6-10.3) mg/dL Phosphorus 4.6 H (2.7-4.5) mg/dL Magnesium 1.6 (1.6-2.6) mg/dL Total Bilirubin 0.3 (0.3-1.0) mg/dL Direct Bilirubin 0.1 (0.0-0.2) mg/dL Indirect Bilirubin 0.2 (0.0-1.2) mg/dL AST 20 (13-39) Units/L ALT 15 (7-52) Units/L Alkaline Phosphatase 202 H (34-104) Units/L Troponin I (< 0.04) ng/mL Serum Total Protein 6.3 L (6.4-8.9) g/dL Albumin 3.0 L (3.5-5.7) g/dL Globulin 3.3 (2.4-3.5) g/dL Albumin/Globulin Ratio 0.9 L (1.1-2.2) 10/08/17 10/08/17 10/09/17 Range/Units 14:05 14:05 00:32 WBC (4.3-11.1) K/mcL RBC (4.19-5.50) M/mcL Hgb (12.9-16.9) g/dL Hct (37.5-50.1) % MCV (83.0-100.0) fL MCH (28.0-33.3) pg MCHC (31.6-35.5) g/dL RDW (11.5-14.5) % Plt Count (140-400) K/mcL MPV (9.4-12.4) fL Immature Gran % (0-4) % Seg Neutrophils % % Lymphocytes % % Monocytes % % Eosinophils % % Basophils % % Neutrophils # (1.6-8.9) K/mcL Lymphocytes # (0.6-4.6) K/mcL Monocytes # (0.0-1.3) K/mcL Eosinophils # (0.0-0.6) K/mcL Basophils # (0.0-0.2) K/mcL Nucleated RBCs/100 WBC (0) /100 WBC PT (9.4-12.1) Seconds INR APTT (26.0-36.0) Seconds Sodium (136-145) mEq/L Potassium (3.5-5.1) mEq/L Chloride (98-107) mEq/L Carbon Dioxide (23-29) mEq/L BUN (8-23) mg/dL Creatinine (0.70-1.30) mg/dL Est GFR ( Amer) (> 60) Est GFR (Non-Af Amer) (> 60) BUN/Creatinine Ratio (6-26) Glucose (70-105) mg/dL Calculated Osmolality (280-300) Lactic Acid 2.6 H 0.7 (0.5-2.2) mmol/L Calcium (8.6-10.3) mg/dL Phosphorus (2.7-4.5) mg/dL Magnesium (1.6-2.6) mg/dL Total Bilirubin (0.3-1.0) mg/dL Direct Bilirubin (0.0-0.2) mg/dL Indirect Bilirubin (0.0-1.2) mg/dL AST (13-39) Units/L ALT (7-52) Units/L Alkaline Phosphatase (34-104) Units/L Troponin I < 0.03 (< 0.04) ng/mL Serum Total Protein (6.4-8.9) g/dL Albumin (3.5-5.7) g/dL Globulin (2.4-3.5) g/dL Albumin/Globulin Ratio (1.1-2.2) 10/09/17 10/09/17 Range/Units 00:32 00:32 WBC 9.7 (4.3-11.1) K/mcL RBC 2.68 L (4.19-5.50) M/mcL Hgb 8.5 L (12.9-16.9) g/dL Hct 26.6 L (37.5-50.1) % MCV 99.3 (83.0-100.0) fL MCH 31.7 (28.0-33.3) pg MCHC 32.0 (31.6-35.5) g/dL RDW 16.3 H (11.5-14.5) % Plt Count 232 (140-400) K/mcL MPV 9.0 L (9.4-12.4) fL Immature Gran % (0-4) % Seg Neutrophils % % Lymphocytes % % Monocytes % % Eosinophils % % Basophils % % Neutrophils # (1.6-8.9) K/mcL Lymphocytes # (0.6-4.6) K/mcL Monocytes # (0.0-1.3) K/mcL Eosinophils # (0.0-0.6) K/mcL Basophils # (0.0-0.2) K/mcL Nucleated RBCs/100 WBC (0) /100 WBC PT (9.4-12.1) Seconds INR APTT (26.0-36.0) Seconds Sodium 131 L (136-145) mEq/L Potassium 5.1 D (3.5-5.1) mEq/L Chloride 103 (98-107) mEq/L Carbon Dioxide 24 (23-29) mEq/L BUN 22 (8-23) mg/dL Creatinine 0.86 (0.70-1.30) mg/dL Est GFR ( Amer) > 60 (> 60) Est GFR (Non-Af Amer) > 60 (> 60) BUN/Creatinine Ratio 26 (6-26) Glucose 89 (70-105) mg/dL Calculated Osmolality 275 L (280-300) Lactic Acid (0.5-2.2) mmol/L Calcium 9.4 (8.6-10.3) mg/dL Phosphorus 5.6 H (2.7-4.5) mg/dL Magnesium (1.6-2.6) mg/dL Total Bilirubin (0.3-1.0) mg/dL Direct Bilirubin (0.0-0.2) mg/dL Indirect Bilirubin (0.0-1.2) mg/dL AST (13-39) Units/L ALT (7-52) Units/L Alkaline Phosphatase (34-104) Units/L Troponin I (< 0.04) ng/mL Serum Total Protein (6.4-8.9) g/dL Albumin (3.5-5.7) g/dL Globulin (2.4-3.5) g/dL Albumin/Globulin Ratio (1.1-2.2) - Radiology Data Radiology results reviewed: Yes I reviewed the patient's radiology results. Chest X-Ray 10/08/17 14:06 IMPRESSION: 1. Small-moderate right pleural effusion has developed with right basilar atelectasis superimposed on the mass at the right lung base and right middle lobe collapse. 2. No definite pneumothorax. 3. Acute posterior right 6th rib fracture is suspected. D/ : / 10/08/2017 14:52:58 Justin Berman MD / ling Interpreting Provider: Justin Berman MD
[2017-10-14] MEDS: *HR* Heparin 5,000 UNIT/ML VIAL SQ SCH ×2 (05:42→18:02)
[2017-10-14] MEDS: Tiotropium 18 MCG inhalation IH SCH ×2 (08:30→14:02)
[2017-10-14 08:46] LABS: Basophils % 0.1 %; Eosinophils % 0.1 %; Hematocrit 29.2 % (37.5-50.1); Hemoglobin 9.2 g/dL (12.9-16.9); Immature Granulocytes % 0.6 % (0-4); Lymphocytes # 0.4 K/mcL (0.6-4.6); Lymphocytes % 3.8 %; Mean Corpuscular HGB Conc 31.5 g/dL (31.6-35.5); Mean Corpuscular Hemoglobin 30.8 pg (28.0-33.3); Mean Corpuscular Volume 97.7 fL (83.0-100.0); Mean Platelet Volume 9.3 fL (9.4-12.4); Monocytes # 0.8 K/mcL (0.0-1.3); Monocytes % 7.2 %; Neutrophils # 9.8 K/mcL (1.6-8.9); Platelet Count 273 K/mcL (140-400); Red Blood Count 2.99 M/mcL (4.19-5.50); Red Cell Distribution Width 16.4 % (11.5-14.5); Segmented Neutrophils % 88.2 %
[2017-10-14 09:00] LABS: BUN/Creatinine Ratio 36 (6-26); Blood Urea Nitrogen 20 mg/dL (8-23); Calcium 8.8 mg/dL (8.6-10.3); Carbon Dioxide 28 mEq/L (23-29); Chloride 102 mEq/L (98-107); Glucose 93 mg/dL (70-105); Osmolality,Calculated 282 (280-300); Potassium 3.6 mEq/L (3.5-5.1); Sodium 135 mEq/L (136-145); eGFR For African Americans > 60 (> 60); eGFR For Non-African Americans > 60 (> 60)
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
[2017-10-14] MEDS: amLODIPine 5 MG TABLET PO SCH ×2 (10:36→22:01)
[2017-10-14] MEDS: Sennosides/Docusate Sodium TABLET PO SCH ×2 (10:36→22:02)
[2017-10-14] MEDS: Folic Acid 1 MG TABLET PO SCH (10:36)
[2017-10-14] MEDS: levoFLOXacin 750 MG TABLET PO SCH (10:36)
[2017-10-14] MEDS: *HR* Morphine 2 MG/ML SYRINGE IVP PRN ×2 (10:56→16:04)
[2017-10-14] MEDS: *HR* Morphine Immed Rel 30 MG TABLET PO PRN (17:59)
[2017-10-15] MEDS: *HR* Heparin 5,000 UNIT/ML VIAL SQ SCH ×2 (06:03→17:52)
[2017-10-15 08:12] VITALS: BP 129/77
[2017-10-15] MEDS: Sennosides/Docusate Sodium TABLET PO SCH (09:21)
[2017-10-15] MEDS: levoFLOXacin 750 MG TABLET PO SCH (09:22)
[2017-10-15] MEDS: Folic Acid 1 MG TABLET PO SCH (09:22)
[2017-10-15] MEDS: amLODIPine 5 MG TABLET PO SCH (09:22)
[2017-10-15] MEDS: *HR* Morphine Immed Rel 30 MG TABLET PO PRN ×2 (09:26→17:52)
--- NOTE | 2017-10-15 09:33 | Discharge Summary ---
<Robert Craig - Last Filed: 10/15/17 12:57> Date of Encounter: 10/15/17 Time of Encounter: 09:24 - Discharge Diagnosis (1) Sepsis Priority: Primary Status: Resolved Qualifiers: Sepsis type: sepsis due to unspecified organism Qualified Code(s): A41.9 - Sepsis, unspecified organism (2) Acute urinary retention Priority: Secondary Status: Acute (3) Anxiety Priority: Secondary Status: Chronic (4) Cellulitis Priority: Secondary Status: Acute Qualifiers: Site of cellulitis: buttock Qualified Code(s): L03.317 - Cellulitis of buttock (5) COPD (chronic obstructive pulmonary disease) Priority: Secondary Status: Chronic Qualifiers: COPD type: emphysema Emphysema type: panlobular Qualified Code(s): J43.1 - Panlobular emphysema (6) Decubitus ulcer, stage 4 with infection Priority: Secondary Status: Acute (7) Hypertension Priority: Secondary Status: Chronic Qualifiers: Hypertension type: essential hypertension Qualified Code(s): I10 - Essential (primary) hypertension (8) Hyponatremia Priority: Secondary Status: Chronic (9) Metastatic cancer to bone Priority: Secondary Status: Chronic (10) Protein calorie malnutrition Priority: Secondary Status: Chronic Qualifiers: Protein-calorie malnutrition severity: moderate Qualified Code(s): E44.0 - Moderate protein-calorie malnutrition - Discharge Medications Prescriptions: LORazepam Oral Conc [Ativan Oral Conc] 1 mg PO Q6HR #30 mls Dronabinol [Marinol] 5 mg PO BID #60 capsule levoFLOXacin [Levaquin] 750 mg PO DAILY #14 tablet Morphine Immed Rel [Morphine Sulfate] 15 mg PO Q2H PRN #60 tab PRN Reason: cancer pain hospice Morphine Oral CONC [Roxanol] 0.75 ml PO Q2H PRN #60 ml PRN Reason: cancer pain hospice Sodium Hypochlorite 0.25% [Dakin's (Half-Strength 0.25%)] 1 appl TP DAILY #4 bottle Tiotropium [Spiriva] 18 mcg IH DAILYR #1 inh Home Medications: Albuterol Sulfate [Ventolin Hfa] 2 puff IH Q4H PRN 05/23/17 [History] Umeclidinium Brm/Vilanterol Tr [Anoro Ellipta 62.5-25 Mcg INH] 1 puff IH DAILY 05/23/17 [History] amLODIPine [Norvasc] 5 mg PO BID 05/23/17 [History] Folic Acid 1 mg PO DAILY #30 tablet 06/05/17 [Rx] Docusate [Colace] 100 mg PO BID PRN 06/18/17 [History] Acetaminophen [Tylenol] 650 mg PO Q6HR PRN tablet 07/21/17 [Rx] Quetiapine Fumarate [Seroquel] 25 mg PO HS #30 tablet 07/21/17 [Rx] ALPRAZolam [Xanax 0.25 MG Tablet] 0.25 mg PO TID PRN #90 tablet 09/27/17 [Rx] Morphine Immed Rel [Morphine Sulfate] 15 mg PO Q4HR PRN 7 Days #28 tab 10/05/17 [Rx] Dronabinol [Marinol] 5 mg PO BID #60 capsule 10/15/17 [Rx] LORazepam Oral Conc [Ativan Oral Conc] 1 mg PO Q6HR #30 mls 10/15/17 [Rx] Morphine Immed Rel [Morphine Sulfate] 15 mg PO Q2H PRN #60 tab 10/15/17 [Rx] Morphine Oral CONC [Roxanol] 0.75 ml PO Q2H PRN #60 ml 10/15/17 [Rx] Sodium Hypochlorite 0.25% [Dakin's (Half-Strength 0.25%)] 1 appl TP DAILY #4 bottle 10/15/17 [Rx] Tiotropium [Spiriva] 18 mcg IH DAILYR #1 inh 10/15/17 [Rx] levoFLOXacin [Levaquin] 750 mg PO DAILY #14 tablet 10/15/17 [Rx] Allergies/Adverse Reactions: 3 Allergy/AdvReac Type Severity Reaction Status Date / Time codeine Allergy Hives Verified 10/08/17 14:44 Date of admission: 10/09/17 08:31 Primary care physician: Dario Díaz Consults: Palliative care, surgery Discharging clinician: Robert Craig Anticipated date of discharge: 10/15/17 - Patient Status Disposition: Hospice - Home Condition: Serious Functional capacity at discharge: bed bound Overall status at discharge: patient is not back to baseline - Discharge Instructions Instructions: Lorazepam (By mouth), Morphine, Rapid Release (By mouth) Follow Up With: Carlito Rivera MD [Non-Partnered Physician] - (F/u in 7-10 days in the outpatient wound care with Dr. Rivera) Anna Marie Bishop CNP [Advanced Practice Nurse] - 10/17/17 1:45 pm Additional Instructions: Daily wound care- cleanse with soap and water and pat dry, pack wound with kerlex fluffs moistened with 1/4 strength Dakins solution, cover with ABD pad and tape to secure daily with Medipore - Diet and Activity Activity: wear oxygen at all times (2L) Diet: regular diet (ensure TID) Hospital course: Mr. Santoyo is a 67 year old male presented to the emergency department with worsening sacral wound. Patient has a history of metastatic lung cancer and underwent chemotherapy and radiotherapy. He recently underwent right hip replacement and developed a sacral wound. Patient has stage III sacral decubitus ulcer. Before admission patient's wound had become more red, with increased drainage. Patient was tachycardic, had leukocytosis and lactic acidosis. Admitted for sepsis secondary to sacral wound infection. Patient was started on broad-spectrum antibiotics and care was consulted. Patient underwent urgent debridement of his wound and cultures were collected. According to surgery's operative note patient's sacral decubitus ulcer was deep to the bone. There was no evidence of osteomyelitis. Palliative consulted for discussion of goals of care. Palliative had a conversation with patient's oncologist Dr. Khanna who states patient would not qualify for further chemotherapy which would worsen his sacral decubitus ulcer and also that his cancer had been progressive despite chemotherapy. Patient's CODE STATUS was changed from full code to DNR CC a DNI. Patient and family decided to enroll in hospice. Patient's leukocytosis and lactic improved with broad-spectrum antibiotics. Wound culture grew Proteus mirabilis and MSSA which is sensitive to levofloxacin. Patient's antibiotics were D escalated to levofloxacin. Family and patient decided that they would like to be at home with home hospice. They set up a private home director multiple [facility] center for the patient. Patient anxiety and pain medications were titrated by palliative care and are controlling his symptoms. He is requiring 2 L oxygen at baseline. Oxygen equipment will be set up by hospice. Patient is able to tolerate his solid regular diet which is supplemented by ensure 3 times a day. Patient will require at least 3 weeks of Levaquin therapy. He has received 1 week of antibiotic therapy while being inpatient. - Time Spent with Patient Total time spent providing and/or coordinating discharge services: - Constitutional Vitals: Temp Pulse Resp BP Pulse Ox 98.5 F 95 20 129/77 98 10/15/17 08:10 10/15/17 08:10 10/15/17 08:10 10/15/17 08:10 10/15/17 08:10 General appearance: Present: cachectic, A&O X 3, pleasant, no acute distress - Other Additional findings: General: pleasant without distress Heart: Regular rate and rhythm with no murmur Lungs: Clear to auscultation bilaterally, anteriorly Abdomen: Soft nontender, nondistended positive bowel sounds Skin: large sacral ulcer that is dressed, clean and dry. not observed due to being dressed. Extremities: absent pedal edema. Neuro: Alert and oriented 3. Vascular: Pedal and radial pulses 2 out of 4 - VTE Documentation of Mechanical Device: Intermittent pneumatic compression device <Nir Webb - Last Filed: 10/15/17 15:40> Date of Encounter: 10/15/17 - Discharge Diagnosis (1) Sepsis Status: Resolved Qualifiers: Sepsis type: sepsis due to unspecified organism Qualified Code(s): A41.9 - Sepsis, unspecified organism (2) Cellulitis Status: Acute Qualifiers: Site of cellulitis: buttock Qualified Code(s): L03.317 - Cellulitis of buttock (3) Decubitus ulcer, stage 4 with infection Status: Acute (4) COPD (chronic obstructive pulmonary disease) Status: Chronic Qualifiers: COPD type: emphysema Emphysema type: panlobular Qualified Code(s): J43.1 - Panlobular emphysema (5) Metastatic cancer to bone Status: Chronic (6) Hyponatremia Status: Chronic (7) Protein-calorie malnutrition, severe Status: Chronic (8) Acute urinary retention Status: Acute (9) Anxiety Status: Chronic (10) Hypertension Status: Chronic Qualifiers: Hypertension type: essential hypertension Qualified Code(s): I10 - Essential (primary) hypertension Date of admission: 10/09/17 08:31 Primary care physician: Dario Díaz [facility] course: Mr. Santoyo is a 67 year old male - Time Spent with Patient Total time spent providing and/or coordinating discharge services: - Constitutional Vitals: Temp Pulse Resp BP Pulse Ox 98.5 F 95 20 129/77 98 10/15/17 08:10 10/15/17 08:10 10/15/17 08:10 10/15/17 08:10 10/15/17 08:10 - Attending Attestation I have independently seen and examined this patient on 10/15/17 and discussed plan of care with him and the resident physician 66 M with metastatic CA, stage IV decubitus ulcer admitted for management of sepsis secondary to Infected decubitus ulcer with MSSA and proteus No new complains Cachectic on exam, not in distress, anicteric, no pedal edema, with intact dressing Labs unremarkable He is for d/c to home hospice when SW cleared Rest of details is as in resident physician's documentation
--- NOTE | 2017-10-15 09:46 | Physician Discharge Referral ---
Home Health/Hosp Referral Info Transfer to: Home Health, Hospice Attending Provider: ganesh Provider in Charge Post Discharge: PCP - Diagnosis (1) Sepsis Priority: Primary Status: Resolved (2) Acute urinary retention Priority: Secondary Status: Acute (3) Anxiety Priority: Secondary Status: Chronic (4) Cellulitis Priority: Secondary Status: Acute (5) COPD (chronic obstructive pulmonary disease) Priority: Secondary Status: Chronic (6) Decubitus ulcer, stage 4 with infection Priority: Secondary Status: Acute (7) Hypertension Priority: Secondary Status: Chronic (8) Hyponatremia Priority: Secondary Status: Chronic (9) Metastatic cancer to bone Priority: Secondary Status: Chronic (10) Protein calorie malnutrition Priority: Secondary Status: Chronic - Respiratory Orders Oxygen / L per min (2L), None Smoking Cessation: Smoking cessation has been advised. For more information, call the [employer] Quit Line at 4-475-EBRX-NOW. - Diet/Nutrition Diet/Nutrition Orders: Regular (ensure TID) - Activity Activity Orders: Chair, Bedrest - Services Needed Following services are medically necessary services: Nursing, Home Health Aide Other Treatments: Daily wound care- cleanse with soap and water and pat dry, pack wound with kerlex fluffs moistened with 1/4 strength Dakins solution, cover with ABD pad and tape to secure daily with Medipore - Transfer Medications Prescriptions: LORazepam Oral Conc [Ativan Oral Conc] 1 mg PO Q6HR #30 mls Dronabinol [Marinol] 5 mg PO BID #60 capsule levoFLOXacin [Levaquin] 750 mg PO DAILY #14 tablet Morphine Immed Rel [Morphine Sulfate] 15 mg PO Q2H PRN #60 tab PRN Reason: cancer pain hospice Morphine Oral CONC [Roxanol] 0.75 ml PO Q2H PRN #60 ml PRN Reason: cancer pain hospice Sodium Hypochlorite 0.25% [Dakin's (Half-Strength 0.25%)] 1 appl TP DAILY #4 bottle Tiotropium [Spiriva] 18 mcg IH DAILYR #1 inh Home Medications: Albuterol Sulfate [Ventolin Hfa] 2 puff IH Q4H PRN 05/23/17 [History] Umeclidinium Brm/Vilanterol Tr [Anoro Ellipta 62.5-25 Mcg INH] 1 puff IH DAILY 05/23/17 [History] amLODIPine [Norvasc] 5 mg PO BID 05/23/17 [History] Folic Acid 1 mg PO DAILY #30 tablet 06/05/17 [Rx] Docusate [Colace] 100 mg PO BID PRN 06/18/17 [History] Acetaminophen [Tylenol] 650 mg PO Q6HR PRN tablet 07/21/17 [Rx] Quetiapine Fumarate [Seroquel] 25 mg PO HS #30 tablet 07/21/17 [Rx] ALPRAZolam [Xanax 0.25 MG Tablet] 0.25 mg PO TID PRN #90 tablet 09/27/17 [Rx] Morphine Immed Rel [Morphine Sulfate] 15 mg PO Q4HR PRN 7 Days #28 tab 10/05/17 [Rx] Dronabinol [Marinol] 5 mg PO BID #60 capsule 10/15/17 [Rx] LORazepam Oral Conc [Ativan Oral Conc] 1 mg PO Q6HR #30 mls 10/15/17 [Rx] Morphine Immed Rel [Morphine Sulfate] 15 mg PO Q2H PRN #60 tab 10/15/17 [Rx] Morphine Oral CONC [Roxanol] 0.75 ml PO Q2H PRN #60 ml 10/15/17 [Rx] Sodium Hypochlorite 0.25% [Dakin's (Half-Strength 0.25%)] 1 appl TP DAILY #4 bottle 10/15/17 [Rx] Tiotropium [Spiriva] 18 mcg IH DAILYR #1 inh 10/15/17 [Rx] levoFLOXacin [Levaquin] 750 mg PO DAILY #14 tablet 10/15/17 [Rx] Allergies/Adverse Reactions: 3 Allergy/AdvReac Type Severity Reaction Status Date / Time codeine Allergy Hives Verified 10/08/17 14:44 Certification: Further, I certify that my clinical findings support that this patient is homebound (i.e. absences from home require considerable and taxing effort and are for medical reasons or religion services or infrequently or short duration when for other reasons) because: Homebound Reason: Patient requires assistance of a person or device to safely leave home, Absences from home are contraindicated except to recieve medical care, Post-surgery restriction and or conditions limit ability to leave home, Leaving home requires considerable and taxing effort due to condition, Severity of cardiac or pulmonary status limits activity tolerance Attestation: My signature below is to certify that this patient is under my care and that I, or nurse practitioner, or a physician's therapist's assistant working with me, has a face-to -face encounter with this patient.
[2017-10-15] MEDS ORDERED: Morphine Oral CONC 5 MG/0.25 ML ORAL.SYG PO PRN (10:00)
[2017-10-15] MEDS: Tiotropium 18 MCG inhalation IH SCH (10:56)
--- NOTE | 2017-10-15 14:14 | Electrocardiograph Report ---
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
--- NOTE | 2017-10-15 14:44 | Palliative Progress Note ---
Date of Encounter: 10/15/17 Time of Encounter: 09:45 - Assessment and plan (1) Advanced directives, counseling/discussion Current Visit: No Status: Acute Assessment and plan: DO NOT RESUSCITATE comfort care as the patient will be starting with hospice today. Order was placed in the state form was placed on the chart. (2) Full code status Current Visit: No Status: Acute (3) Primary cancer of right lung metastatic to other site Current Visit: No Status: Chronic (4) Metastatic cancer to bone Current Visit: Yes Status: Chronic Assessment and plan: Agent is deciding on a moment by moment basis much pain medication to use versus sedated. He is making these decisions with the assistance of staff. (5) Dysphagia Current Visit: Yes Status: Acute Assessment and plan: Nystatin swish and swallow did not help there was never any evidence of thrush in the first place. He is having still some difficulty with swallowing at times I have recommended liquid oral morphine for him due to this. - Time Spent With Patient Total time spent is greater than 50% in coordination of care (as documented) at patient's floor/unit and/or counseling patient: - Subjective Interval history: The patient reports the pain is under adequate control, however he is having a difficult time swallowing pills. He is not wish to have any fentanyl although I do not really fit a woodwork for him very well anyway as his body habitus is quite thin and he is reluctant to try liquid sublingual morphine but he will do so. His charge today to home hospice. - Constitutional Vitals: Abnormal lab results RBC 2.99 M/mcL (4.19-5.50) L 10/14/17 08:23 Hgb 9.2 g/dL (12.9-16.9) L 10/14/17 08:23 Hct 29.2 % (37.5-50.1) L 10/14/17 08:23 MCHC 31.5 g/dL (31.6-35.5) L 10/14/17 08:23 RDW 16.4 % (11.5-14.5) H 10/14/17 08:23 MPV 9.3 fL (9.4-12.4) L 10/14/17 08:23 Neutrophils # 9.8 K/mcL (1.6-8.9) H 10/14/17 08:23 Lymphocytes # 0.4 K/mcL (0.6-4.6) L 10/14/17 08:23 Nucleated RBCs/100 WBC 0.2 /100 WBC (0) H 10/08/17 14:05 PT 12.6 Seconds (9.4-12.1) H 10/08/17 14:05 Sodium 135 mEq/L (136-145) L 10/14/17 08:23 Creatinine 0.55 mg/dL (0.70-1.30) L 10/14/17 08:23 BUN/Creatinine Ratio 36 (6-26) H 10/14/17 08:23 Phosphorus 5.6 mg/dL (2.7-4.5) H 10/09/17 00:32 Alkaline Phosphatase 202 Units/L (34-104) H 10/08/17 14:05 Serum Total Protein 6.3 g/dL (6.4-8.9) L 10/08/17 14:05 Albumin 3.0 g/dL (3.5-5.7) L 10/08/17 14:05 Albumin/Globulin Ratio 0.9 (1.1-2.2) L 10/08/17 14:05 General appearance: Present: no acute distress - Head Head exam: Present: atraumatic, normal inspection - Eye Eye exam: Present: normal appearance - ENT ENT exam: Present: mucous membranes moist - Respiratory Respiratory exam: Present: decreased breath sounds - Cardiovascular Cardiovascular exam: Present: RRR - GI/Abdominal GI/Abdominal exam: Present: normal bowel sounds, soft. Absent: tenderness - Extremities Exam Extremities exam: Present: normal inspection. Absent: tenderness - Neurological Exam Neurological exam: Present: alert, oriented X3 - Psychiatric Psychiatric exam: Absent: agitated, anxious - Skin Skin exam: Present: dry, warm Palliative Quality Palliative Quality: Screen for Code Status: Yes, Screen for Goals of Care: Yes, Screen for Pain: Yes, If Pain Regimen Started, Initiate Bowel Regimen: Yes, Screen for Nausea/Vomitting: Yes Code Status: 10/08/17 16:47 Resuscitation Status: Active [RES] Routine Comment: Resuscitation Status: [id number] - Labs CBC & Chem 7: 10/14/17 08:23 10/14/17 08:23 - ABG Interpretation ABG results: PT/INR, D-dimer PT 12.6 Seconds (9.4-12.1) H 10/08/17 14:05 Consult Discharge Plan - Plan Instructions: Lorazepam (By mouth), Morphine, Rapid Release (By mouth) Additional Instructions: Daily wound care- cleanse with soap and water and pat dry, pack wound with kerlex fluffs moistened with 1/4 strength Dakins solution, cover with ABD pad and tape to secure daily with Medipore Referrals: Carlito Rivera MD [Non-Partnered Physician] - (F/u in 7-10 days in the outpatient wound care with Dr. Rivera) Anna Marie Bishop AQUACULTURIST [Advanced Practice Nurse] - 10/17/17 1:45 pm Prescriptions: LORazepam Oral Conc [Ativan Oral Conc] 1 mg PO Q6HR #30 mls Dronabinol [Marinol] 5 mg PO BID #60 capsule levoFLOXacin [Levaquin] 750 mg PO DAILY #14 tablet Morphine Immed Rel [Morphine Sulfate] 15 mg PO Q2H PRN #60 tab PRN Reason: cancer pain hospice Morphine Oral CONC [Roxanol] 0.75 ml PO Q2H PRN #60 ml PRN Reason: cancer pain hospice Sodium Hypochlorite 0.25% [Dakin's (Half-Strength 0.25%)] 1 appl TP DAILY #4 bottle Tiotropium [Spiriva] 18 mcg IH DAILYR #1 inh
--- NOTE | 2017-10-15 14:48 | Event Note ---
Date of Encounter: 10/15/17 Time of Encounter: 14:47 Hospice medical housekeeper certification of terminal illness: Hospice benefit. Start: 10/15/2017 Hospice benefit. In: +90 days Palliative performance scale: 40% History: She with history of metastatic lung cancer for which there is no further treatment. Patient also has a very large sacral decubitus required recent surgical debridement. No longer eligible for any further chemotherapy and therefore he has opted for hospice and no further aggressive care. Believe that These findings support a life expectancy of 6 months or less. I attest that I have compose the above narrative based on my review of the patient's medical records, and or on my examination of the patient. Vin Roberto M.D. Associate medical historian. [facility]
== END 2017-10-15 18:22 | disposition hospice, home (50) | DRG 853 ==
LOC: EMEROO 13:24 → 2ANU 13:24 → SUATTDRO 10-09 08:31
PROVIDERS: ADMIT Internal Medicine Nephrology; ATTEND Internal Medicine